=== PATIENT | female | born 1980 | race Caucasian/White ===

== ENCOUNTER 2016-04-19 22:41 | Observation (INO) | payer OTHER ==
[~2016-04-19] VITALS: Ht 180.3 cm; Wt 68.0 kg
[~2016-04-19 22:41] MED LIST: DICL75 PO; ORPH100T PO; Z.0.NO CURRENT MEDS
[2016-04-19 22:42] VITALS: BP 121/80; PULSE 95; RESP 20; TEMP 98.8; O2SAT 98
[2016-04-19] MEDS ORDERED: SODIUM CHLOR 0.9% 1000 ML INJ 1,000 ML IV ONE (23:15)
[2016-04-19] MEDS ORDERED: GLUCAGON 1 MG/ML VIAL IV PUSH ONE (23:15)
[2016-04-19] MEDS ORDERED: PANTOPRAZOLE SODIUM 40 MG VIAL IV PUSH ONE (23:30)
--- NOTE | 2016-04-19 23:37 | PD ---
HPI Chief Complaint: Foreign Body Time Seen by Provider: 23:01 Travel History International Travel<30 days: No Contact w/Intl Traveler<30days: No Traveled to known affect area: No History of Present Illness HPI The patient is a 36 year old female who presents to the [facility] emergency department with a history of reportedly having difficulty swallowing some starchy foods and meat over the last year. She reports that she has had associated heartburn and reflux. She reports that she has tried Prevacid without any relief. She reports that over the last month her symptoms have greatly worsened. She reports that today she went to [employer] and ate a sample of steak and asparagus and immediately began to choke on it. She reports that she did not cough, however it felt like the food was stuck in her throat. The patient reports that since then she has not been able to drink any fluids. She reports that she cannot even swallow her own saliva. She reports having central burning sensation in her chest. The patient denies having any blood in her stool or black or tarry stools. She reports that she last moved her bowels on Wednesday. She reports having problems with chronic constipation. She reports that she occasionally takes MiraLAX or senna. The patient reports that she has a history of migraine headaches and usually will have a headache 3-4 times per week. She reports that she takes BC powder 3-4 times per week for this. She denies taking any other olwo-fri-lxraicc pain medication. She reports that she drinks alcohol, usually 2 glasses of wine weekend. The patient denies having a primary care physician. She denies ever having endoscopy. The patient denies any recent fevers, cough, congestion, neck pain, shortness of breath, abdominal pain, vomiting, diarrhea, urinary symptoms, or neurologic symptoms. LMP: [facility] Past Medical History Narrative Medical The patient's past medical history is significant for ovarian cysts, history of headaches. Medical History: Denies Significant Hx Diminished Hearing: No ?: Not : 1 Miscarriage: 1 Ovarian Cysts: Yes (CYSTS REMOVED 2003) Past Surgical History Narrative Surgical The patient's past surgical history is significant for 2 ovarian cysts being resected laparoscopically. Gynecologic Surgery: Yes (OVARIAN CYST 2003) Social History Alcohol Use: Yes (WEEKENDS) Tobacco Use: No Substance Use: No (DENIES) Allergies-Medications (Allergen,Severity, Reaction): Coded Allergies: No Known Allergies (Verified , 04/19/16) Reported Meds & Prescriptions Reported Meds & Active Scripts Active Pantoprazole (Pantoprazole Sodium) 40 Mg Tab 40 Mg PO DAILY 30 Days Reported Seasonique (Levonorgestrel-Ethinyl Estradiol) 0.15-0.03-0.01 Mg Tab 1 Tab PO DAILY Narrative Medication She reports taking BC powders for headaches 3-4 times per week. Review of Systems Except as stated in HPI: all other systems reviewed are Neg General / Constitutional: No: Fever Eyes: No: Visual changes HENT: No: Headaches Cardiovascular: Positive: Chest Pain or Discomfort Respiratory: No: Cough, Shortness of Breath Gastrointestinal: Positive: Nausea, Constipation, Indigestion, No: Vomiting, Diarrhea, Abdominal Pain, Changes in Bowel Habits, Loss of Appetite Genitourinary: No: Dysuria Musculoskeletal: No: Pain Skin: No Rash Neurologic: No: Weakness Psychiatric: No: Depression Endocrine: No: Polydipsia Hematologic/Lymphatic: No: Easy Bruising Physical Exam Narrative General: The patient is well-developed well-nourished female who is uncomfortable appearing on examination, intermittently spitting saliva into a cup. Head and Neck exam: Head is normocephalic atraumatic. Eyes: EOMI, pupils are equal round and reactive to light. Nose: Midline septum with pink mucous membranes Mouth: Dentition unremarkable. Moist mucus membranes. Posterior oropharynx is not erythematous. No tonsillar hypertrophy. Uvula midline. Airway patent. Neck: No palpable lymphadenopathy. No nuchal rigidity. No thyromegaly. Cardiovascular: Regular rate and rhythm without murmurs, gallops, or rubs. Lungs: Clear to auscultation bilaterally. No wheezes, rhonchi, or rales. Abdomen: Soft, without tenderness to palpation in all 4 quadrants of the abdomen. No guarding, rebound, or rigidity. Normal bowel sounds are audible. No tenderness on palpation of McBurney's point. Extremities: No clubbing, cyanosis, or edema. 2+ pulses in all 4 extremities. No calf tenderness on palpation. Back: No spinous process tenderness to palpation. No costovertebral angle tenderness to palpation. Neurologic Exam: Grossly nonfocal. Skin Exam: No rash noted. Intact skin that is warm and dry. Data Data Last Documented VS Vital Signs Date Time Temp Pulse Resp B/P Pulse Ox O2 Delivery O2 Flow Rate FiO2 04/19/16 22:42 98.8 95 20 121/80 98 Room Air Orders Chest, Single Ap (04/19/16 23:13) Iv Access Insert/Monitor (04/19/16 23:13) Ecg Monitoring (04/19/16 23:13) Oximetry (04/19/16 23:13) Sodium Chlor 0.9% 1000 Ml Inj (Ns 1000 M (04/19/16 23:15) Glucagon Inj (Glucagon Inj) (04/19/16 23:15) Electrocardiogram (04/19/16 23:29) Complete Blood Count With Diff (04/19/16 23:29) Comprehensive Metabolic Panel (04/19/16 23:29) Lipase (04/19/16 23:29) Ed Urine Pregnancytest Poc (04/19/16 23:29) Pantoprazole Inj (Protonix Inj) (04/19/16 23:30) Admit Order (Ed Use Only) (04/20/16 01:01) Labs Laboratory Tests Test 04/19/16 23:40 White Blood Count 14.5 TH/MM3 Red Blood Count 3.79 MIL/MM3 Hemoglobin 11.2 GM/DL Hematocrit 32.5 % Mean Corpuscular Volume 85.8 FL Mean Corpuscular Hemoglobin 29.4 PG Mean Corpuscular Hemoglobin 34.3 % Concent Red Cell Distribution Width 13.3 % Platelet Count 555 TH/MM3 Mean Platelet Volume 7.7 FL Neutrophils (%) (Auto) 75.9 % Lymphocytes (%) (Auto) 13.0 % Monocytes (%) (Auto) 6.9 % Eosinophils (%) (Auto) 3.7 % Basophils (%) (Auto) 0.5 % Neutrophils # (Auto) 11.0 TH/MM3 Lymphocytes # (Auto) 1.9 TH/MM3 Monocytes # (Auto) 1.0 TH/MM3 Eosinophils # (Auto) 0.5 TH/MM3 Basophils # (Auto) 0.1 TH/MM3 CBC Comment DIFF FINAL Differential Comment Sodium Level 141 MEQ/L Potassium Level 3.7 MEQ/L Chloride Level 106 MEQ/L Carbon Dioxide Level 24.5 MEQ/L Anion Gap 11 MEQ/L Blood Urea Nitrogen 14 MG/DL Creatinine 0.72 MG/DL Estimat Glomerular Filtration 91 ML/MIN Rate Random Glucose 82 MG/DL Calcium Level 8.7 MG/DL Total Bilirubin 0.2 MG/DL Aspartate Amino Transf 10 U/L (AST/SGOT) Alanine Aminotransferase 15 U/L (ALT/SGPT) Alkaline Phosphatase 92 U/L Total Protein 8.1 GM/DL Albumin 3.3 GM/DL Lipase 81 U/L MDM Medical Decision Making Medical Screen Exam Complete: Yes Emergency Medical Condition: Yes Medical Record Reviewed: Yes Interpretation(s) Laboratory Tests Test 04/19/16 23:40 White Blood Count 14.5 TH/MM3 (4.0-11.0) Red Blood Count 3.79 MIL/MM3 (4.00-5.30) Hemoglobin 11.2 GM/DL (11.6-15.3) Hematocrit 32.5 % (35.0-46.0) Platelet Count 555 TH/MM3 (150-450) Neutrophils (%) (Auto) 75.9 % (16.0-70.0) Neutrophils # (Auto) 11.0 TH/MM3 (1.8-7.7) Monocytes # (Auto) 1.0 TH/MM3 (0-0.9) Eosinophils # (Auto) 0.5 TH/MM3 (0-0.4) Aspartate Amino Transf 10 U/L (15-37) (AST/SGOT) Albumin 3.3 GM/DL (3.4-5.0) Last Impressions Chest X-Ray 04/19/16 5750 Signed Impressions: Service Date/Time: Tuesday, April 19, 2016 23:21 - CONCLUSION: 1. No foreign body is identified. 2. Possible nodule right base Grayson Aceves MD Differential Diagnosis Acid reflux with stricture formation, versus esophageal food bolus Narrative Course During the course of the patients emergency department visit, the patients history, examination, and differential diagnosis were reviewed with the patient. The patient had IV access obtained and blood work sent for analysis. The patient was placed on a electronic device monitor with oximetry and blood pressure monitoring. An EKG has been ordered. A chest x-ray has been ordered. The patient was provided Protonix 40 mg IV, normal saline 1 L IV fluid bolus, glucagon 0.5 mg IV. The patients laboratory studies were reviewed and remarkable for a white count of 14.5, hemoglobin 11.2, platelets 555, neutrophils 75.9, CMP is unremarkable. Lipase 81 Radiology studies were reviewed and remarkable for a chest x-ray that shows no foreign body, possible nodule right lung base. The patient was reexamined and reported some improvement after the glucagon, however she was given a trial of by mouth hydration and again was not able to tolerate by mouth and vomited and continued to spit out her saliva which she was not able to swallow. A call was placed out to the keyboard teacher hot stone setter. He reports that he will not be able to do her endoscopy until the morning. The patient will be admitted for observation for pain control, IV fluids. The patients results were discussed with the patient, including the plan of care. I explained that further testing and/ or monitoring is indicated based on the patients history, examination, and/ or laboratory findings. Therefore, I recommended admission for additional evaluation. The patient expressed understanding and was agreeable with this plan. The patient was admitted to the hospital in stable condition and sent to a bed under the care of the [facility] service. Physician Communication Physician Communication I spoke to Dr. Mullen at 12:45 AM. He requested that the patient be observed and nothing by mouth as he plans to take the patient for endoscopy in the morning. A call was then placed out to the [facility] regarding admission. The patient's case is discussed with Dr. Torres who did agree to admit the patient for further evaluation and treatment at this time. Diagnosis Primary Impression: Intractable vomiting Qualified Code: R11.11 - Intractable vomiting without nausea, unspecified vomiting type Additional Impression: Sensation of foreign body in esophagus Admitting Information Admitting Physician Requests: Observation Scripts Pantoprazole 40 Mg Tab40 Mg PO DAILY 30 Days Prov:Yessi Alexis DO 04/20/16 Rebecca Liz MD Apr 19, 2016 23:37
--- NOTE | 2016-04-20 00:02 | RADRPT ---
EXAM DATE/TIME: 04/19/2016 23:21 [place] COMPARISON: No previous studies available for comparison. INDICATIONS : Foreign body. MEDICAL HISTORY : None. SURGICAL HISTORY : None. ENCOUNTER: Initial ACUITY: 1 day PAIN SCORE: 0/10 LOCATION: Bilateral chest FINDINGS: The cardiac silhouette is normal in transverse diameter. There is no evidence of pneumonia. No forei gn body is identified. There is a questionable nodule in the right base. The maximal diameter of this finding is [address] scan is recommended for further evaluation if clinically indicated. This can be performed on an elective basis. CONCLUSION: 1. No foreign body is identified. 2. Possible nodule right base Grayson Aceves MD on April 19, 2016 at 23:59 Board Certified Radiologist. This report was verified electronically.
[2016-04-20 00:11] LABS: BASOPHIL # 0.1 TH/MM3 (0-0.2); BASOPHIL % 0.5 % (0.0-2.0); EOSINOPHIL # 0.5 TH/MM3 (0-0.4); EOSINOPHIL % 3.7 % (0.0-4.0); HEMATOCRIT 32.5 % (35.0-46.0); HEMO FLAGS DIFF FINAL; LYMPHOCYTE # 1.9 TH/MM3 (1.0-4.8); MEAN CELL VOLUME 85.8 FL (80.0-100.0); MEAN CORPUSCULAR HEMOGLOBIN 29.4 PG (27.0-34.0); MEAN CORPUSCULAR HGB CONC 34.3 % (32.0-36.0); MONO % 6.9 % (0.0-8.0); NEUT % 75.9 % (16.0-70.0); PLATELET COUNT 555 TH/MM3 (150-450); RED BLOOD COUNT 3.79 MIL/MM3 (4.00-5.30); RED CELL DISTRIBUTION WIDTH 13.3 % (11.6-17.2); WHITE BLOOD COUNT 14.5 TH/MM3 (4.0-11.0)
[2016-04-20 00:17] LABS: ALT (GPT) 15 U/L (10-53); ANION GAP 11 MEQ/L (5-15); AST (GOT) 10 U/L (15-37); BICARBONATE 24.5 MEQ/L (21.0-32.0); BLOOD UREA NITROGEN 14 MG/DL (7-18); CHLORIDE 106 MEQ/L (98-107); GLOMERULAR FILTRATION RATE 91 ML/MIN (>89); POTASSIUM 3.7 MEQ/L (3.5-5.1); SODIUM (NA) 141 MEQ/L (136-145)
[2016-04-20 00:19] LABS: ALKALINE PHOSPHATASE 92 U/L (45-117); TOTAL BILIRUBIN ADULT 0.2 MG/DL (0.2-1.0)
[2016-04-20] MEDS ORDERED: SODIUM CHLOR 0.9% 1000 ML INJ 1,000 ML IV SCH (01:06)
[2016-04-20] MEDS ORDERED: SODIUM CHLORIDE 0.9% FLUSH 5 ML FLUSH FLUSH PRN (01:15)
[2016-04-20] MEDS ORDERED: ONDANSETRON HCL 4 MG/2 ML VIAL IVP PRN (01:15)
[2016-04-20] MEDS ORDERED: BISACODYL 10 MG SUPP PR PRN (01:15)
[2016-04-20] MEDS ORDERED: SEASTAB2 PO (01:42)
--- NOTE | 2016-04-20 02:18 | HHI.HP ---
[facility] No Primary Care Physician Admission Diagnosis Inability to tolerate po, suspected esophageal food bolus Diagnoses: (1) Food impaction of esophagus Diagnosis: Principal (2) Intractable vomiting Diagnosis: Principal (3) Leukocytosis Diagnosis: Principal Travel History International Travel<30 Days: No Contact w/Intl Traveler <30 Da: No Traveled to Known Affected Are: No History of Present Illness This is a 36-year-old female with a PMH of Migraines who presented to the ER with complaints of sensation of foreign body in esophagus after eating. States she was at [employer] and tried a sample of steak/asparagus and immediately felt food stuck in throat. Unable to swallow liquids or solids since then, difficulty swallowing saliva as well. On arrival, BP 121/80, HR 95, O2 sat 90% on RA, Afebrile. WBC 14.5. Chemistry essentially unremarkable. CXR with no foreign body identified. Dr. Mullen consulted by ER physician, plan for EGD in am. Review of Systems Except as stated in HPI: all other systems reviewed are Neg ROS: 14 point review of systems otherwise negative. Past Family Social History Past Medical History PMH: Migraines Past Surgical History PAST SURGICAL HISTORY: Ovarian Cyst Allergies: Coded Allergies: No Known Allergies (Verified , 04/19/16) Family History PAST FAMILY HISTORY: Reviewed. No h/o DM or CAD Social History PAST SOCIAL HISTORY: Occasional alcohol. Negative for tobacco or drugs. Physical Exam Vital Signs Vital Signs Date Time Temp Pulse Resp B/P Pulse Ox O2 Delivery O2 Flow Rate FiO2 04/19/16 22:42 98.8 95 20 121/80 98 Room Air Physical Exam PE: GENERAL: Pleasant middle-aged white female in no acute distress. HEENT: PERRLA, EOMI. No scleral icterus or conjunctival pallor. No lid lag or facial droop. CARDIOVASCULAR: Regular rate and rhythm. No obvious murmurs to auscultation. No chest tenderness to palpation. RESPIRATORY: No obvious rhonchi or wheezing. Clear to auscultation. Breath sounds equal bilaterally. GASTROINTESTINAL: Abdomen soft, non-tender, nondistended. BS normal. MUSCULOSKELETAL: Extremities without clubbing, cyanosis, or edema. No obvious deformities. NEUROLOGICAL: Awake, alert and oriented x4. No focal neurologic deficits. Moving both upper and lower extremities spontaneously. Laboratory Laboratory Tests Test 04/19/16 23:40 White Blood Count 14.5 Red Blood Count 3.79 Hemoglobin 11.2 Hematocrit 32.5 Mean Corpuscular Volume 85.8 Mean Corpuscular Hemoglobin 29.4 Mean Corpuscular Hemoglobin 34.3 Concent Red Cell Distribution Width 13.3 Platelet Count 555 Mean Platelet Volume 7.7 Neutrophils (%) (Auto) 75.9 Lymphocytes (%) (Auto) 13.0 Monocytes (%) (Auto) 6.9 Eosinophils (%) (Auto) 3.7 Basophils (%) (Auto) 0.5 Neutrophils # (Auto) 11.0 Lymphocytes # (Auto) 1.9 Monocytes # (Auto) 1.0 Eosinophils # (Auto) 0.5 Basophils # (Auto) 0.1 CBC Comment DIFF FINAL Differential Comment Sodium Level 141 Potassium Level 3.7 Chloride Level 106 Carbon Dioxide Level 24.5 Anion Gap 11 Blood Urea Nitrogen 14 Creatinine 0.72 Estimat Glomerular Filtration 91 Rate Random Glucose 82 Calcium Level 8.7 Total Bilirubin 0.2 Aspartate Amino Transf 10 (AST/SGOT) Alanine Aminotransferase 15 (ALT/SGPT) Alkaline Phosphatase 92 Total Protein 8.1 Albumin 3.3 Lipase 81 Result Diagram: 04/19/16233904/19/162339 Assessment and Plan Problem List: (1) Food impaction of esophagus ICD Code: T18.128A Status: Acute (2) Intractable vomiting ICD Code: R11.10 Status: Acute (3) Leukocytosis ICD Code: D72.829 Status: Acute Assessment and Plan A/P: 1. Food Impaction: s/p acute food impaction after eating steak/asparagus earlier tonight, unable to swallow saliva, liquids or solids. CXR w/ no foreign body noted, images reviewed by me. Dr. Mullen consulted by ER physician, plan is for EGD in am. NPO, IVF, analgesics as needed. 2. Intractable Vomiting: now resolved. Continue w/ IV Zofran as needed. 3. Leukocytosis: WBC 14.5, no clear infectious etiology, likely stress response. CXR negative as above. 4. DVT Prophylaxis: SCD/Teds. 5. Social work for d/c planning as needed. 6. Case discussed w/ ER physician at length. Tamiko Torres MD Apr 20, 2016 02:18
[2016-04-20 03:06] VITALS: BP 104/68; PULSE 89; RESP 18; TEMP 97.9; O2SAT 99
[2016-04-20] MEDS: MORPHINE SULFATE 4 MG/ML INJ IV PRN ×4 (03:16→13:21)
[2016-04-20 08:00] VITALS: BP 110/55; PULSE 83; RESP 18; TEMP 99; O2SAT 98
[2016-04-20] MEDS ORDERED: SODIUM CHLORIDE 0.9% FLUSH 5 ML FLUSH FLUSH SCH (09:00)
[2016-04-20 09:35] VITALS: BP 104/68; PULSE 89; RESP 18; TEMP 97.9; O2SAT 99
--- NOTE | 2016-04-20 09:38 | EKG ---
Date Performed: 04/19/2016 Time Performed: 23:49:56 PTAGE: 36 years EKG: Sinus rhythm NORMAL ECG NO PREVIOUS TRACING DOCTOR: Grayson Grace Interpretating Date/Time 04/20/2016 09:36:23
[2016-04-20] MEDS ORDERED: LACTATED RINGER'S 1,000 ML BAG IV ONE (11:00)
[2016-04-20] MEDS ORDERED: ONDANSETRON HCL 4 MG/2 ML VIAL IV PUSH ONE (11:16)
[2016-04-20] MEDS ORDERED: PROPOFOL 200 MG/20 ML AMP IV ONE (11:16)
[2016-04-20 11:35] VITALS: TEMP 98.4
[2016-04-20 11:45] VITALS: BP 113/2; PULSE 84; RESP 16; O2SAT 96
--- NOTE | 2016-04-20 12:29 | PD.CONS ---
HPI History of Present Illness This is a 36 year old female who came to the ER for evaluation after getting a piece of meat caught in her esophagus. She reports that she has been having issues with dry solids occasionally getting caught in her mid esophagus for about a year. This seems to have been gradually worsening, although it suddenly became much worse about a week ago. She was at [employer] and had a sample of steak and asparagus and reports that it became lodged and that she could not get this to go down and that she could not even pass any water. She denies any heartburn or reflux prior to this, but did have some after the food became lodged. She reports that her appetite has been good up until this point and she has not had any other GI issues. Of note, she does get migraines and she takes BC ASA about 3-4 times a week. (Ana Cristina Cochran) PFSH Past Medical History Migraines Past Surgical History Surgery for Ovarian Cyst LEEP procedure (Ana Cristina Cochran) Coded Allergies: No Known Allergies (Verified , 04/19/16) Medications Allergies Coded Allergies Type Severity Reaction Last Updated Verified No Known Allergies 04/19/16 Yes Active Scripts Medications Dose Route/Sig Days Date Category Seasonique (Levonorgestrel-Ethinyl Estradiol) 0.15-0.03-0.01 Mg Tab 1 Tab PO DAILY 04/20/16 Reported Family History Maternal grandmother has DM Social History Occasional alcohol. Negative for tobacco or drugs. (Ana Cristina Cochran) Review of Systems Constitutional: DENIES: Fatigue, Weight loss Respiratory: DENIES: Cough Cardiovascular: DENIES: Chest pain Gastrointestinal: COMPLAINS OF: Difficulty Swallowing, Odynophagia, Heartburn, DENIES: Abdominal pain, Black stools, Bloody stools, Constipation, Diarrhea, Nausea, Vomiting, Anorexia Musculoskeletal: DENIES: Joint pain Integumentary: DENIES: Abnormal pigmentation Hematologic/lymphatic: DENIES: Bruising Neurologic: COMPLAINS OF: Headache Psychiatric: DENIES: Confusion (Ana Cristina Cochran) GI Exam Vitals I&O Vital Signs Date Time Temp Pulse Resp B/P Pulse Ox O2 Delivery O2 Flow Rate FiO2 04/20/16 11:45 84 16 113/2 96 Room Air 04/20/16 11:35 98.4 98 16 117/75 97 Room Air 04/20/16 09:35 97.9 89 18 104/68 99 04/20/16 08:00 99.0 83 18 110/55 98 04/20/16 03:06 97.9 89 18 104/68 99 04/19/16 22:42 98.8 95 20 121/80 98 Room Air I/O 04/19/16 04/19/16 04/19/16 04/20/16 04/20/16 04/20/16 07:00 15:00 23:00 07:00 15:00 23:00 Intake Total 300 ml 10 ml Balance 300 ml 10 ml Intake IV Total 300 ml 10 ml Imaging Last Impressions Chest X-Ray 04/19/16 8643 Signed Impressions: Service Date/Time: Tuesday, April 19, 2016 23:21 - CONCLUSION: 1. No foreign body is identified. 2. Possible nodule right base Grayson Aceves MD Laboratory Test 04/19/16 23:40 White Blood Count 14.5 TH/MM3 Red Blood Count 3.79 MIL/MM3 Hemoglobin 11.2 GM/DL Hematocrit 32.5 % Mean Corpuscular Volume 85.8 FL Mean Corpuscular Hemoglobin 29.4 PG Mean Corpuscular Hemoglobin 34.3 % Concent Red Cell Distribution Width 13.3 % Platelet Count 555 TH/MM3 Mean Platelet Volume 7.7 FL Neutrophils (%) (Auto) 75.9 % Lymphocytes (%) (Auto) 13.0 % Monocytes (%) (Auto) 6.9 % Eosinophils (%) (Auto) 3.7 % Basophils (%) (Auto) 0.5 % Neutrophils # (Auto) 11.0 TH/MM3 Lymphocytes # (Auto) 1.9 TH/MM3 Monocytes # (Auto) 1.0 TH/MM3 Eosinophils # (Auto) 0.5 TH/MM3 Basophils # (Auto) 0.1 TH/MM3 CBC Comment DIFF FINAL Differential Comment Sodium Level 141 MEQ/L Potassium Level 3.7 MEQ/L Chloride Level 106 MEQ/L Carbon Dioxide Level 24.5 MEQ/L Anion Gap 11 MEQ/L Blood Urea Nitrogen 14 MG/DL Creatinine 0.72 MG/DL Estimat Glomerular Filtration 91 ML/MIN Rate Random Glucose 82 MG/DL Calcium Level 8.7 MG/DL Total Bilirubin 0.2 MG/DL Aspartate Amino Transf 10 U/L (AST/SGOT) Alanine Aminotransferase 15 U/L (ALT/SGPT) Alkaline Phosphatase 92 U/L Total Protein 8.1 GM/DL Albumin 3.3 GM/DL Lipase 81 U/L Physical Examination HEENT: Normocephalic; atraumatic; no jaundice. Throat is clear. NECK: Neck is supple, no JVD, no lymphadenopathy. CHEST: CTA CARDIAC: Regular rate and rhythm with no murmur gallop or rubs. ABDOMEN: Soft, nondistended, nontender; no hepatosplenomegaly; bowel sounds are present in all four quadrants. EXTREMITIES: No clubbing, cyanosis, or edema. SKIN: Normal; no rash; no jaundice. HISTOPATH TECH: No focal deficits; alert and oriented times three. (Ana Cristina Cochran) Assessment and Plan Plan ASSESSMENT: - Foreign Body in esophagus, Dysphagia, Odynophagia. Intermittent dysphagia with dry foods getting caught x 1 year, worse over the past week. Had a piece of steak and asparagus get lodged in esophagus yesterday and was not able to get this down or pass liquids. Of note, she takes BC ASA about 3-4 times a week for migraines. PLAN: - Plan for egd +/- dilatation today - Obtain consents - NPO - PPI - Supportive care - Further recommendations to follow based on results of above - Pt seen and examined by Dr. Garcia and myself and this note is written on her behalf (Ana Cristina Cochran) Physician Comments seen, examined agree with above (Aga Garcia MD) Ana Cristina Cochran Apr 20, 2016 12:29 Aga Garcia MD Apr 20, 2016 18:47
[2016-04-20] MEDS ORDERED: PANT40TA3 PO (14:40)
--- NOTE | 2016-04-20 14:45 | HHI.PR ---
Subjective Remarks Follow up for food impaction. Ms. Hood underwent EGD study today. She is complaining of some discomfort but able to eat small amount. No fever, chills. GI cleared for discharge. Objective Vitals Vital Signs Date Time Temp Pulse Resp B/P Pulse Ox O2 Delivery O2 Flow Rate FiO2 04/20/16 11:45 84 16 113/2 96 Room Air 04/20/16 11:35 98.4 98 16 117/75 97 Room Air 04/20/16 09:35 97.9 89 18 104/68 99 04/20/16 08:00 99.0 83 18 110/55 98 04/20/16 03:06 97.9 89 18 104/68 99 04/19/16 22:42 98.8 95 20 121/80 98 Room Air I/O 04/19/16 04/19/16 04/19/16 04/20/16 04/20/16 04/20/16 07:00 15:00 23:00 07:00 15:00 23:00 Intake Total 300 ml 10 ml Balance 300 ml 10 ml Intake IV Total 300 ml 10 ml Result Diagram: 04/19/16 2340 04/19/16 2340 Imaging Last Impressions Chest X-Ray 04/19/16 2313 Signed Impressions: Service Date/Time: Tuesday, April 19, 2016 23:21 - CONCLUSION: 1. No foreign body is identified. 2. Possible nodule right base Grayson Aceves MD Objective Remarks GENERAL: AOX3, NAD. SKIN: Warm and dry. HEAD: Normocephalic. EYES: No scleral icterus. No injection or drainage. NECK: Supple, trachea midline. No JVD or lymphadenopathy. CARDIOVASCULAR: Regular rate and rhythm without murmurs, gallops, or rubs. RESPIRATORY: Breath sounds equal bilaterally. No accessory muscle use. GASTROINTESTINAL: Abdomen soft, non-tender, nondistended. MUSCULOSKELETAL: No cyanosis, or edema. BACK: Nontender without obvious deformity. No CVA tenderness. Procedures EGD 04/20/2016. A/P Problem List: (1) Food impaction of esophagus ICD Code: T18.128A Status: Acute (2) Intractable vomiting ICD Code: R11.10 Status: Acute (3) Leukocytosis ICD Code: D72.829 Status: Acute Assessment and Plan Ms. Hood is a 36-year-old female with a PMH of Migraines who presented to the ER with complaints of sensation of foreign body in esophagus after eating. EGD was done with dilation and disimpaction. - Esophageal food impaction - s/p EGD. - GI recommends PPI, avoid NSAIDs. - Retroflexed hiatal hernia noted as well as gastritis with superficial ulceration antrum. Full code. Ambulation. Discharge patient to home Condition on discharge: Improved Regular Diet as tolerated Ad Ginger activity Rx written: - Protonix 40mg Qday. Follow-up with GI within two weeks. Yessi Alexis DO Apr 20, 2016 2:45 pm
[2016-04-21] MEDS ORDERED: PANTOPRAZOLE SOD 40 MG DELAYED RELEASE TAB PO SCH (09:00)
== END 2016-04-20 15:24 | disposition home or self-care (01) ==
LOC: NEPE 22:41 → NEDA 04-20 01:03 → NEPFCDU 04-20 02:57
PROVIDERS: ADMIT Hospitalist; ATTEND Hospitalist
DX: T18.128A Food in esophagus causing other injury, initial encounter (principal); K29.70 Gastritis, unspecified, without bleeding; K44.9 Diaphragmatic hernia without obstruction or gangrene; K21.9 Gastro-esophageal reflux disease without esophagitis; D72.829 Elevated white blood cell count, unspecified; K59.09 Other constipation; G43.909 Migraine, unspecified, not intractable, without status migrainosus
CPT/HCPCS: 00740; 43239; 43248; 71010; 80053; 83690; 84703; 85025; 88305; 88312; 93005; 96374; 96375; 99285; C1769; C9113; G0378; J1610; J2270; J2405; J3010; J7030; J7120

== ENCOUNTER 2017-03-03 11:10 | Emergency (ER) | payer SELFPAY ==
[~2017-03-03 11:10] MED LIST changes: -DICL75 PO; -ORPH100T PO; +PANT40TA3 PO; +SEASTAB2 PO; -Z.0.NO CURRENT MEDS
[2017-03-03 11:13] VITALS: BP 129/89; PULSE 99; RESP 18; TEMP 97.5; O2SAT 100
[2017-03-03] MEDS ORDERED: PREV15CA20 PO (11:35)
--- NOTE | 2017-03-03 11:37 | PD ---
HPI Chief Complaint: Cold / Flu Symptoms Time Seen by Provider: 11:24 Travel History International Travel<30 days: No Contact w/Intl Traveler<30days: No Traveled to known affect area: No History of Present Illness HPI 36-year-old female presents to the emergency Department with complaint of nasal congestion, cough, bilateral ear pain, chest congestion for the last 3-4 weeks with worsening the past few days. Reports subjective fevers and chills. Denies throat pain. Reports shortness of breath, chest tightness, wheezing. Denies chest pain. Report body aches. Denies vomiting, abdominal pain. Been taking [place] for symptom management. If symptoms are mild in severity. He does not have an established primary care provider. Denies significant past medical history. No known allergies. Has no other medical complaints. No other modifying factors or associated signs and symptoms. PFSH Past Medical History Anxiety: Yes Depression: Yes Cancer: No Cardiovascular Problems: No Chemotherapy: No Diminished Hearing: No Endocrine: No Genitourinary: No Immune Disorder: No Musculoskeletal: No Neurologic: No Psychiatric: Yes Reproductive: No Respiratory: No Radiation Therapy: No ?: Not : 1 Miscarriage: 1 Ovarian Cysts: Yes (CYSTS REMOVED 2003) Past Surgical History Gynecologic Surgery: Yes (OVARIAN CYST 2003) Social History Alcohol Use: Yes (WEEKENDS) Tobacco Use: No Substance Use: No (DENIES) Allergies-Medications (Allergen,Severity, Reaction): Coded Allergies: No Known Allergies (Verified Adverse Reaction, Unknown, 03/03/17) Reported Meds & Prescriptions Reported Meds & Active Scripts Active Deltasone (Prednisone) 20 Mg Tab 20 Mg PO BID 5 Days Ventolin Hfa 18 GM Inh (Albuterol Sulfate) 90 Mcg/Act Aer 2 Puff INH Q4-6H PRN Tessalon Perles (Benzonatate) 100 Mg Cap 100 Mg PO TID PRN 3 Days Azithromycin 500 Mg Tab 500 Mg PO DAILY 5 Days Reported Prevacid (Lansoprazole) 15 Mg Capdr 15 Mg PO DAILY Review of Systems Except as stated in HPI: all other systems reviewed are Neg Physical Exam Narrative GENERAL: Well-nourished, well-developed female patient, in no acute distress; afebrile, nontoxic-appearing SKIN: Warm and dry. HEAD: Atraumatic. Normocephalic. EYES: Pupils equal and round. No scleral icterus. No injection or drainage. ENT: Mucosa pink and moist. No erythema or exudates. No uvular edema. No uvular , palatal, or tonsillar deviation. Airway patent. Nares without nasal blood, purulent drainage. EARS: Bilateral pinnae and external canals appear within normal limits. Bilateral tympanic membranes without erythema, dullness or perforation. NECK: Trachea midline. No lymphadenopathy. CARDIOVASCULAR: Regular rate and rhythm. No murmur appreciated. RESPIRATORY: No accessory muscle use. Lungs with mild Wheezing in bilateral bases to auscultation. Breath sounds equal bilaterally. No retractions or tachypnea. No Audible wheezing noted. Persistent dry cough. GASTROINTESTINAL: Abdomen soft, non-tender, nondistended. Hepatic and splenic margins not palpable. Bowel sounds are active 4 quadrants. MUSCULOSKELETAL: No obvious deformities. No clubbing. No cyanosis. No edema. NEUROLOGICAL: Awake and alert. Oriented 3. No obvious cranial nerve deficits. Motor grossly within normal limits. Normal speech. Moves all extremities. 5/5 strength to all extremities. PSYCHIATRIC: Appropriate mood and affect; insight and judgment normal. Data Data Last Documented VS Vital Signs Date Time Temp Pulse Resp B/P (MAP) Pulse Ox O2 Delivery O2 Flow Rate FiO2 03/03/17 11:30 Room Air 03/03/17 11:13 97.5 99 18 129/89 (102) 100 Orders Orders Chest, Single Ap (03/03/17 11:32) Prednisone (Deltasone) (03/03/17 11:45) Albuterol Neb (Albuterol Neb) (03/03/17 11:45) Influenzae A/B Antigen (03/03/17 11:37) Ed Discharge Order (03/03/17 12:41) [facility] Medical Decision Making Medical Screen Exam Complete: Yes Emergency Medical Condition: Yes Medical Record Reviewed: Yes Differential Diagnosis Bronchitis, influenza, pneumonia, viral illness Narrative Course 36-year-old female with cough/cold/flu symptoms. Patient is afebrile and nontoxic-appearing. Reports subjective fevers. Patient with wheezing in bilateral bases. No acute distress. No retractions or tachypnea. Persistent dry cough. Prednisone, albuterol nebulizer, chest x-ray, influenza ordered. 1235: Chest x-ray concludes: Mild infiltrate in the right middle lobe. On reexamination the patient reports improvement in chest tightness and shortness of breath. Lung sounds are clear and equal throughout. Azithromycin, Ventolin inhaler, prednisone, Tessalon Perles prescribed for home. Instructed patient to follow up with primary care provider. Patient verbalizes understanding and agreement with treatment plan. Patient is medically cleared and stable for discharge. Discussed reasons to return to the emergency department. Patient agrees with treatment plan. The patients vital signs are stable and the patient is stable for outpatient follow-up and treatment. Patient discharged home, stable and in no acute distress. Diagnosis Primary Impression: Pneumonia Qualified Codes: J18.1 - Lobar pneumonia, unspecified organism Referrals: [facility] Primary Care Physician Patient Instructions: Community Acquired Pneumonia (ED), General Instructions, Safe Use of Cough and Cold Medicines (ED) Departure Forms: Tests/Procedures, Work Release Enter return to work date: Mar 05, 2017 Additional Instructions: Ibuprofen or Tylenol as directed and as needed to reduce fever; may alternate ibuprofen and Tylenol as needed every 3 hours to minimize fever Mxez-duk-edtjnue cold/flu medications as directed and as needed for symptom management Get plenty of sleep/rest Drink plenty of fluids to prevent dehydration; such as Gatorade, Powerade, Pedialyte Rudyard diet to encourage nutrition such as crackers, fruit, applesauce, toast, soup etc. Use an air humidifier/turn off ceiling fans Use albuterol inhaler as needed for shortness of breath and/or wheezing Take oral steroids as prescribed and complete full course Follow-up with your primary care provider within 1 day; follow up for repeat chest x-ray in 7-10 days to verify resolution Return immediately to the emergency department with worsening of symptoms Med/Other Pt SpecificInfo: Prescription(s) given Scripts Prednisone (Deltasone) 20 Mg Tab 20 MG PO BID for 5 Days, #10 TAB 0 Refills Prov: Padmini Smith [employer] 03/03/17 Albuterol 18 GM Inh (Ventolin Hfa 18 GM Inh) 90 Mcg/Act Aer 2 PUFF INH Q4-6H Y for SOB/WHEEZING, #1 INHALER 0 Refills Prov: Padmini Smith [employer] 03/03/17 Benzonatate (Tessalon Perles) 100 Mg Cap 100 MG PO TID Y for COUGH for 3 Days, CAP 0 Refills Prov: Padmini Smith 03/03/17 Azithromycin (Azithromycin) 500 Mg Tab 500 MG PO DAILY for Infection for 5 Days, #5 TAB 0 Refills Prov: Padmini Smith 03/03/17 Disposition: 01 DISCHARGE HOME Condition: Stable Padmini Smith Mar 03, 2017 11:37
[2017-03-03] MEDS ORDERED: predniSONE 20 MG TAB PO ONE (11:45)
[2017-03-03] MEDS ORDERED: RESP: ALBUTEROL 2.5 MG/3 ML NEB (SCH) INH ONE (11:45)
--- NOTE | 2017-03-03 12:33 | RADRPT ---
EXAM DATE/TIME: 03/03/2017 12:08 [facility] COMPARISON: CHEST SINGLE AP, April 19, 2016, 23:21. INDICATIONS : Cough. MEDICAL HISTORY : None. SURGICAL HISTORY : None. ENCOUNTER: Initial ACUITY: 3 months PAIN SCORE: 0/10 LOCATION: Bilateral chest FINDINGS: A single view of the chest demonstrates a mild infiltrate in the right middle lobe. Otherwise, the re st of lung cabrera are grossly clear. There are no pleural effusions or pulmonary edema. The heart and hilar structures are within normal limits. The bony structures are intact and stable.. CONCLUSION: Mild infiltrate in the right middle lobe. Guy Arzola MD on March 03, 2017 at 12:30 Board Certified Radiologist. This report was verified electronically.
[2017-03-03] MEDS ORDERED: BENZ100 PO (12:36)
[2017-03-03] MEDS ORDERED: PRED-503 PO (12:36)
[2017-03-03] MEDS ORDERED: VENTAER INH (12:36)
[2017-03-03] MEDS ORDERED: AZIT500T2 PO (12:36)
[2017-03-10] MEDS ORDERED: SEASTAB2 PO ×2 (14:48→15:28)
[2017-03-10] MEDS ORDERED: LEVO500T8 PO (15:28)
[2017-03-10] MEDS ORDERED: VENTAER INH (15:28)
== END 2017-03-03 13:25 | disposition home or self-care (01) ==
LOC: NEPD 11:10
DX: J18.1 Lobar pneumonia, unspecified organism (principal)
CPT/HCPCS: 71010; 99284; J7512; J7613

== ENCOUNTER 2017-05-12 07:42 | Day surgery (SDC) | payer OTHER ==
[2017-05-12] VITALS (8 sets, daily range): BP systolic 78–116; BP diastolic 46–69; PULSE 82–122; RESP 17–22; TEMP 97.8–98.8; O2SAT 97–99
[~2017-05-12] VITALS: Ht 180.3 cm; Wt 58.2 kg
[~2017-05-12 07:42] MED LIST changes: +LEVO500T8 PO; -PANT40TA3 PO; +PREV15CA20 PO; +VENTAER INH
[2017-05-12] MEDS ORDERED: RANI150T PO (07:56)
[2017-05-12] MEDS ORDERED: MELO7.5T27 PO (07:57)
[2017-05-12] MEDS ORDERED: HYDR50TA94 PO (07:57)
[2017-05-12] MEDS ORDERED: LEVO2.5S4 PO (08:00)
[2017-05-12] MEDS ORDERED: SODIUM CHLOR 0.9% 1000 ML IV SCH (08:00)
[2017-05-12] MEDS ORDERED: SACC1CAP3 PO (08:01)
[2017-05-12] MEDS ORDERED: FISHCAP4 PO (08:02)
[2017-05-12] MEDS ORDERED: CALG500 PO (08:03)
[2017-05-12] MEDS ORDERED: VITA500T4 PO (08:04)
[2017-05-12] MEDS ORDERED: MAGN250T11 PO (08:05)
[2017-05-12] MEDS ORDERED: FERR325T18 PO (08:05)
[2017-05-12] MEDS ORDERED: LIDOCAINE HCL 1% 20 ML VIAL ONE ×2 (08:33→10:47)
[2017-05-12] MEDS ORDERED: MIDAZOLAM HCL 5 MG/5 ML VIAL ONE (08:50)
[2017-05-12] MEDS ORDERED: fentaNYL CITRATE 250 MCG/5 ML AMP ONE (08:50)
[2017-05-12] MEDS ORDERED: diphenhydrAMINE HCL 50 MG/ML VIAL ONE (09:08)
--- NOTE | 2017-05-12 10:39 | PD.RAD ---
Post CT Procedure Prog Note Pre Procedure Diagnosis: (1) Liver mass (2) Lymph node enlargement Post Procedure Diagnosis: Procedure Date: May 12, 2017 Supervising Radiologist: Colt Melo Anesthesia: Local, Conscious Sedation Plan of Activity Patient to Unit: ROPU Patient Condition: Good See PACS Report for procedural detail/treatment Biopsy Imaging Guidance: CT, Ultrasound Biopsy Procedure: Liver, Lymph Node Specimen: Core Biopsy Findings: Left liver mass and Rt inguinal enlarged lymph node Colt Melo MD May 12, 2017 10:38
--- NOTE | 2017-05-12 10:53 | RADRPT ---
EXAM DATE/TIME: 05/12/2017 08:56 [facility] COMPARISON: No previous studies available for comparison. EXTERNAL COMPARISON: [facility], CT Abdomen and CT Chest, May 07 2017. INDICATIONS : Enlarged inguinal lymph node; right. MEDICAL HISTORY : Ovarian cysts. Gastritis. Reflux. SURGICAL HISTORY : Ovarian cysts removed. ENCOUNTER: Initial ACUITY: 1 week PAIN SCORE: 0/10 LOCATION: Right lower quadrant ORGAN: Right lymph node SPECIMENS: Six core specimen(s) submitted for pathologic evaluation. DEVICE: 18 gauge Temno needle Post procedure scanning reveals no hematoma or other complication. The possibility does exist that the tissue obtained will be non-diagnostic. If the sample is non-mike gnostic a repeat biopsy or surgical biopsy may need to be performed. TECHNIQUE: 1. Ultrasound guidance for needle biopsy. 2. Needle biopsy. The risks, benefits and alternatives to the procedure were explained and verbal and written consent w as obtained. The site was prepped in sterile fashion. Full sterile technique was used, including ca p, mask, sterile gloves and gown and a large sterile sheet. Hand hygiene and 2% chlorhexidine and/or betadine/alcohol prep was utilized per protocol for cutaneous antisepsis. The skin and subcutaneous tissues were infiltrated with local anesthetic solution. Sterile gel and sterile probe cover were u tilized for ultrasound guidance. With the patient on the ultrasound table, images were obtained. A needle was advanced into the identified target and the number of specimens as above obtained and morris bmitted for pathologic evaluation. The patient tolerated the procedure well and left the ultrasound suite in stable condition. CONCLUSION: Uncomplicated ultrasound guided needle biopsy of an enlarged right inguinal lymph node.. Colt Melo MD on May 12, 2017 at 10:50 Board Certified Radiologist. This report was verified electronically.
--- NOTE | 2017-05-12 10:54 | RADRPT ---
EXAM DATE/TIME: 05/12/2017 09:22 [facility] COMPARISON: No previous studies available for comparison. INDICATIONS : Liver mass. SEDATION TIME: 45 minutes BIOPSY SITE: Left MEDICATION(S): 1.) 5 mg midazolam (Versed) IV 2.) 250 mcg fentanyl (Sublimaze) IV DEVICE(S): 1.) 18 gauge Temno core biopsy needle MEDICAL HISTORY : None. SURGICAL HISTORY : None. ENCOUNTER: Initial ACUITY: 1 day PAIN SCORE: 0/10 LOCATION: Left A total of three core specimen(s) were obtained and sent to the laboratory for pathologic evaluation. PROCEDURE: 1. CT guided liver biopsy. 2. Conscious sedation with continuous EKG and oximetry monitoring. 3. EKG and oximetry remained stable throughout the procedure. Prior to the procedure informed consent was obtained. Any appropriate prior imaging studies were rev iewed. Using automated exposure control and adjustment of the mA and/or kV according to patient size, radiat ion dose was kept as low as reasonably achievable to obtain optimal diagnostic quality images. DICOM format image data is available electronically for review and comparison. The site was prepped in a sterile fashion. Full sterile technique was used, including cap, mask, andrea rile gloves and gown and a large sterile sheet. Hand hygiene and 2% chlorhexidine and/or betadine/al cohol prep was utilized per protocol for cutaneous antisepsis. The skin and subcutaneous tissues wer e infiltrated with local anesthetic solution. With CT guidance the previously identified target was localized. Biopsy was performed using the presc ribed needle as above. Adequate hemostasis was obtained with compression at the puncture site. Follow-up CT scan reveals no hemorrhage. The patient tolerated the procedure well and there were no complications. The patient was returned to the Radiology Outpatient Unit in stable condition. CONCLUSION: Uncomplicated CT guided biopsy of a left hepatic mass. Colt Melo MD on May 12, 2017 at 10:51 Board Certified Radiologist. This report was verified electronically.
[2017-05-12] MEDS ORDERED: PILL SPLITTER OTHER PRN (12:30)
[2017-05-12] MEDS ORDERED: HYDROmorphone HCL 2 MG TAB PO PRN (12:30)
[2017-05-12] MEDS ORDERED: ACETAMINOPHEN 325 MG TAB PO ONE ×2 (13:30→14:00)
== END 2017-05-12 14:30 | disposition home or self-care (01) ==
LOC: HRAD 07:42 → HRIP 07:43 → HRAD 14:30
PROVIDERS: ATTEND Family Medicine
DX: R16.0 Hepatomegaly, not elsewhere classified (principal); R59.0 Localized enlarged lymph nodes
CPT/HCPCS: 38505; 47000; 76942; 77012; 88305; 88307; 88313; 88341; 88342; C1729; J1200; J2250; J3010; J7030

== ENCOUNTER 2017-05-12 16:21 | Inpatient (IN) | payer OTHER ==
[~2017-05-12] VITALS: Ht 180.3 cm; Wt 59.4 kg
[~2017-05-12 16:21] MED LIST changes: +CALG500 PO; +FERR325T18 PO; +FISHCAP4 PO; +HYDR50TA94 PO; +LEVO2.5S4 PO; +MAGN250T11 PO; +MELO7.5T27 PO; +RANI150T PO; +SACC1CAP3 PO; +VITA500T4 PO
[2017-05-12 16:36] VITALS: BP 90/54; PULSE 90; RESP 18; TEMP 98.2; O2SAT 100
[2017-05-12] MEDS ORDERED: SODIUM CHLOR 0.9% 1000 ML INJ 1,000 ML IV SCH (17:04)
[2017-05-12] MEDS ORDERED: SODIUM CHLORIDE 0.9% FLUSH 10 ML FLUSH IV FLUSH PRN ×2 (17:15→21:30)
--- NOTE | 2017-05-12 17:18 | PD ---
HPI Chief Complaint: Medical Clearance Time Seen by Provider: 16:50 Travel History International Travel<30 days: No Contact w/Intl Traveler<30days: No Traveled to known affect area: No History of Present Illness HPI 37 YO F presents to the ED for evaluation of multiple medical complaints. She endorses intermittent dizziness. She states that she woke up around 530am and had an oral temp of 103. She states that she also experienced stinging pain in the tailbone. No known injury. She complains of stinging pruritus of the back. She complains of left hip pain without trauma. She complains of intermittent right galvin pain which she states is "in the bone." She states that she has lost 20 pounds since March. She endorses night sweats for an unknown period of time. She endorses 3 week history of nonproductive cough. She denies CP, SOB , palpitations. She endorses chronic constipation,one bowel movement a week " for my lifetime." States her stools have been dark lately. She denies anorexia , N/V,abdominal pain, diarrhea. She denies risk of , states that LMP was " about a month ago." She is a current smoker. She endorse occasionally snorting cocaine. She endorses occasional alcohol use. She denies history of IVDA. She states that she had CT guided biopsies of a liver mass and a right inguinal lymph node this AM, was afebrile at that time. She was discharged from the procedure around 3pm today. She complains of right inguinal pain at the needle insertion site of the right inguinal region. She states that her PCP called her and told her to come to the ED for "low hemoglobin and problems with the biopsies." She is followed by Dr. Soriano. [facility] Past Medical History Anxiety: Yes Depression: Yes Cancer: No Cardiovascular Problems: No Chemotherapy: No Diminished Hearing: No Endocrine: No Gastrointestinal Disorders: Yes Genitourinary: No Immune Disorder: No Musculoskeletal: No Neurologic: No Psychiatric: Yes Reproductive: No Respiratory: No Radiation Therapy: No : 1 Miscarriage: 1 Ovarian Cysts: Yes (CYSTS REMOVED 2003) Past Surgical History Abdominal Surgery: Yes (ESOPHAGEAL STRETCH ) Gynecologic Surgery: Yes (OVARIAN CYST 2003) Other Surgery: Yes (BILATERAL OVARIAN CYST REMOVAL) Social History Alcohol Use: Yes (WEEKENDS) Tobacco Use: No (QUIT ) Substance Use: No (DENIES) Allergies-Medications (Allergen,Severity, Reaction): Coded Allergies: No Known Allergies (Verified Adverse Reaction, Unknown, 03/10/17) Reported Meds & Prescriptions Reported Meds & Active Scripts Active Reported Magnesium Oxide 250 Mg Tab 250 Mg PO DAILY Ferrous Sulfate 325 Mg (65 Mg Iron) Tablet 325 Mg PO DAILY Vitamin B-12 (Cyanocobalamin) 500 Mcg Tab 500 Mcg PO DAILY Calcium Gluconate 45 Mg Calcium (500 Mg) Tab 500 Mg PO DAILY 1 gram of salt is 93 mg elemental calcium. Fish Oil + D3 (Fish Oil-Cholecalciferol) 1,200-1,000 Mg-Unit Cap 1 Cap PO DAILY Probiotic (Saccharomyces Boulardii) 250 Mg Cap 250 Mg PO BID Xyzal (Levocetirizine Dihydrochloride) 2.5 Mg/5 Ml Solution 2.5 Mg PO DAILY Meloxicam 7.5 Mg Tab 7.5 Mg PO DAILY Hydroxyzine HCl 50 Mg Tab 50 Mg PO HS Ranitidine (Ranitidine HCl) 150 Mg Tab 150 Mg PO DAILY Review of Systems Except as stated in HPI: all other systems reviewed are Neg Physical Exam Narrative GENERAL: Well-nourished, well-developed thin, anxious white female in no acute distress. SKIN: Focused skin assessment warm/dry. No rashes noted. Tiny puncture wound in the right groin without signs of hematoma or active bleeding. Tiny puncture wound in the epigastric region with no active bleeding or signs of hematoma. HEAD: Normocephalic. EYES: No scleral icterus. No injection or drainage. NECK: Supple, trachea midline. No JVD or lymphadenopathy. CARDIOVASCULAR: Regular rate and rhythm without murmurs, gallops, or rubs. RESPIRATORY: Breath sounds clear and equal bilaterally. No accessory muscle use. GASTROINTESTINAL: Abdomen soft, non-tender, nondistended. Active bowel sounds. MUSCULOSKELETAL: No cyanosis, or edema. No tenderness to palpation over the tailbone, left hip, right hip or left galvin. BACK: Nontender without obvious deformity. No CVA tenderness. Data Data Last Documented VS Vital Signs Date Time Temp Pulse Resp B/P (MAP) Pulse Ox O2 Delivery O2 Flow Rate FiO2 05/12/17 17:30 98 05/12/17 16:36 98.2 90 18 90/54 (66) Orders Orders Complete Blood Count With Diff (05/12/17 17:04) Comprehensive Metabolic Panel (05/12/17 17:04) Prothrombin Time / Inr (Pt) (05/12/17 17:04) Act Partial Throm Time (Ptt) (05/12/17 17:04) Urinalysis - C+S If Indicated (05/12/17 17:04) Iv Access Insert/Monitor (05/12/17 17:04) Ecg Monitoring (05/12/17 17:04) Oximetry (05/12/17 17:04) Sodium Chlor 0.9% 1000 Ml Inj (Ns 1000 M (05/12/17 17:04) Sodium Chloride 0.9% Flush (Ns Flush) (05/12/17 17:15) Ed Urine Pregnancytest Poc (05/12/17 17:04) Drug Screen, Random Urine (05/12/17 17:04) Type And Screen (05/12/17 17:04) Hydroxyzine Pamoate (Vistaril) (05/12/17 17:15) Alcohol (Ethanol) (05/12/17 17:08) Morphine Inj (Morphine Inj) (05/12/17 18:45) Ondansetron Inj (Zofran Inj) (05/12/17 18:45) Hip, Uni(Ap&Lat) W Ap Pelvis (05/12/17 18:54) Blood Product Administration (05/12/17 18:56) Sodium Chlor 0.9% 250 Ml Inj (Ns 250 Ml (05/12/17 19:00) Diphenhydramine (Benadryl) (05/12/17 19:00) Acetaminophen (Tylenol) (05/12/17 19:00) Red Blood Cells (Rbc) (05/12/17 18:56) Admit Order (Ed Use Only) (05/12/17 19:46) Vital Signs (Adult) Q4H (05/12/17 19:46) Activity Oob With Assistance (05/12/17 19:46) Notify Dr: Other (05/12/17 19:46) Diet Regular Basic (05/12/17 Dinner) Labs Laboratory Tests Test 05/12/17 17:25 White Blood Count 11.6 TH/MM3 Red Blood Count 3.04 MIL/MM3 Hemoglobin 7.4 GM/DL Hematocrit 22.9 % Mean Corpuscular Volume 75.4 FL Mean Corpuscular Hemoglobin 24.4 PG Mean Corpuscular Hemoglobin Concent 32.4 % Red Cell Distribution Width 19.1 % Platelet Count 625 TH/MM3 Mean Platelet Volume 6.7 FL Neutrophils (%) (Auto) 85.9 % Lymphocytes (%) (Auto) 5.9 % Monocytes (%) (Auto) 7.2 % Eosinophils (%) (Auto) 0.7 % Basophils (%) (Auto) 0.3 % Neutrophils # (Auto) 10.0 TH/MM3 Lymphocytes # (Auto) 0.7 TH/MM3 Monocytes # (Auto) 0.8 TH/MM3 Eosinophils # (Auto) 0.1 TH/MM3 Basophils # (Auto) 0.0 TH/MM3 CBC Comment DIFF FINAL Differential Comment Prothrombin Time 10.6 SEC Prothromb Time International Ratio 1.0 RATIO Activated Partial Thromboplast Time 45.5 SEC Urine Color LIGHT-YELLOW Urine Turbidity CLEAR Urine pH 6.0 Urine Specific [place] 1.001 Urine Protein NEG mg/dL Urine Glucose (UA) NEG mg/dL Urine Ketones NEG mg/dL Urine Occult Blood NEG Urine Nitrite NEG Urine Bilirubin NEG Urine Urobilinogen LESS THAN 2.0 MG/DL Urine Leukocyte Esterase NEG Urine WBC LESS THAN 1 /hpf Microscopic Urinalysis Comment CULT NOT INDICATED Blood Urea Nitrogen 9 MG/DL Creatinine 0.79 MG/DL Random Glucose 67 MG/DL Total Protein 8.5 GM/DL Albumin 2.8 GM/DL Calcium Level 8.9 MG/DL Alkaline Phosphatase 220 U/L Aspartate Amino Transf (AST/SGOT) 21 U/L Alanine Aminotransferase (ALT/SGPT) 26 U/L Total Bilirubin 0.4 MG/DL Sodium Level 137 MEQ/L Potassium Level 3.4 MEQ/L Chloride Level 101 MEQ/L Carbon Dioxide Level 27.4 MEQ/L Anion Gap 9 MEQ/L Estimat Glomerular Filtration Rate 81 ML/MIN Ethyl Alcohol Level LESS THAN 3 MG/DL MDM Medical Decision Making Medical Screen Exam Complete: Yes Emergency Medical Condition: Yes Differential Diagnosis Symptomatically anemia versus GI bleed versus musculoskeletal pain versus metabolic derangement versus other Narrative Course 37-year-old female presents to the ED for evaluation of intermittent dizziness, nights sweats, bone pain, pruritus weight loss, dark stools. She had CT guided biopsies of a liver mass and right inguinal lymph nodes this a.m. On presentation she complains of pain in the right groin needle insertion site. She states that her PCPs office called and told her to come to the ED for low hemoglobin. She is followed by Dr. Soriano. Vitals reviewed, BP 90/54 on presentation. Physical exam reveals no focal neuro deficits. Chest CT AB. Abdomen soft and nontender. No evidence of hematoma or active bleeding at the CT biopsy sites. IV was established. Patient was administered 50 mg Vistaril and 1 L normal saline. She complained of pain and was administered 4 mg morphine and 4 mg Zofran. I spoke with Dr. Soriano who states that she has seen the patient once. She states that the patient's hemoglobin has dropped from 8 to 7 in 1 week. She states that she sent the patient for biopsies and is suspicious of lymphoma. CBC: WBC 11.6, hemoglobin 7.4. Hematocrit 22.9. Platelets 625. INR 1.0. CMP: BUN 9. Creatinine 0.79. ER impression test: Negative. UA: No culture indicated. Alcohol less than 3. Hip and pelvis x-ray: Negative evaluation of the left hip per radiology read. I discussed the results of the workup with the patient as well as my recommendation for transfusion and observation. Patient is agreeable to this plan. 2 units packed red blood cells to be administered pending type and screen. I spoke with Dr. Bains who agrees to accept the patient to the medicine service. Please see medicine notes for disposition. [facility] Point of Care Internal Pos. & Neg. Controls: Passed Fecal Specimen Occult Blood: Positive Comment Faintly positive. Tina Mcleod May 12, 2017 17:18
[2017-05-12 17:30] VITALS: O2SAT 98
[2017-05-12 17:42] LABS: BILIRUBIN, URINE NEG (NEG); BLOOD, URINE NEG (NEG); GLUCOSE,URINE NEG (NEG); KETONE, URINE NEG (NEG); NITRITE,URINE NEG (NEG); URINE COLOR LIGHT-YELLOW (YELLW/STRAW); URINE LEUKOCYTE ESTERASE NEG (NEG)
[2017-05-12 17:49] LABS: BASOPHIL % 0.3 % (0.0-2.0); EOSINOPHIL # 0.1 TH/MM3 (0-0.4); EOSINOPHIL % 0.7 % (0.0-4.0); HEMATOCRIT 22.9 % (35.0-46.0); HEMOGLOBIN 7.4 GM/DL (11.6-15.3); LYMPH % 5.9 % (9.0-44.0); LYMPHOCYTE # 0.7 TH/MM3 (1.0-4.8); MEAN CELL VOLUME 75.4 FL (80.0-100.0); MEAN CORPUSCULAR HEMOGLOBIN 24.4 PG (27.0-34.0); MEAN CORPUSCULAR HGB CONC 32.4 % (32.0-36.0); MEAN PLATELET VOLUME 6.7 FL (7.0-11.0); MONO % 7.2 % (0.0-8.0); MONOCYTE # 0.8 TH/MM3 (0-0.9); NEUT % 85.9 % (16.0-70.0); PLATELET COUNT 625 TH/MM3 (150-450); RED BLOOD COUNT 3.04 MIL/MM3 (4.00-5.30); RED CELL DISTRIBUTION WIDTH 19.1 % (11.6-17.2); WHITE BLOOD COUNT 11.6 TH/MM3 (4.0-11.0)
[2017-05-12 18:01] LABS: PROTHROMBIN TIME - PATIENT 10.6 SEC (9.8-11.6)
[2017-05-12 18:03] LABS: ALBUMIN 2.8 GM/DL (3.4-5.0); AST (GOT) 21 U/L (15-37); BICARBONATE 27.4 MEQ/L (21.0-32.0); BLOOD UREA NITROGEN 9 MG/DL (7-18); CALCIUM 8.9 MG/DL (8.5-10.1); CHLORIDE 101 MEQ/L (98-107); CREATININE 0.79 MG/DL (0.50-1.00); GLOMERULAR FILTRATION RATE 81 ML/MIN (>89); GLUCOSE,RANDOM 67 MG/DL (74-106); SODIUM (NA) 137 MEQ/L (136-145)
[2017-05-12 18:07] LABS: ALKALINE PHOSPHATASE 220 U/L (45-117); ALT (GPT) 26 U/L (10-53); TOTAL BILIRUBIN ADULT 0.4 MG/DL (0.2-1.0); TOTAL PROTEIN 8.5 GM/DL (6.4-8.2)
[2017-05-12] MEDS ORDERED: MORPHINE SULFATE 4 MG/ML INJ IV PUSH ONE (18:45)
[2017-05-12] MEDS ORDERED: ONDANSETRON HCL 4 MG/2 ML VIAL IV PUSH ONE (18:45)
[2017-05-12] MEDS ORDERED: SODIUM CHLOR 0.9% 250 ML INJ 250 ML IV ONE (19:00)
[2017-05-12] MEDS ORDERED: diphenhydrAMINE HCL 25 MG CAP PO ONE (19:00)
[2017-05-12] MEDS ORDERED: ACETAMINOPHEN 325 MG TAB PO ONE (19:00)
--- NOTE | 2017-05-12 19:32 | RADRPT ---
EXAM DATE/TIME: 05/12/2017 19:11 [facility] COMPARISON: No previous studies available for comparison. INDICATIONS : Patient complains of left hip pain. No known injury. MEDICAL HISTORY : None. SURGICAL HISTORY : None. ENCOUNTER: Initial ACUITY: 1 day PAIN SCORE: 5/10 LOCATION: Left Hip FINDINGS: Examination of the left hip was performed with AP Pelvis. The primary and secondary trabecular patte rn of the femoral neck is intact. The hip joint is of normal width without significant sclerosis or bony hypertrophy. The acetabulum is grossly intact. Multiple particles of stool within the adnexa c ontrast is present in the left colon and sigmoid. CONCLUSION: Negative evaluation of the left hip. Amrit Machado MD on May 12, 2017 at 19:30 Board Certified Radiologist. This report was verified electronically.
[2017-05-12 20:01] VITALS: BP 95/52; PULSE 91; RESP 16; O2SAT 99
[2017-05-12] MEDS ORDERED: ACETAMINOPHEN/HYDROcodone 325 MG/5 MG TAB PO ONE (20:45)
[2017-05-12] MEDS ORDERED: MORPHINE SULFATE 2 MG/ML INJ IV PUSH ONE (20:45)
[2017-05-12 20:55] VITALS: BP 104/62; PULSE 100; RESP 16; TEMP 98.7; O2SAT 99
--- NOTE | 2017-05-12 21:17 | HHI.HP ---
HPI Service [facility] Hospitalists Primary Care Physician Isabel Soriano M.D. Admission Diagnosis symptomatic anemia Chief Complaint: weakness s/p liver bx with anemia Travel History International Travel<30 Days: No Contact w/Intl Traveler <30 Da: No Traveled to Known Affected Are: No History of Present Illness 37 YO F presents to the ED for evaluation of multiple medical complaints. She endorses intermittent dizziness. She states that she woke up around 530am and had an oral temp of 103. She states that she also experienced stinging pain in the tailbone. No known injury. She complains of stinging pruritus of the back. She complains of left hip pain without trauma. She complains of intermittent right galvin pain which she states is "in the bone." She states that she has lost 20 pounds since March. She endorses night sweats for an unknown period of time. She endorses 3 week history of nonproductive cough. She denies CP, SOB , palpitations. She endorses chronic constipation,one bowel movement a week " for my lifetime." States her stools have been dark lately. She denies anorexia , N/V,abdominal pain, diarrhea. She denies risk of , states that LMP was " about a month ago." She is a current smoker. She endorse occasionally snorting cocaine. She endorses occasional alcohol use. She denies history of IVDA. She states that she had CT guided biopsies of a liver mass and a right inguinal lymph node this AM, was afebrile at that time. She was discharged from the procedure around 3pm today. She complains of right inguinal pain at the needle insertion site of the right inguinal region. She states that her PCP called her and told her to come to the ED for "low hemoglobin and problems with the biopsies." She is followed by Dr. Soriano. As outpatient found to have liver abnormality and rt inguinal lyph node abnormality and were biopsied today ,patient had 1 week ago hgb 8 now 7.5 and syptomatic admit for blood transfusion and further work up did have trace positive stools. [facility] Review of Systems Constitutional: COMPLAINS OF: Diaphoretic episodes, Fatigue, Fever, Weight loss , Change in appetite, Night Sweats Gastrointestinal: COMPLAINS OF: Abdominal pain, Black stools, GERD Neurologic: COMPLAINS OF: Localized weakness Past Family Social History Past Medical History recent work up for abdominal pain,liver and rt inguinal node bx,hx pneumonia Past Surgical History ovarian cyst Reported Medications Magnesium Oxide 250 Mg Tab 250 Mg PO DAILY Ferrous Sulfate 325 Mg (65 Mg Iron) Tablet 325 Mg PO DAILY Vitamin B-12 (Cyanocobalamin) 500 Mcg Tab 500 Mcg PO DAILY Calcium Gluconate 45 Mg Calcium (500 Mg) Tab 500 Mg PO DAILY 1 gram of salt is 93 mg elemental calcium. Fish Oil + D3 (Fish Oil-Cholecalciferol) 1,200-1,000 Mg-Unit Cap 1 Cap PO DAILY Probiotic (Saccharomyces Boulardii) 250 Mg Cap 250 Mg PO BID Xyzal (Levocetirizine Dihydrochloride) 2.5 Mg/5 Ml Solution 2.5 Mg PO DAILY Meloxicam 7.5 Mg Tab 7.5 Mg PO DAILY Hydroxyzine HCl 50 Mg Tab 50 Mg PO HS Ranitidine (Ranitidine HCl) 150 Mg Tab 150 Mg PO DAILY Allergies: Coded Allergies: No Known Allergies (Verified Adverse Reaction, Unknown, 03/10/17) Social History former smoker occ etoh Physical Exam Vital Signs Vital Signs Date Time Temp Pulse Resp B/P (MAP) Pulse Ox O2 Delivery O2 Flow Rate FiO2 05/12/17 20:55 98.7 100 16 104/62 99 05/12/17 20:01 91 16 95/52 (66) 99 Room Air 05/12/17 17:30 98 05/12/17 16:36 98.2 90 18 90/54 (66) 100 Physical Exam GENERAL: This is a well-nourished, well-developed patient, in no apparent distress. SKIN: No rashes, ecchymoses or lesions. Cool and dry. HEAD: Atraumatic. Normocephalic. No temporal or scalp tenderness. EYES: Pupils equal round and reactive. Extraocular motions intact. No scleral icterus. No injection or drainage. ENT: Nose without bleeding, purulent drainage or septal hematoma. Throat without erythema, tonsillar hypertrophy or exudate. Uvula midline. Airway patent. NECK: Trachea midline. No JVD or lymphadenopathy. Supple, nontender, no meningeal signs. CARDIOVASCULAR: Regular rate and rhythm without murmurs, gallops, or rubs. RESPIRATORY: Clear to auscultation. Breath sounds equal bilaterally. No wheezes , rales, or rhonchi. GASTROINTESTINAL: Abdomen soft, mild tender, nondistended. No hepato- splenomegaly, or palpable masses. No guarding.guiac trace positive MUSCULOSKELETAL: Extremities without clubbing, cyanosis, or edema. No joint tenderness, effusion, or edema noted. No calf tenderness. Negative Homans sign bilaterally. NEUROLOGICAL: Awake and alert. Cranial nerves II through XII intact. Motor and sensory grossly within normal limits. Five out of 5 muscle strength in all muscle groups. Normal speech. Laboratory Laboratory Tests Test 05/12/17 17:25 White Blood Count 11.6 Red Blood Count 3.04 Hemoglobin 7.4 Hematocrit 22.9 Mean Corpuscular Volume 75.4 Mean Corpuscular Hemoglobin 24.4 Mean Corpuscular Hemoglobin Concent 32.4 Red Cell Distribution Width 19.1 Platelet Count 625 Mean Platelet Volume 6.7 Neutrophils (%) (Auto) 85.9 Lymphocytes (%) (Auto) 5.9 Monocytes (%) (Auto) 7.2 Eosinophils (%) (Auto) 0.7 Basophils (%) (Auto) 0.3 Neutrophils # (Auto) 10.0 Lymphocytes # (Auto) 0.7 Monocytes # (Auto) 0.8 Eosinophils # (Auto) 0.1 Basophils # (Auto) 0.0 CBC Comment DIFF FINAL Differential Comment Prothrombin Time 10.6 Prothromb Time International Ratio 1.0 Activated Partial Thromboplast Time 45.5 Urine Color LIGHT-YELLOW Urine Turbidity CLEAR Urine pH 6.0 Urine Specific [place] 1.001 Urine Protein NEG Urine Glucose (UA) NEG Urine Ketones NEG Urine Occult Blood NEG Urine Nitrite NEG Urine Bilirubin NEG Urine Urobilinogen LESS THAN 2.0 Urine Leukocyte Esterase NEG Urine WBC LESS THAN 1 Microscopic Urinalysis Comment CULT NOT INDICATED Blood Urea Nitrogen 9 Creatinine 0.79 Random Glucose 67 Total Protein 8.5 Albumin 2.8 Calcium Level 8.9 Alkaline Phosphatase 220 Aspartate Amino Transf (AST/SGOT) 21 Alanine Aminotransferase (ALT/SGPT) 26 Total Bilirubin 0.4 Sodium Level 137 Potassium Level 3.4 Chloride Level 101 Carbon Dioxide Level 27.4 Anion Gap 9 Estimat Glomerular Filtration Rate 81 Ethyl Alcohol Level LESS THAN 3 Result Diagram: 05/12/17 1725 05/12/17 1725 Imaging Last 24 hours Impressions Hip and Pelvis X-Ray 05/12/17 1854 Signed Impressions: Service Date/Time: Friday, May 12, 2017 19:11 - CONCLUSION: Negative evaluation of the left hip. Amrit Machado MD Course in er had decrease blood pressure received fluid which improved blood pressure and received morphine for pain Caprini VTE Risk Assessment Caprini VTE Risk Assessment: No/Low Risk (score <= 1) Caprini Risk Assessment Model Point Value = 1 Point Value = 2 Point Value = 3 Point Value = 5 Age 41-60 Minor surgery BMI > 25 kg/m2 Swollen legs Varicose veins or History of unexplained or recurrent spontaneous Oral contraceptives or hormone replacement Sepsis (< 1 month) Serious lung disease, including pneumonia (< 1 month) Abnormal pulmonary function Acute myocardial infarction Congestive heart failure (< 1 month) History of inflammatory bowel disease Medical patient at bed rest Age 61-74 Arthroscopic surgery Major open surgery (> 45 min) Laparoscopic surgery (> 45 min) Malignancy Confined to bed (> 72 hours) Immobilizing plaster cast Central venous access Age >= 75 History of VTE Family history of VTE Factor V Leiden Prothrombin [id number] Lupus anticoagulant Anticardiolipin antibodies Elevated serum homocysteine Heparin-induced thrombocytopenia Other congenital or acquired thrombophilia Stroke (< 1 month) Elective arthroplasty Hip, pelvis, or leg fracture Acute spinal cord injury (< 1 month) Prophylaxis Regimen Total Risk Factor Score Risk Level Prophylaxis Regimen 0-1 Low Early ambulation 2 Moderate Order ONE of the following: *Sequential Compression Device (SCD) *Heparin 5000 units SQ BID 3-4 Higher Order ONE of the following medications: *Heparin 5000 units SQ TID *Enoxaparin/Lovenox 40 mg SQ daily (WT < 150 kg, CrCl > 30 mL/min) *Enoxaparin/Lovenox 30 mg SQ daily (WT < 150 kg, CrCl > 10-29 mL/min) *Enoxaparin/Lovenox 30 mg SQ BID (WT < 150 kg, CrCl > 30 mL/min) AND/OR *Sequential Compression Device (SCD) 5 or more Highest Order ONE of the following medications: *Heparin 5000 units SQ TID (Preferred with Epidurals) *Enoxaparin/Lovenox 40 mg SQ daily (WT < 150 kg, CrCl > 30 mL/min) *Enoxaparin/Lovenox 30 mg SQ daily (WT < 150 kg, CrCl > 10-29 mL/min) *Enoxaparin/Lovenox 30 mg SQ BID (WT < 150 kg, CrCl > 30 mL/min) AND *Sequential Compression Device (SCD) Assessment and Plan Problem List: (1) Symptomatic anemia ICD Codes: D64.9 - Anemia, unspecified Plan: will transfuse 2 units blood follow up labs GI consult had guiac positive stools (2) Liver mass ICD Codes: R16.0 - Hepatomegaly, not elsewhere classified Plan: bx pending (3) Lymph node enlargement ICD Codes: R59.9 - Enlarged lymph nodes, unspecified Plan: bx pending Assessment and Plan further plqan as per workup and results of biopsy Code Status full Discussed Condition With patient Jose Flores MD May 12, 2017 21:17
[2017-05-12] MEDS ORDERED: NALOXONE HCL 0.4 MG/ML AMP IV PUSH PRN (21:30)
[2017-05-12] MEDS ORDERED: SENNOSIDES 8.6 MG TAB PO PRN (21:30)
[2017-05-12] MEDS ORDERED: ONDANSETRON HCL 4 MG/2 ML VIAL IVP PRN (21:30)
[2017-05-12] MEDS ORDERED: BISACODYL 10 MG SUPP RECTAL PRN (21:30)
[2017-05-12 21:37] VITALS: BP 91/54; PULSE 94; RESP 16; TEMP 98.5; O2SAT 97
[2017-05-12] MEDS: hydrOXYzine HCL 10 MG TAB PO PRN (22:28)
[2017-05-12 23:54] VITALS: BP 93/53; PULSE 94; RESP 16; TEMP 97.3; O2SAT 97
[2017-05-13] VITALS (9 sets, daily range): BP systolic 92–114; BP diastolic 53–64; PULSE 84–137; RESP 16–18; TEMP 97.6–103; O2SAT 96–100
[2017-05-13] MEDS: MORPHINE SULFATE 2 MG/ML INJ IV PUSH PRN ×6 (00:13→21:26)
[2017-05-13] MEDS: ACETAMINOPHEN 325 MG TAB PO PRN (05:10)
[2017-05-13] MEDS: SODIUM CHLOR 0.45% 1000 ML INJ 1,000 ML IV SCH ×2 (05:44→10:37)
[2017-05-13 07:12] LABS: AUTOMATED NEUTROPHIL # 7.6 TH/MM3 (1.8-7.7); BASOPHIL % 0.2 % (0.0-2.0); EOSINOPHIL # 0.2 TH/MM3 (0-0.4); EOSINOPHIL % 1.8 % (0.0-4.0); HEMATOCRIT 26.8 % (35.0-46.0); HEMOGLOBIN 9.1 GM/DL (11.6-15.3); LYMPH % 6.5 % (9.0-44.0); LYMPHOCYTE # 0.6 TH/MM3 (1.0-4.8); MEAN CELL VOLUME 76.3 FL (80.0-100.0); MEAN PLATELET VOLUME 6.8 FL (7.0-11.0); MONO % 7.8 % (0.0-8.0); MONOCYTE # 0.7 TH/MM3 (0-0.9); NEUT % 83.7 % (16.0-70.0); PLATELET COUNT 524 TH/MM3 (150-450); RED BLOOD COUNT 3.51 MIL/MM3 (4.00-5.30); RED CELL DISTRIBUTION WIDTH 18.8 % (11.6-17.2); WHITE BLOOD COUNT 9.1 TH/MM3 (4.0-11.0)
[2017-05-13 07:27] LABS: ALBUMIN 2.3 GM/DL (3.4-5.0); ALT (GPT) 19 U/L (10-53); AST (GOT) 20 U/L (15-37); BICARBONATE 24.9 MEQ/L (21.0-32.0); BLOOD UREA NITROGEN 9 MG/DL (7-18); CALCIUM 8.1 MG/DL (8.5-10.1); CHLORIDE 102 MEQ/L (98-107); CREATININE 0.62 MG/DL (0.50-1.00); GLOMERULAR FILTRATION RATE 107 ML/MIN (>89); GLUCOSE,RANDOM 80 MG/DL (74-106); SODIUM (NA) 136 MEQ/L (136-145)
[2017-05-13 07:29] LABS: ALKALINE PHOSPHATASE 167 U/L (45-117); TOTAL BILIRUBIN ADULT 1.2 MG/DL (0.2-1.0); TOTAL PROTEIN 7.1 GM/DL (6.4-8.2)
[2017-05-13] MEDS: hydrOXYzine HCL 10 MG TAB PO PRN ×2 (07:38→23:57)
--- NOTE | 2017-05-13 08:21 | HHI.PR ---
Subjective Remarks Pt reports that she had previously been diagnosed with pneumonia in 02/2017 when she was seen in the ED with a noted RLL infiltrate. She was treated with Azithromycin, Prednisone and Albuterol Inhaler She had significant weight loss since that time of approx 20lbs. She has had various other complaints over the last few months of generalized pruritus, back pain, constipation, anemia and more recently she has had fevers, night sweats, shaking chills, and a non productive cough that comes and goes. She was seen as an outpt by GI and had evaluation with EGD with dilation in 2017 for complaints of dysphagia and odynophagia, which noted gastritis/superficial ulceration of the antrum, esophagitis in the distal esophagus, and food bolus in the stomach. She was supposed to have an outpt colonoscopy which has not been performed yet for evaluation of anemia. She had also had outpt CT Chest/Abd/Pelvis which noted evidence of metastatic lesions in the lungs, liver, spleen, retroperitoneal lymphadenopathy, and inguinal lymphadenopathy. She underwent biopsy of the liver and right inguinal LN yesterday. She had increased pain at the biopsy sites and fever and was called for a noted decrease in her H/H on outpt labs and recommended to come to the ED for further evaluation. She reports continued pain at the biopsy sites, pain in her back and tailbone area which is described as a burning pain She continues to have generalized pruritus Pt also spiked a fever of 103 last night. No BM in almost a week Objective Vitals Vital Signs Date Time Temp Pulse Resp B/P (MAP) Pulse Ox O2 Delivery O2 Flow Rate FiO2 05/13/17 05:55 98.7 05/13/17 05:07 103.0 05/13/17 03:43 98.3 137 16 111/63 (79) 99 05/13/17 03:06 98.4 102 16 114/64 100 05/13/17 02:33 98.8 90 16 114/60 100 05/12/17 23:54 97.3 94 16 93/53 (66) 97 05/12/17 21:37 98.5 94 16 91/54 (66) 97 05/12/17 20:55 98.7 100 16 104/62 99 05/12/17 20:01 91 16 95/52 (66) 99 Room Air 05/12/17 17:30 98 05/12/17 16:36 98.2 90 18 90/54 (66) 100 05/13/17 05/13/17 05/14/17 15:00 23:00 07:00 Intake Total 1200 ml Balance 1200 ml Intake Oral 1200 ml # Voids 3 Result Diagram: 05/13/17 0640 05/13/17 0640 Other Results Laboratory Tests Test 05/12/17 17:25 05/13/17 06:40 White Blood Count 11.6 TH/MM3 9.1 TH/MM3 Red Blood Count 3.04 MIL/MM3 3.51 MIL/MM3 Hemoglobin 7.4 GM/DL 9.1 GM/DL Hematocrit 22.9 % 26.8 % Mean Corpuscular Volume 75.4 FL 76.3 FL Mean Corpuscular Hemoglobin 24.4 PG 26.0 PG Mean Corpuscular Hemoglobin Concent 32.4 % 34.0 % Red Cell Distribution Width 19.1 % 18.8 % Platelet Count 625 TH/MM3 524 TH/MM3 Mean Platelet Volume 6.7 FL 6.8 FL Neutrophils (%) (Auto) 85.9 % 83.7 % Lymphocytes (%) (Auto) 5.9 % 6.5 % Monocytes (%) (Auto) 7.2 % 7.8 % Eosinophils (%) (Auto) 0.7 % 1.8 % Basophils (%) (Auto) 0.3 % 0.2 % Neutrophils # (Auto) 10.0 TH/MM3 7.6 TH/MM3 Lymphocytes # (Auto) 0.7 TH/MM3 0.6 TH/MM3 Monocytes # (Auto) 0.8 TH/MM3 0.7 TH/MM3 Eosinophils # (Auto) 0.1 TH/MM3 0.2 TH/MM3 Basophils # (Auto) 0.0 TH/MM3 0.0 TH/MM3 CBC Comment DIFF FINAL DIFF FINAL Differential Comment Prothrombin Time 10.6 SEC Prothromb Time International Ratio 1.0 RATIO Activated Partial Thromboplast Time 45.5 SEC Urine Color LIGHT-YELLOW Urine Turbidity CLEAR Urine pH 6.0 Urine Specific [place] 1.001 Urine Protein NEG mg/dL Urine Glucose (UA) NEG mg/dL Urine Ketones NEG mg/dL Urine Occult Blood NEG Urine Nitrite NEG Urine Bilirubin NEG Urine Urobilinogen LESS THAN 2.0 MG/DL Urine Leukocyte Esterase NEG Urine WBC LESS THAN 1 /hpf Microscopic Urinalysis Comment CULT NOT INDICATED Blood Urea Nitrogen 9 MG/DL 9 MG/DL Creatinine 0.79 MG/DL 0.62 MG/DL Random Glucose 67 MG/DL 80 MG/DL Total Protein 8.5 GM/DL 7.1 GM/DL Albumin 2.8 GM/DL 2.3 GM/DL Calcium Level 8.9 MG/DL 8.1 MG/DL Alkaline Phosphatase 220 U/L 167 U/L Aspartate Amino Transf (AST/SGOT) 21 U/L 20 U/L Alanine Aminotransferase (ALT/SGPT) 26 U/L 19 U/L Total Bilirubin 0.4 MG/DL 1.2 MG/DL Sodium Level 137 MEQ/L 136 MEQ/L Potassium Level 3.4 MEQ/L 3.6 MEQ/L Chloride Level 101 MEQ/L 102 MEQ/L Carbon Dioxide Level 27.4 MEQ/L 24.9 MEQ/L Anion Gap 9 MEQ/L 9 MEQ/L Estimat Glomerular Filtration Rate 81 ML/MIN 107 ML/MIN Urine Opiates Screen NEG Urine Barbiturates Screen NEG Urine Amphetamines Screen NEG Urine Benzodiazepines Screen POS Urine Cocaine Screen NEG Urine Cannabinoids Screen NEG Ethyl Alcohol Level LESS THAN 3 MG/DL Imaging Last 24 hours Impressions Hip and Pelvis X-Ray 05/12/17 5470 Signed Impressions: Service Date/Time: Friday, May 12, 2017 19:11 - CONCLUSION: Negative evaluation of the left hip. Amrit Machado MD Outpt Chest CT W/W/O IV contrast (05/07/17): - Innumerable masses scattered throughout the lungs. Numerous lymph nodes throughout the mediastinum and both hilar regions Outpt CT Abd/pelvis W/W/O contrast (05/07/17): - There is widespread metastatic disease throughout the spleen, the liver and the retroperitoneum. Lymphoma most likely diagnosis versus conceivably melanoma or breast cancer. - Indeterminate sclerotic lesion in T12. - Liver with 2.7cm low-density lesion in the lateral segment of the left lobe of the liver. At least 5 other low-density lesions scattered throughout the liver concerning for metastatic disease. - Spleen is markedly heterogenous appearance with multiple masses. - Retroperitoneum with 2.2cm left periaortic lymph node below the left renal vein. At least 3 other retroperitoneal lymph nodes are present. - 3.0 x 1.6cm right inguinal lymph node. Some internal obturator lymphadenopathy on the right as well. Objective Remarks General: Thin female in no acute distress Chest: CTA Cardiac: Regular Abd: +BS, soft nondistended, tenderness to palpation over the biopsy sites but no evidence of drainage or erythema or swelling at the sites Ext: No edema A/P Problem List: (1) Symptomatic anemia ICD Codes: D64.9 - Anemia, unspecified Plan: - Pt is a 37 y/o female who was sent to the ED by her PCP for worsening anemia and leukocytosis on outpt labs. - Pt reported various complaints at the time of admission, including weight loss (Approx 20lbs in the last 3 months), intermittent dizziness, fevers, "bone pain", night sweats. - Pts outpt H/H has decreased to Hgb 7.4/Hct 22.8, MCV 77, MCH 25 on 05/11/17 and was recommended to report to the ED for further eval. - Pt had previously reported intermittent black stools and was noted to be Hemoccult positive in the ED. - She was seen by GI in 04/2016 and had an EGD with dilation for complaints of dysphagia and odynophagia. The EGD noted gastritis/superficial ulceration of the antrum, esophagitis in the distal esophagus, and food bolus in the stomach. - Pt was planned for outpt evaluation with colonoscopy which had not been performed yet. - Pt has family hx of colon cancer, father. - She has received 2 units of PRBCs at admission with H/H improving to Hgb 9.1/ Hct 26.9 (05/13/17) - GI has been consulted - Monitor H/H - PPI - Supportive care (2) Fever ICD Codes: R50.9 - Fever, unspecified Status: Acute Plan: - Pt has had reported night sweats and was noted to have fevers prior to admission, Tmax 103 degrees - Blood cultures taken in the ED are pending - UA was negative - Tylenol PRN (3) Weight loss, unintentional ICD Codes: R63.4 - Abnormal weight loss Plan: - Pt had reported unintentional weight loss ~20lbs since 03/2017, night sweats and had outpt CT Chest/Abd/Pelvis on 05/07/17 - Outpt Chest CT W/W/O IV contrast (05/07/17): - Innumerable masses scattered throughout the lungs. Numerous lymph nodes throughout the mediastinum and both hilar regions - Outpt CT Abd/pelvis W/W/O contrast (05/07/17): - There is widespread metastatic disease throughout the spleen, the liver and the retroperitoneum. Lymphoma most likely diagnosis versus conceivably melanoma or breast cancer. - Indeterminate sclerotic lesion in T12. - Liver with 2.7cm low-density lesion in the lateral segment of the left lobe of the liver. At least 5 other low-density lesions scattered throughout the liver concerning for metastatic disease. - Spleen is markedly heterogenous appearance with multiple masses. - Retroperitoneum with 2.2cm left periaortic lymph node below the left renal vein. At least 3 other retroperitoneal lymph nodes are present. - 3.0 x 1.6cm right inguinal lymph node. Some internal obturator lymphadenopathy on the right as well. - Pt underwent CT guided liver biopsy and US guided LN biopsy on 05/12/17. Pathology is pending. - Check AFP, CA-19-9, CEA, Ca 125 - Check TSH, Free T4 - She denies ever having had a mammogram previously, no reported obvious breast masses. She does not perform self-breast exams regularly - She does get pap smears annually and reports hx of an abnormal PAP 3 years ago and underwent a LEEP procedure at that time. Her last PAP was in 2017 and she reports that this was normal. - She has family hx of colon cancer, father diagnosed in his early 70s (4) Liver mass ICD Codes: R16.0 - Hepatomegaly, not elsewhere classified Plan: - See above - Pathology pending. (5) Lymph node enlargement ICD Codes: R59.9 - Enlarged lymph nodes, unspecified Plan: - See above. - Pathology pending Assessment and Plan Patient examined. Assessment and plan formulated with Devi Gallego PA-C. I agree with the above. concern for metastatic dz process. unknown primary. outpt ct imaging reviewed. f/u liver and ln bx results. call path lab and hopefully prelim tomorrow. f/u spine imaging as she has alot of complaints she is refusing colonoscopy prep. try to get basal pain meds started. bp will be limiting. Devi Gallego May 13, 2017 08:21 Rodrigo Padgett MD May 13, 2017 16:18
[2017-05-13] MEDS: SODIUM CHLORIDE 0.9% FLUSH 10 ML FLUSH IV FLUSH SCH ×2 (09:00→20:03)
[2017-05-13] MEDS: DOCUSATE SODIUM 50 MG/SENNA 8.6 MG TAB PO SCH ×2 (09:14→20:02)
--- NOTE | 2017-05-13 10:31 | PD.CONS ---
HPI History of Present Illness This is a 37 year old female who presented to ER after being told by PCP for abnormal labwork. She is s/p liver mass and inguinal lymph node biopsy 05/12/17. GI has been consulted for anemia, poss liver mass, heme pos stool. She was scheduled to have EGD and colonoscopy at [facility] but had fever of 104 and now has appt 05/25/17 for those procedures. Admits intermittently dark stool. she takes iron. She admits intermittent lower abd pain associated with constipation. She has lost 20 lbs in 3-4 months. The weight loss started February when she was sick with PNA. Denies solomon blood in stool, n/v, diarrhea. She had EGD and dilatation 04/20/16 and finding of food bolus, reflux esophagitis, gastritis. denies hx liver problems, GIB. Not on blood thinners. Denies frequent NSAID use. Admits occasional consumption ETOH but in large amounts when she does drink. She had CT done at that found lesions liver, lungs, spine. (Bekah Cannon) PFSH Past Medical History migraines Past Surgical History liver bx, lymph node bx ovarian cyst removal (Bekah Cannon) Coded Allergies: No Known Allergies (Verified Adverse Reaction, Unknown, 03/10/17) Family History DM Social History + ETOH, heavy at times former smoker, quit 3 y ago denies illicit drug use currently, per EMR has admitted to cocaine use denies IVDU (Bekah Cannon) Review of Systems Constitutional: COMPLAINS OF: Fever, Weight loss Endocrine: DENIES: Polydipsia Eyes: DENIES: Blurred vision Ears, nose, mouth, throat: DENIES: Hearing loss Respiratory: DENIES: Hemoptysis Cardiovascular: DENIES: Chest pain Gastrointestinal: COMPLAINS OF: Abdominal pain, Black stools, Constipation, DENIES: Bloody stools, Diarrhea, Nausea, Vomiting, Difficulty Swallowing Genitourinary: DENIES: Hematuria Musculoskeletal: DENIES: Joint Swelling Integumentary: DENIES: Abnormal pigmentation Hematologic/lymphatic: COMPLAINS OF: Bruising Immunologic/allergic: DENIES: Eczema Neurologic: DENIES: Abnormal gait Psychiatric: DENIES: Confusion (Bekah Cannon) GI Exam Vitals I&O Vital Signs Date Time Temp Pulse Resp B/P (MAP) Pulse Ox O2 Delivery O2 Flow Rate FiO2 05/13/17 08:22 97.6 84 18 100/57 (71) 98 05/13/17 05:55 98.7 05/13/17 05:07 103.0 05/13/17 03:43 98.3 137 16 111/63 (79) 99 05/13/17 03:06 98.4 102 16 114/64 100 05/13/17 02:33 98.8 90 16 114/60 100 05/12/17 23:54 97.3 94 16 93/53 (66) 97 05/12/17 21:37 98.5 94 16 91/54 (66) 97 05/12/17 20:55 98.7 100 16 104/62 99 05/12/17 20:01 91 16 95/52 (66) 99 Room Air 05/12/17 17:30 98 05/12/17 16:36 98.2 90 18 90/54 (66) 100 I/O 05/12/17 05/12/17 05/12/17 05/13/17 05/13/17 05/13/17 07:00 15:00 23:00 07:00 15:00 23:00 Intake Total 1020 ml 800 ml 1200 ml Balance 1020 ml 800 ml 1200 ml Intake Oral 1200 ml IV Total 1000 ml Packed Cells 800 ml Blood Product IV Normal Saline Flush 20 ml # Voids 3 Imaging Last Impressions Hip and Pelvis X-Ray 05/12/17 [id number] Signed Impressions: Service Date/Time: Friday, May 12, 2017 19:11 - CONCLUSION: Negative evaluation of the left hip. Amrit Machado MD Laboratory Test 05/12/17 17:25 05/13/17 06:40 White Blood Count 11.6 TH/MM3 9.1 TH/MM3 Red Blood Count 3.04 MIL/MM3 3.51 MIL/MM3 Hemoglobin 7.4 GM/DL 9.1 GM/DL Hematocrit 22.9 % 26.8 % Mean Corpuscular Volume 75.4 FL 76.3 FL Mean Corpuscular Hemoglobin 24.4 PG 26.0 PG Mean Corpuscular Hemoglobin Concent 32.4 % 34.0 % Red Cell Distribution Width 19.1 % 18.8 % Platelet Count 625 TH/MM3 524 TH/MM3 Mean Platelet Volume 6.7 FL 6.8 FL Neutrophils (%) (Auto) 85.9 % 83.7 % Lymphocytes (%) (Auto) 5.9 % 6.5 % Monocytes (%) (Auto) 7.2 % 7.8 % Eosinophils (%) (Auto) 0.7 % 1.8 % Basophils (%) (Auto) 0.3 % 0.2 % Neutrophils # (Auto) 10.0 TH/MM3 7.6 TH/MM3 Lymphocytes # (Auto) 0.7 TH/MM3 0.6 TH/MM3 Monocytes # (Auto) 0.8 TH/MM3 0.7 TH/MM3 Eosinophils # (Auto) 0.1 TH/MM3 0.2 TH/MM3 Basophils # (Auto) 0.0 TH/MM3 0.0 TH/MM3 CBC Comment DIFF FINAL DIFF FINAL Differential Comment Prothrombin Time 10.6 SEC Prothromb Time International Ratio 1.0 RATIO Activated Partial Thromboplast Time 45.5 SEC Urine Color LIGHT-YELLOW Urine Turbidity CLEAR Urine pH 6.0 Urine Specific Melba 1.001 Urine Protein NEG mg/dL Urine Glucose (UA) NEG mg/dL Urine Ketones NEG mg/dL Urine Occult Blood NEG Urine Nitrite NEG Urine Bilirubin NEG Urine Urobilinogen LESS THAN 2.0 MG/DL Urine Leukocyte Esterase NEG Urine WBC LESS THAN 1 /hpf Microscopic Urinalysis Comment CULT NOT INDICATED Blood Urea Nitrogen 9 MG/DL 9 MG/DL Creatinine 0.79 MG/DL 0.62 MG/DL Random Glucose 67 MG/DL 80 MG/DL Total Protein 8.5 GM/DL 7.1 GM/DL Albumin 2.8 GM/DL 2.3 GM/DL Calcium Level 8.9 MG/DL 8.1 MG/DL Alkaline Phosphatase 220 U/L 167 U/L Aspartate Amino Transf (AST/SGOT) 21 U/L 20 U/L Alanine Aminotransferase (ALT/SGPT) 26 U/L 19 U/L Total Bilirubin 0.4 MG/DL 1.2 MG/DL Sodium Level 137 MEQ/L 136 MEQ/L Potassium Level 3.4 MEQ/L 3.6 MEQ/L Chloride Level 101 MEQ/L 102 MEQ/L Carbon Dioxide Level 27.4 MEQ/L 24.9 MEQ/L Anion Gap 9 MEQ/L 9 MEQ/L Estimat Glomerular Filtration Rate 81 ML/MIN 107 ML/MIN Urine Opiates Screen NEG Urine Barbiturates Screen NEG Urine Amphetamines Screen NEG Urine Benzodiazepines Screen POS Urine Cocaine Screen NEG Urine Cannabinoids Screen NEG Ethyl Alcohol Level LESS THAN 3 MG/DL Date/Time Source Procedure Growth Status 05/13/17 06:40 Blood Other Aerobic Blood Culture Pending Received 05/13/17 06:40 Blood Other Anaerobic Blood Culture Pending Received Physical Examination HEENT: PERRL; normocephalic; atraumatic; no jaundice. CHEST: CTA CARDIAC: tachy ABDOMEN: Semifirm, nondistended, TTP region liver bx; no hepatosplenomegaly; bowel sounds are present in all four quadrants. EXTREMITIES: No clubbing, cyanosis, or edema. SKIN: Normal; no rash; no jaundice. POWER [employer]OV[employer] SUPERINTENDENT: No focal deficits; alert and oriented times three. (Bekah Cannon) Assessment and Plan Plan ASSESSMENT - anemia, heme pos stool - could be multifactoria, GIB vs CARLEY. microcytic. hgb 7.4 on admission, admits dark stools, on iron - abnormal imaging, liver mass - reportedly seen on CT done recently at [place], had bx yesterday. tumor markers pending PLAN - EGD and colonoscopy in am - obtain consent - clears today - NPO after midnight - mg citrate x 2 + dulcolax - monitor labs - liver w/u - further recs as case unfolds pt seen by myself and Dr Montiel and this note is on his behalf (Bekah Cannon) Physician Comments Seen and examined, plan for EGD and Colonoscopy. Thank you for the consult. (Abimael Montiel MD) Bekah Cannon May 13, 2017 10:31 Abimael Monteil MD May 14, 2017 06:08
[2017-05-13 12:35] LABS: CARCINOEMBRYONIC ANTIGEN 0.4 NG/ML (0.2-5.0)
[2017-05-13 12:46] LABS: FREE T4 1.25 NG/DL (0.76-1.46)
[2017-05-13 13:11] LABS: CA 125 10.4 U/ML (0.0-30.2)
[2017-05-13] MEDS ORDERED: ACETAMINOPHEN/HYDROcodone 325 MG/5 MG TAB PO PRN (15:15)
--- NOTE | 2017-05-13 15:40 | RADRPT ---
EXAM DATE/TIME: 05/13/2017 15:26 [facility] COMPARISON: No previous studies available for comparison. INDICATIONS : Abdominal pain, constipation. MEDICAL HISTORY : ovarian cysts, gastritis, reflux, ocarian cysts. SURGICAL HISTORY : biopsy liver, ovarian cysts removed ENCOUNTER: Initial ACUITY: 1 day PAIN SCORE: 9/10 LOCATION: Bilateral abdomen FINDINGS: Supine view of the abdomen was performed. The abdominal bowel gas pattern is normal. No definite ca lcifications overlying the kidneys.. There is some residual contrast seen within the left colon. The re is stool throughout the colon. The lung bases are grossly clear. The osseous structures are unrema rkable. CONCLUSION: Moderate stool throughout the colon. Otherwise, benign-appearing abdomen. Guy Arzola MD on May 13, 2017 at 15:37 Board Certified Radiologist. This report was verified electronically.
[2017-05-13] MEDS: LACTULOSE SYRUP 20 GM/30 ML CUP PO PRN (16:22)
[2017-05-13] MEDS ORDERED: MAGNESIUM CITRATE SOLN 300 ML BTL PO ONE ×2 (16:30→18:30)
[2017-05-13] MEDS ORDERED: GADODIAMIDE PF 287 MG/ML 10 ML VIAL (for RAD MRI) IVCONTRAST ONE (19:05)
--- NOTE | 2017-05-13 19:30 | RADRPT ---
EXAM DATE/TIME: 05/13/2017 17:55 [facility] COMPARISON: No previous studies available for comparison. INDICATIONS : Mass. Back pain. CONTRAST: 11 cc Omniscan (gadodiamide) IV MEDICAL HISTORY : None. SURGICAL HISTORY : Ovarian cyst removal. ENCOUNTER: Initial ACUITY: 3 day PAIN SCORE: 5/10 LOCATION: Back. TECHNIQUE: Multiplanar multisequence MRI of the thoracic spine was performed. FINDINGS: Vertebral body height is maintained. There are signal abnormalities in several thoracic vertebral katlyn dies including the T3, T4, and T8. At T3, there is mild T2 prolongation anteriorly with some periphe ral enhancement seen at T4, there is T2 prolongation in the posterior vertebral body with correlating contrast enhancement both in the vertebral body and right pedicle. At T8, there is no T2 prolongati on or abnormal enhancement, but there is marked T1 prolongation of the vertebral bodies. At T10-T11, there are some focal areas of fatty replacement of the marrow. The thoracic cord has normal size and signal characteristics. The conus is at the level of L1. CONCLUSION: Signal abnormalities within the T3 and T4 vertebral body and right T4 pedicle with contrast enhanceme nt. There is also T1 prolongation without contrast enhancement in the T8 vertebral body. The appear ance is nonspecific but is abnormal and suggests possible metastatic disease. Amrit Machado MD on May 13, 2017 at 19:20 Board Certified Radiologist. This report was verified electronically.
--- NOTE | 2017-05-13 19:49 | RADRPT ---
EXAM DATE/TIME: 05/13/2017 17:55 [facility] COMPARISON: No previous studies available for comparison. INDICATIONS : Mass. Back pain. CONTRAST: 11 cc Omniscan (gadodiamide) IV MEDICAL HISTORY : None. SURGICAL HISTORY : Ovarian cyst removal. ENCOUNTER: Initial ACUITY: 3 day PAIN SCORE: 6/10 LOCATION: Back. TECHNIQUE: Multiplanar multisequence MRI of the lumbar spine was performed with and without contrast. FINDINGS: The most caudal appearing lumbar vertebra is numbered as L5. Vertebral body height is maintained the vertebral bodies are in normal alignment. There is some scattered areas of T2 prolongation in the m arrow of the anterior inferior L1 and L2 vertebral body and on the postcontrast study, there is some enhancement in the anterior inferior L1 vertebral body. Interspace height is maintained. The conus is at the level of T12-L1. No abnormal areas of enhancement within the thecal sac. T12-L1: The thecal sac has a normal diameter. No evidence of disc bulge or protrusion. The neural foramina are patent bilaterally. L1-L2: The thecal sac has a normal diameter. No evidence of disc bulge or protrusion. The neural foramina are patent bilaterally. L2-L3: The thecal sac has a normal diameter. No evidence of disc bulge or protrusion. The neural foramina are patent bilaterally. L3-L4: The thecal sac has a normal diameter. No evidence of disc bulge or protrusion. The neural foramina are patent bilaterally. L4-L5: The thecal sac has a normal diameter. No evidence of disc bulge or protrusion. The neural foramina are patent bilaterally. L5-S1: The thecal sac has a normal diameter. No evidence of disc bulge or protrusion. The neural foramina are patent bilaterally. CONCLUSION: 1. No evidence of disc bulge or protrusion. 2. Triangular shaped area of T2 prolongation in the anterior inferior L1 vertebral body with correlat ing enhancement on the postcontrast study. This of uncertain significance, but would be an unusual s hape and location for a metastatic lesion. Amrit Machado MD on May 13, 2017 at 19:45 Board Certified Radiologist. This report was verified electronically.
--- NOTE | 2017-05-13 19:53 | RADRPT ---
EXAM DATE/TIME: 05/13/2017 17:55 [facility] COMPARISON: No previous studies available for comparison. INDICATIONS : Mass. Back pain. CONTRAST: 11 cc Omniscan (gadodiamide) IV MEDICAL HISTORY : None. SURGICAL HISTORY : Ovarian cyst removal. ENCOUNTER: Initial ACUITY: 3 day PAIN SCORE: 8/10 LOCATION: Back. TECHNIQUE: Multiplanar multisequence MRI examination of the sacrum/coccyx was performed. FINDINGS: There is normal alignment configuration of the sacrum and coccyx. There is a focal area of T2 prolon gation in the superior right S2 vertebral body without signal abnormality on noncontrast T1, but ther e is evidence of correlating enhancement on the postcontrast T1 scan. There is some scattered areas of T2 prolongation in the sacroiliac bilaterally with some mild discernible enhancement on the postco ntrast T1 weighted images. Moderate amount of free fluid in the right dependent pelvis. CONCLUSION: There are signal abnormalities in the superior S2 and bilateral sacroiliac with T2 prolongation and c ontrast enhancement. This suggests the possibility of metastatic lesions. Amrit Machado MD on May 13, 2017 at 19:48 Board Certified Radiologist. This report was verified electronically.
[2017-05-13] MEDS ORDERED: BISACODYL EC 5 MG TABEC PO ONE (20:00)
[2017-05-13] MEDS: MORPHINE SULFATE 15 MG CONTROLLED RELEASE TAB PO SCH (20:03)
[2017-05-14] VITALS (9 sets, daily range): BP systolic 88–117; BP diastolic 50–65; PULSE 56–129; RESP 16–22; TEMP 96.6–104; O2SAT 93–100
[2017-05-14] MEDS: MORPHINE SULFATE 2 MG/ML INJ IV PUSH PRN ×3 (02:23→11:55)
[2017-05-14] MEDS: ACETAMINOPHEN 325 MG TAB PO PRN ×3 (04:59→23:50)
[2017-05-14] MEDS: SODIUM CHLOR 0.45% 1000 ML INJ 1,000 ML IV SCH ×3 (05:42→21:45)
[2017-05-14] MEDS ORDERED: LACTATED RINGER'S 1000 ML IV PRN (06:45)
[2017-05-14] MEDS ORDERED: POVIDONE IODINE 5% (ANTISEPSIS KIT) 4 APPLICATIONS EACH NARE PRN (06:45)
[2017-05-14] MEDS ORDERED: CHLORHEXIDINE GLUCONATE 2 % 1 PACK (2 CLOTHS) TOPICAL PRN (06:45)
[2017-05-14] MEDS: DOCUSATE SODIUM 50 MG/SENNA 8.6 MG TAB PO SCH ×2 (09:00→20:43)
[2017-05-14] MEDS: SODIUM CHLORIDE 0.9% FLUSH 10 ML FLUSH IV FLUSH SCH ×2 (09:00→20:43)
--- NOTE | 2017-05-14 09:26 | GIPROC ---
[facility] [address] [facility]. [facility] [place], [id number] EGD PROCEDURE REPORT EXAM DATE: 05/14/2017 PATIENT NAME: Ruby Hood MR #: [id number] BIRTHDATE: 1980 ATTENDING: Abimael Montiel MD ORDER #: [id number] AU PAIR: Beth Chicas and Jahaira Verdugo STATUS: inpatient INDICATIONS: The patient is a 37 yr old female here for an EGD due to anemia PROCEDURE PERFORMED: EGD, diagnostic MEDICATIONS: Per Anesthesia. TOPICAL ANESTHETIC: none CONSENT: The patient understands the risks and benefits of the procedure and understands that these risks include, but are not limited to: sedation, allergic reaction, infection, perforation and/or bleeding. Alternative means of evaluation and treatment include, among others: physical exam, x-rays, and/or surgical intervention. The patient elects to proceed with this endoscopic procedure. medical equipment was checked for proper function. Hand hygiene and appropriate measures for infection prevention was taken. After the risks, benefits and alternatives of the procedure were thoroughly explained, Informed consent was verified, confirmed and timeout was successfully executed by the treatment team. The patient was anesthetized with topical anesthesia and the Pentax EG-[id number] endoscope was introduced through the mouth and advanced to the second portion of the duodenum. Retroflexion was performed and was normal The gastroscope was then slowly withdrawn and removed. The endoscopy was otherwise normal. ADVERSE EVENTS: There were no complications. IMPRESSIONS: 1. Normal endoscopy otherwise 2. Retroflexion was performed and was normal RECOMMENDATIONS: Colonoscopy PATIENT CONDITION: stable DISPOSITION: Observation REPEAT EXAM: NONE Abimael Montiel MD eSigned: Abimael Montiel MD 05/14/2017 9:26 AM cc: PATIENT NAME: Ruby Hood MR#: [id number]
[2017-05-14] MEDS: MORPHINE SULFATE 15 MG CONTROLLED RELEASE TAB PO SCH ×2 (10:23→18:31)
--- NOTE | 2017-05-14 11:23 | HHI.PR ---
Subjective Remarks Pt still having a lot of pain in her tailbone She is still having fevers, last night fever of 103 Objective Vitals Vital Signs Date Time Temp Pulse Resp B/P (MAP) Pulse Ox O2 Delivery O2 Flow Rate FiO2 05/14/17 09:31 97.9 89 18 91/46 (61) 97 05/14/17 05:43 100.4 05/14/17 04:48 104.0 56 18 90/55 (67) 97 05/14/17 00:11 98.4 98 18 108/64 (79) 100 05/13/17 22:06 99.1 89 18 101/53 (69) 98 05/13/17 16:35 98.5 96 16 107/62 (77) 100 05/13/17 12:20 98.6 106 18 92/54 (67) 96 05/14/17 05/14/17 05/15/17 15:00 23:00 07:00 Intake Total 400 ml Balance 400 ml Other 400 ml Result Diagram: 05/13/1740 05/13/17 0640 Other Results Laboratory Tests Test 05/12/17 17:25 05/13/17 06:40 05/13/17 11:20 White Blood Count 11.6 TH/MM3 9.1 TH/MM3 Red Blood Count 3.04 MIL/MM3 3.51 MIL/MM3 Hemoglobin 7.4 GM/DL 9.1 GM/DL Hematocrit 22.9 % 26.8 % Mean Corpuscular Volume 75.4 FL 76.3 FL Mean Corpuscular Hemoglobin 24.4 PG 26.0 PG Mean Corpuscular Hemoglobin Concent 32.4 % 34.0 % Red Cell Distribution Width 19.1 % 18.8 % Platelet Count 625 TH/MM3 524 TH/MM3 Mean Platelet Volume 6.7 FL 6.8 FL Neutrophils (%) (Auto) 85.9 % 83.7 % Lymphocytes (%) (Auto) 5.9 % 6.5 % Monocytes (%) (Auto) 7.2 % 7.8 % Eosinophils (%) (Auto) 0.7 % 1.8 % Basophils (%) (Auto) 0.3 % 0.2 % Neutrophils # (Auto) 10.0 TH/MM3 7.6 TH/MM3 Lymphocytes # (Auto) 0.7 TH/MM3 0.6 TH/MM3 Monocytes # (Auto) 0.8 TH/MM3 0.7 TH/MM3 Eosinophils # (Auto) 0.1 TH/MM3 0.2 TH/MM3 Basophils # (Auto) 0.0 TH/MM3 0.0 TH/MM3 CBC Comment DIFF FINAL DIFF FINAL Differential Comment Prothrombin Time 10.6 SEC Prothromb Time International Ratio 1.0 RATIO Activated Partial Thromboplast Time 45.5 SEC Urine Color LIGHT-YELLOW Urine Turbidity CLEAR Urine pH 6.0 Urine Specific [place] 1.001 Urine Protein NEG mg/dL Urine Glucose (UA) NEG mg/dL Urine Ketones NEG mg/dL Urine Occult Blood NEG Urine Nitrite NEG Urine Bilirubin NEG Urine Urobilinogen LESS THAN 2.0 MG/DL Urine Leukocyte Esterase NEG Urine WBC LESS THAN 1 /hpf Microscopic Urinalysis Comment CULT NOT INDICATED Blood Urea Nitrogen 9 MG/DL 9 MG/DL Creatinine 0.79 MG/DL 0.62 MG/DL Random Glucose 67 MG/DL 80 MG/DL Total Protein 8.5 GM/DL 7.1 GM/DL Albumin 2.8 GM/DL 2.3 GM/DL Calcium Level 8.9 MG/DL 8.1 MG/DL Alkaline Phosphatase 220 U/L 167 U/L Aspartate Amino Transf (AST/SGOT) 21 U/L 20 U/L Alanine Aminotransferase (ALT/SGPT) 26 U/L 19 U/L Total Bilirubin 0.4 MG/DL 1.2 MG/DL Sodium Level 137 MEQ/L 136 MEQ/L Potassium Level 3.4 MEQ/L 3.6 MEQ/L Chloride Level 101 MEQ/L 102 MEQ/L Carbon Dioxide Level 27.4 MEQ/L 24.9 MEQ/L Anion Gap 9 MEQ/L 9 MEQ/L Estimat Glomerular Filtration Rate 81 ML/MIN 107 ML/MIN Urine Opiates Screen NEG Urine Barbiturates Screen NEG Urine Amphetamines Screen NEG Urine Benzodiazepines Screen POS Urine Cocaine Screen NEG Urine Cannabinoids Screen NEG Ethyl Alcohol Level LESS THAN 3 MG/DL Tumor Marker Alpha Fetoprotein 0.9 NG/ML Carcinoembryonic Antigen 0.4 NG/ML CA 19-9 Antigen 7.0 U/ML CA 125 Antigen 10.4 U/ML Free Thyroxine 1.25 NG/DL Thyroid Stimulating Hormone 3rd Gen 3.720 uIU/ML Imaging Last Impressions Thoracic Spine MRI 05/13/17 0000 Signed Impressions: Service Date/Time: May 17:55 - CONCLUSION: Signal abnormalities within the T3 and T4 vertebral body and right T4 pedicle with contrast enhancement. There is also T1 prolongation without contrast enhancement in the T8 vertebral body. The appearance is nonspecific but is abnormal and suggests possible metastatic disease. Amrit Machado MD Sacrum/Coccyx MRI 05/13/17 0000 Signed Impressions: Service Date/Time: May 17:55 - CONCLUSION: There are signal abnormalities in the superior S2 and bilateral sacroiliac with T2 prolongation and contrast enhancement. This suggests the possibility of metastatic lesions. Amrit Machado MD Lumbar Spine MRI 05/13/17 0000 Signed Impressions: Service Date/Time: May 17:55 - CONCLUSION: 1. No evidence of disc bulge or protrusion. 2. Triangular shaped area of T2 prolongation in the anterior inferior L1 vertebral body with correlating enhancement on the postcontrast study. This of uncertain significance, but would be an unusual shape and location for a metastatic lesion. Amrit Machado MD Abdomen X-Ray 05/13/17 0000 Signed Impressions: Service Date/Time: May 15:26 - CONCLUSION: Moderate stool throughout the colon. Otherwise, benign-appearing abdomen. Guy Arzola MD Hip and Pelvis X-Ray 05/12/17 900 Signed Impressions: Service Date/Time: Friday, May 12, 2017 19:11 - CONCLUSION: Negative evaluation of the left hip. Amrit Machado MD Outpt Chest CT W/W/O IV contrast (05/07/17): - Innumerable masses scattered throughout the lungs. Numerous lymph nodes throughout the mediastinum and both hilar regions Outpt CT Abd/pelvis W/W/O contrast (05/07/17): - There is widespread metastatic disease throughout the spleen, the liver and the retroperitoneum. Lymphoma most likely diagnosis versus conceivably melanoma or breast cancer. - Indeterminate sclerotic lesion in T12. - Liver with 2.7cm low-density lesion in the lateral segment of the left lobe of the liver. At least 5 other low-density lesions scattered throughout the liver concerning for metastatic disease. - Spleen is markedly heterogenous appearance with multiple masses. - Retroperitoneum with 2.2cm left periaortic lymph node below the left renal vein. At least 3 other retroperitoneal lymph nodes are present. - 3.0 x 1.6cm right inguinal lymph node. Some internal obturator lymphadenopathy on the right as well. Objective Remarks General: Thin female in no acute distress Chest: CTA Cardiac: Regular Abd: +BS, soft nondistended, tenderness to palpation over the biopsy sites but no evidence of drainage or erythema or swelling at the sites Ext: No edema A/P Problem List: (1) Symptomatic anemia ICD Codes: D64.9 - Anemia, unspecified Plan: - Pt is a 37 y/o female who was sent to the ED by her PCP for worsening anemia and leukocytosis on outpt labs. - Pt reported various complaints at the time of admission, including weight loss (Approx 20lbs in the last 3 months), intermittent dizziness, fevers, "bone pain", night sweats. - Pts outpt H/H has decreased to Hgb 7.4/Hct 22.8, MCV 77, MCH 25 on 05/11/17 and was recommended to report to the ED for further eval. - Pt had previously reported intermittent black stools and was noted to be Hemoccult positive in the ED. - She was seen by GI in 04/2016 and had an EGD with dilation for complaints of dysphagia and odynophagia. The EGD noted gastritis/superficial ulceration of the antrum, esophagitis in the distal esophagus, and food bolus in the stomach. - Pt was planned for outpt evaluation with colonoscopy which had not been performed yet. - Pt has family hx of colon cancer, father. - She has received 2 units of PRBCs at admission with H/H improving to Hgb 9.1/ Hct 26.9 (05/13/17) - GI following - Pt had EGD today which was negative. - Pt refused the colonoscopy yesterday - Monitor H/H - PPI - Supportive care (2) Fever ICD Codes: R50.9 - Fever, unspecified Status: Acute Plan: - Pt has had reported night sweats and was noted to have fevers prior to admission, Tmax 103 degrees - Blood cultures taken in the ED with NGTD - UA was negative - May be tumor fever or related to malignancy, no obvious signs of infection - Tylenol PRN (3) Weight loss, unintentional ICD Codes: R63.4 - Abnormal weight loss Plan: - Pt had reported unintentional weight loss ~20lbs since 03/2017, night sweats and had outpt CT Chest/Abd/Pelvis on 05/07/17 - Outpt Chest CT W/W/O IV contrast (05/07/17): - Innumerable masses scattered throughout the lungs. Numerous lymph nodes throughout the mediastinum and both hilar regions - Outpt CT Abd/pelvis W/W/O contrast (05/07/17): - There is widespread metastatic disease throughout the spleen, the liver and the retroperitoneum. Lymphoma most likely diagnosis versus conceivably melanoma or breast cancer. - Indeterminate sclerotic lesion in T12. - Liver with 2.7cm low-density lesion in the lateral segment of the left lobe of the liver. At least 5 other low-density lesions scattered throughout the liver concerning for metastatic disease. - Spleen is markedly heterogenous appearance with multiple masses. - Retroperitoneum with 2.2cm left periaortic lymph node below the left renal vein. At least 3 other retroperitoneal lymph nodes are present. - 3.0 x 1.6cm right inguinal lymph node. Some internal obturator lymphadenopathy on the right as well. - Pt underwent CT guided liver biopsy and US guided LN biopsy on 05/12/17. Pathology is pending. - AFP, CA-19-9, CEA, Ca 125 are WNL - TSH, Free T4 are WNL - Spoke with pathology labs yesterday and will check back later today to see if there are any preliminary results - She denies ever having had a mammogram previously, no reported obvious breast masses. She does not perform self-breast exams regularly - She does get pap smears annually and reports hx of an abnormal PAP 3 years ago and underwent a LEEP procedure at that time. Her last PAP was in 2017 and she reports that this was normal. - She has family hx of colon cancer, father diagnosed in his early 70s (4) Back pain ICD Codes: M54.9 - Dorsalgia, unspecified Status: Acute Plan: - Pt has been having increased pain in her tailbone and back more recently. - Thoracic Spine MRI (05/13/17) --> Signal abnormalities within the T3 and T4 vertebral body and right T4 pedicle with contrast enhancement. There is also T1 prolongation without contrast enhancement in the T8 vertebral body. The appearance is nonspecific but is abnormal and suggests possible metastatic disease. - Lumbar Spine MRI (05/13/17) --> No evidence of disc bulge or protrusion. Triangular shaped area of T2 prolongation in the anterior inferior L1 vertebral body with correlating enhancement on the postcontrast study. This of uncertain significance, but would be an unusual shape and location for a metastatic lesion. - Sacral spine MRI (05/13/17) --> There are signal abnormalities in the superior S2 and bilateral sacroiliac with T2 prolongation and contrast enhancement. This suggests the possibility of metastatic lesions. - Started Oramorph 15mg Q12H on 05/13 but she is still having a lot of pain. We will increase frequency to Q8H on the Oramorph - IV Morphine 2mg Q3H PRN and Lebo PRN (5) Liver mass ICD Codes: R16.0 - Hepatomegaly, not elsewhere classified Plan: - See above - Pathology pending. (6) Lymph node enlargement ICD Codes: R59.9 - Enlarged lymph nodes, unspecified Plan: - See above. - Pathology pending Assessment and Plan Patient examined. Assessment and plan formulated with Devi Gallego PA-C. I agree with the above. metastatic dz process. biopsies pending. severe pain adjust pain meds and await biopsy then consult oncology. Devi Gallego May 14, 2017 11:23 Rodrigo Padgett MD May 14, 2017 12:19
[2017-05-14] MEDS ORDERED: PHENYLEPH/NS 1000 MCG/10 ML SYR IV ONE (12:00)
[2017-05-14] MEDS ORDERED: LIDOCAINE HCL 1% PF 5 ML SYRINGE OTHER ONE (12:00)
[2017-05-14] MEDS ORDERED: PROPOFOL 200 MG/20 ML AMP IV ONE (12:00)
[2017-05-14] MEDS ORDERED: MORPHINE SULFATE 2 MG/ML INJ IV PUSH STA (12:19)
[2017-05-14 13:15] LABS: AUTOMATED NEUTROPHIL # 8.3 TH/MM3 (1.8-7.7); BASOPHIL % 0.3 % (0.0-2.0); EOSINOPHIL # 0.1 TH/MM3 (0-0.4); EOSINOPHIL % 0.9 % (0.0-4.0); HEMATOCRIT 26.3 % (35.0-46.0); HEMOGLOBIN 8.9 GM/DL (11.6-15.3); LYMPH % 5.9 % (9.0-44.0); LYMPHOCYTE # 0.6 TH/MM3 (1.0-4.8); MEAN CELL VOLUME 76.9 FL (80.0-100.0); MEAN CORPUSCULAR HEMOGLOBIN 25.9 PG (27.0-34.0); MEAN CORPUSCULAR HGB CONC 33.7 % (32.0-36.0); MEAN PLATELET VOLUME 6.8 FL (7.0-11.0); MONO % 5.4 % (0.0-8.0); MONOCYTE # 0.5 TH/MM3 (0-0.9); NEUT % 87.5 % (16.0-70.0); PLATELET COUNT 591 TH/MM3 (150-450); RED BLOOD COUNT 3.42 MIL/MM3 (4.00-5.30); RED CELL DISTRIBUTION WIDTH 18.6 % (11.6-17.2); WHITE BLOOD COUNT 9.5 TH/MM3 (4.0-11.0)
[2017-05-14 13:34] LABS: % SATURATION IRON PROFILE 5.1 % (20-50); IRON (FE) 12 MCG/DL (50-170); TOTAL IRON BINDING CAPACITY 235 MCG/DL (250-450)
[2017-05-14 13:37] LABS: FERRITIN 384 NG/ML (8-252)
[2017-05-14] MEDS ORDERED: HYDROmorphone HCL PF 2 MG/ML VIAL IV PUSH STA (14:07)
[2017-05-14] MEDS ORDERED: HYDROmorphone HCL PF 2 MG/ML VIAL IV PUSH PRN (14:15)
[2017-05-14 15:06] LABS: HEPATITIS A AB IGM NEGATIVE (NEGATIVE); HEPATITIS B CORE AB IGM NEGATIVE (NEGATIVE)
[2017-05-14] MEDS: hydrOXYzine HCL 10 MG TAB PO PRN (15:32)
[2017-05-14 18:56] LABS: IRON (FE) 10 MCG/DL (50-170)
[2017-05-14 19:21] LABS: % SATURATION IRON PROFILE 3.4 % (20-50); FERRITIN 234 NG/ML (8-252); FOLATE 13.8 NG/ML (3.1-17.5); TOTAL IRON BINDING CAPACITY 293 MCG/DL (250-450)
[2017-05-14] MEDS: HYDROmorphone HCL PF 2 MG/ML VIAL IV PUSH PRN ×2 (20:41→23:57)
--- NOTE | 2017-05-14 20:51 | MB ---
cc: Maxwell Butcher MD, Abdul J MD Hernandez,Isabel Padgett,Rodrigo Shaver MD DATE OF CONSULT: 05/14/2017 REASON FOR CONSULTATION: Consult requested by Dr. Padgett for evaluation of Hodgkin's lymphoma. HISTORY OF PRESENT ILLNESS: Ruby is a pleasant 37-year-old female. She is without having any significant past medical history, except that she has anxiety, depression and gastroesophageal reflux disease. The patient says that she has not been feeling well for at least a year or so. She did not seek any medical advice, as she did not have any health insurance. About 4 months ago in February she had developed pneumonia-like symptoms with cough. She took [id number] medications. Since then, the patient said that she has been running fever. Sometimes it goes up to 103. Also, she gets drenching night sweats. She has lost 20 pounds in the last 4 months. She stated that she has been eating but not gaining weight. She also had been complaining of back pain and severe bone pain. She finally got health insurance last month and went to see Dr. Soriano. Blood workup was ordered and she was found to have severe anemia. A CAT of the chest, abdomen and pelvis was done which showed lymphadenopathy, multiple lesions in the lung, spleen and liver. The patient underwent biopsy of the liver mass and also right inguinal lymph node. This was done as an outpatient. After the biopsy when patient went home, she started feeling sick and had a fever of 104 with chills and sweating. She had called her primary physician who advised her to come to the emergency room for further evaluation. When patient came into the emergency room, she had a blood test which showed a white count of 11.6, hemoglobin 7.4, hematocrit 22.9, MCV 75, platelet count 625. The comprehensive metabolic profile was normal except the potassium was 3.4, alkaline phosphatase was 220, total protein was 8.5 and albumin was 2.8. The patient was admitted to the hospital for anemia. She had received 2 units of blood transfusion. Dr. Padgett received a call from the pathologist, Dr. Ha, that the lymph node biopsy came back positive for classical Hodgkin's lymphoma. Dr. Padgett had contacted me for further evaluation and management of Hodgkin's lymphoma. The patient has been not feeling well. She has severe bone, especially tailbone pain, bilateral shoulder pain and middle back pain. She has been getting morphine which does not touch her pain and this has been changed to Dilaudid a few hours ago. Her significant other was present at the bedside. The rest of the review of systems is negative. PAST MEDICAL HISTORY: Depression, anxiety, gastroesophageal reflux disease, history of hypoglycemia, endometriosis, ovarian cyst. PAST SURGICAL HISTORY: Bilateral ovarian cyst removed several years ago. ALLERGIES: NONE. MEDICATIONS: A lot of [id number] medications and Zantac due to the gastroesophageal reflux disease. FAMILY HISTORY: Father is alive with colon cancer. Mother is alive and well. The patient has 2 brothers and 1 sister. One of the brothers from a motor vehicle accident. She does not have any children. SOCIAL HISTORY: The patient does not smoke cigarettes anymore, occasionally drinks alcohol. 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 PHYSICAL EXAMINATION: GENERAL: A well-developed, well-nourished white female in mild distress due to the back pain. VITAL SIGNS: Temperature 97.8, heart rate is 88, respiratory rate is 18, blood pressure is 93/57, O2 saturation is 95%. HEENT: GILBERTO, EOMI. Anicteric. No oral lesions noted. NECK: No lymphadenopathy noted. LUNGS: Clear. No wheezing, rhonchi, rales. CARDIAC: Regular rate and rhythm. ABDOMEN: Diffusely tender. EXTREMITIES: No pedal edema. NEUROLOGIC: Awake, alert and oriented x 3. SKIN: No significant lesions are noted. ASSESSMENT: 1. Classical Hodgkin's lymphoma, mixed cellularity stage IV-B with visceral involvement. 2. Severe back pain due to multiple lesions in the spine from Hodgkin's lymphoma. 3. Fever, night sweats and weight loss due to B symptoms of Hodgkin's lymphoma. 4. History of anxiety and depression. 5. Gastroesophageal reflux disease. 6. History of endometriosis with bilateral ovarian cysts. PLAN: I have reviewed her available records and I had an extensive discussion with the patient and her significant other regarding the diagnosis, staging, treatment and prognosis of stage IV-B Hodgkin's lymphoma. The patient is in severe pain. Therefore, my recommendation is to consult radiation oncologist to evaluate for palliative radiation therapy to the spine to control her pain. I have also recommended that we need to start chemotherapy as soon as possible as she has visceral involvement such as lungs, liver and spleen. We discussed the results of the CAT scan which was done as an outpatient. The CT of the chest done on 05/07 showed multiple masses scattered throughout the lungs. There are numerous lymph nodes noted in the mediastinum and both hilar regions. The CAT scan of the abdomen and pelvis which was done on the same day, 05/07, showed widespread metastatic disease throughout the spleen, liver, retroperitoneum, sclerotic lesion in T12. There is a 2.7 cm low-density lesion noted in the left lobe of the liver. There are at least 5 other low-density lesions scattered throughout the liver concerning for metastatic disease. Spleen has markedly heterogenous appearance with multiple masses. Left paraaortic lymphadenopathy with 2.2 cm. There are 3 other retroperitoneal lymph nodes noted as well. There is a 3 cm right inguinal lymph node noted. There is internal obturator lymphadenopathy noted on the right side. She had multiple tumor markers done, which are all normal such as alpha-fetoprotein, CA 19-9, CEA and CA-125. TSH and free T4 are also normal. She had an upper endoscopy last month which showed some gastritis and esophagitis. Due to the anemia and stools are heme positive, she underwent upper endoscopy again today which came back normal. Colonoscopy has been recommended, but the patient wants to have it done as an outpatient. Unfortunately, the iron studies were not done prior to the blood transfusion. I have called the lab and asked them if they can run the iron studies on the admission specimen. The iron studies done today are not reliable since these were done after the blood transfusion. She does have microcytic hypochromic anemia which is due to the iron deficiency. The cause of iron deficiency is unknown at the present time. Certainly, anemia could be from bone marrow involvement by the lymphoma. We discussed that she has quite extensive widely disseminated Hodgkin's lymphoma. We need to start treatment as soon as possible. We will see how she responds to the chemotherapy. She had a hepatitis screen which came back negative. The liver biopsy is non-diagnostic. I will check the HIV test prior to giving her chemotherapy. I will also check the vitamin B12 and serum folate to evaluate for the cause of the anemia. I will get the echocardiogram for left ventricular ejection fraction prior to the anthracycline chemotherapy. I will also get a pulmonary function test with DLCO prior to giving bleomycin chemotherapy. We will also check LDH and sed rate for lymphoma tumor burden. We discuss results of MRI whole spine which shows multiple lesions c/w lymphoma. I have placed a consult for radiation oncologist to see if she can get radiation therapy to the painful site, especially the tailbone and the middle back. She is in excruciating pain which is not bearable according to her. She has been getting morphine and now it is switched over to Dilaudid. I will transfer the patient to the oncology floor where she will get the chemotherapy. I have discussed with the patient's nurse as well. The patient and her significant other have asked several questions and these were answered to their satisfaction. We also discuss that chemotherpay and radiation may cause infertility and option of egg cryopreservation was offered. Pt has decline it. She does not want to delay her chemotherapy. Child adoption as an alternative was discuss. Thank you, Dr. Padgett, for asking my opinion. MD ORIN Nair//omari , 06:38 PM , 08:29 PM YAHIR
[2017-05-15] VITALS (14 sets, daily range): BP systolic 101–120; BP diastolic 55–69; PULSE 76–116; RESP 16–24; TEMP 97.5–102.7; O2SAT 98–100
[2017-05-15] MEDS: MORPHINE SULFATE 15 MG CONTROLLED RELEASE TAB PO SCH (01:11)
[2017-05-15] MEDS ORDERED: KETOROLAC TROMETHAMINE 30 MG/ML (IVP) VIAL IV PUSH ONE (01:30)
[2017-05-15] MEDS: HYDROmorphone HCL PF 2 MG/ML VIAL IV PUSH PRN ×5 (03:38→21:01)
[2017-05-15] MEDS: hydrOXYzine HCL 10 MG TAB PO PRN ×2 (03:39→22:37)
[2017-05-15] MEDS: DOCUSATE SODIUM 50 MG/SENNA 8.6 MG TAB PO SCH ×2 (08:00→21:02)
[2017-05-15] MEDS: SODIUM CHLORIDE 0.9% FLUSH 10 ML FLUSH IV FLUSH SCH ×2 (08:01→21:02)
--- NOTE | 2017-05-15 08:07 | HHI.PR ---
Subjective Remarks sleeping. boyfriend in room. questions answered. Objective Vitals nad heart reg lung cta abd s/nt ext no edema Vital Signs Date Time Temp Pulse Resp B/P (MAP) Pulse Ox O2 Delivery O2 Flow Rate FiO2 05/15/17 06:00 76 05/15/17 05:00 76 05/15/17 04:00 80 05/15/17 04:00 98.3 80 18 102/68 (79) 98 05/15/17 03:00 86 05/15/17 02:00 104 05/15/17 01:00 116 05/15/17 00:40 107 101/55 (70) 05/15/17 00:21 110 05/14/17 23:50 100.6 129 22 117/65 (82) 94 05/14/17 21:45 99.4 91 98/60 (73) 98 05/14/17 20:00 96.6 96 16 94/59 (71) 95 05/14/17 16:00 97.8 88 18 93/57 (69) 95 05/14/17 14:00 102.7 119 16 88/50 (63) 93 05/14/17 12:21 99.6 99 20 100/60 (73) 96 05/14/17 09:31 97.9 89 18 91/46 (61) 97 Result Diagram: 05/14/17 1230 05/13/17 0640 Imaging Last Impressions Thoracic Spine MRI 05/13/17 0000 Signed Impressions: Service Date/Time: May 17:55 - CONCLUSION: Signal abnormalities within the T3 and T4 vertebral body and right T4 pedicle with contrast enhancement. There is also T1 prolongation without contrast enhancement in the T8 vertebral body. The appearance is nonspecific but is abnormal and suggests possible metastatic disease. Amrit Machado MD Sacrum/Coccyx MRI 05/13/17 0000 Signed Impressions: Service Date/Time: May 17:55 - CONCLUSION: There are signal abnormalities in the superior S2 and bilateral sacroiliac with T2 prolongation and contrast enhancement. This suggests the possibility of metastatic lesions. Amrit Machado MD Lumbar Spine MRI 05/13/17 0000 Signed Impressions: Service Date/Time: May 17:55 - CONCLUSION: 1. No evidence of disc bulge or protrusion. 2. Triangular shaped area of T2 prolongation in the anterior inferior L1 vertebral body with correlating enhancement on the postcontrast study. This of uncertain significance, but would be an unusual shape and location for a metastatic lesion. Amrit Machado MD Abdomen X-Ray 05/13/17 0000 Signed Impressions: Service Date/Time: May 15:26 - CONCLUSION: Moderate stool throughout the colon. Otherwise, benign-appearing abdomen. Guy Arzola MD Hip and Pelvis X-Ray 05/12/17 1854 Signed Impressions: Service Date/Time: Friday, May 12, 2017 19:11 - CONCLUSION: Negative evaluation of the left hip. Amrit Machado MD Outpt Chest CT W/W/O IV contrast (05/07/17): - Innumerable masses scattered throughout the lungs. Numerous lymph nodes throughout the mediastinum and both hilar regions Outpt CT Abd/pelvis W/W/O contrast (05/07/17): - There is widespread metastatic disease throughout the spleen, the liver and the retroperitoneum. Lymphoma most likely diagnosis versus conceivably melanoma or breast cancer. - Indeterminate sclerotic lesion in T12. - Liver with 2.7cm low-density lesion in the lateral segment of the left lobe of the liver. At least 5 other low-density lesions scattered throughout the liver concerning for metastatic disease. - Spleen is markedly heterogenous appearance with multiple masses. - Retroperitoneum with 2.2cm left periaortic lymph node below the left renal vein. At least 3 other retroperitoneal lymph nodes are present. - 3.0 x 1.6cm right inguinal lymph node. Some internal obturator lymphadenopathy on the right as well. A/P Problem List: (1) Hodgkin lymphoma ICD Codes: C81.90 - Hodgkin lymphoma, unspecified, unspecified site Status: Acute Plan: - Pt had reported unintentional weight loss ~20lbs since 03/2017, night sweats and had outpt CT Chest/Abd/Pelvis on 05/07/17 - Outpt Chest CT W/W/O IV contrast (05/07/17): - Innumerable masses scattered throughout the lungs. Numerous lymph nodes throughout the mediastinum and both hilar regions - Outpt CT Abd/pelvis W/W/O contrast (05/07/17): - There is widespread metastatic disease throughout the spleen, the liver and the retroperitoneum. Lymphoma most likely diagnosis versus conceivably melanoma or breast cancer. - Indeterminate sclerotic lesion in T12. - Liver with 2.7cm low-density lesion in the lateral segment of the left lobe of the liver. At least 5 other low-density lesions scattered throughout the liver concerning for metastatic disease. - Spleen is markedly heterogenous appearance with multiple masses. - Retroperitoneum with 2.2cm left periaortic lymph node below the left renal vein. At least 3 other retroperitoneal lymph nodes are present. - 3.0 x 1.6cm right inguinal lymph node. Some internal obturator lymphadenopathy on the right as well. - Pt underwent CT guided liver biopsy and US guided LN biopsy on 05/12/17. - AFP, CA-19-9, CEA, Ca 125 are WNL - TSH, Free T4 are WNL - Pt has been having increased pain in her tailbone and back more recently. - Thoracic Spine MRI (05/13/17) --> Signal abnormalities within the T3 and T4 vertebral body and right T4 pedicle with contrast enhancement. There is also T1 prolongation without contrast enhancement in the T8 vertebral body. The appearance is nonspecific but is abnormal and suggests possible metastatic disease. - Lumbar Spine MRI (05/13/17) --> No evidence of disc bulge or protrusion. Triangular shaped area of T2 prolongation in the anterior inferior L1 vertebral body with correlating enhancement on the postcontrast study. This of uncertain significance, but would be an unusual shape and location for a metastatic lesion. - Sacral spine MRI (05/13/17) --> There are signal abnormalities in the superior S2 and bilateral sacroiliac with T2 prolongation and contrast enhancement. This suggests the possibility of metastatic lesions. -Pathology from lymph nodes shows classic Hodgkin lymphoma. liver bx nondiagnostic -Consulted Dr Butcher. He has discussed with pt and family and chemotherapy planned immediately -cont pain control and titrate as needed. -await further oncology plans. (2) Symptomatic anemia ICD Codes: D64.9 - Anemia, unspecified Status: Acute Plan: - Pt is a 37 y/o female who was sent to the ED by her PCP for worsening anemia and leukocytosis on outpt labs. - Pt reported various complaints at the time of admission, including weight loss (Approx 20lbs in the last 3 months), intermittent dizziness, fevers, "bone pain", night sweats. - Pts outpt H/H has decreased to Hgb 7.4/Hct 22.8, MCV 77, MCH 25 on 05/11/17 and was recommended to report to the ED for further eval. - Pt had previously reported intermittent black stools and was noted to be Hemoccult positive in the ED. - She was seen by GI in 04/2016 and had an EGD with dilation for complaints of dysphagia and odynophagia. The EGD noted gastritis/superficial ulceration of the antrum, esophagitis in the distal esophagus, and food bolus in the stomach. - Pt was planned for outpt evaluation with colonoscopy which had not been performed yet. - Pt has family hx of colon cancer, father. - She has received 2 units of PRBCs at admission with H/H improving to Hgb 9.1/ Hct 26.9 (05/13/17) - GI following - Pt had EGD today which was negative. - Pt refused the colonoscopy - Monitor H/H - PPI - Supportive care (3) Fever ICD Codes: R50.9 - Fever, unspecified Status: Acute Plan: - Pt has had reported night sweats and was noted to have fevers prior to admission, Tmax 103 degrees - Blood cultures taken in the ED with NGTD - UA was negative - tumor fever or related to malignancy, no obvious signs of infection - Tylenol PRN (4) Weight loss, unintentional ICD Codes: R63.4 - Abnormal weight loss Status: Acute Plan: - Pt had reported unintentional weight loss ~20lbs since 03/2017, night sweats and had outpt CT Chest/Abd/Pelvis on 05/07/17 - Outpt Chest CT W/W/O IV contrast (05/07/17): - Innumerable masses scattered throughout the lungs. Numerous lymph nodes throughout the mediastinum and both hilar regions - Outpt CT Abd/pelvis W/W/O contrast (05/07/17): - There is widespread metastatic disease throughout the spleen, the liver and the retroperitoneum. Lymphoma most likely diagnosis versus conceivably melanoma or breast cancer. - Indeterminate sclerotic lesion in T12. - Liver with 2.7cm low-density lesion in the lateral segment of the left lobe of the liver. At least 5 other low-density lesions scattered throughout the liver concerning for metastatic disease. - Spleen is markedly heterogenous appearance with multiple masses. - Retroperitoneum with 2.2cm left periaortic lymph node below the left renal vein. At least 3 other retroperitoneal lymph nodes are present. - 3.0 x 1.6cm right inguinal lymph node. Some internal obturator lymphadenopathy on the right as well. - Pt underwent CT guided liver biopsy and US guided LN biopsy on 05/12/17. Pathology is pending. - AFP, CA-19-9, CEA, Ca 125 are WNL - TSH, Free T4 are WNL - - She denies ever having had a mammogram previously, no reported obvious breast masses. She does not perform self-breast exams regularly - She does get pap smears annually and reports hx of an abnormal PAP 3 years ago and underwent a LEEP procedure at that time. Her last PAP was in 2017 and she reports that this was normal. - She has family hx of colon cancer, father diagnosed in his early 70s (5) Back pain ICD Codes: M54.9 - Dorsalgia, unspecified Status: Acute Plan: - Pt has been having increased pain in her tailbone and back more recently. - Thoracic Spine MRI (05/13/17) --> Signal abnormalities within the T3 and T4 vertebral body and right T4 pedicle with contrast enhancement. There is also T1 prolongation without contrast enhancement in the T8 vertebral body. The appearance is nonspecific but is abnormal and suggests possible metastatic disease. - Lumbar Spine MRI (05/13/17) --> No evidence of disc bulge or protrusion. Triangular shaped area of T2 prolongation in the anterior inferior L1 vertebral body with correlating enhancement on the postcontrast study. This of uncertain significance, but would be an unusual shape and location for a metastatic lesion. - Sacral spine MRI (05/13/17) --> There are signal abnormalities in the superior S2 and bilateral sacroiliac with T2 prolongation and contrast enhancement. This suggests the possibility of metastatic lesions. (6) Liver mass ICD Codes: R16.0 - Hepatomegaly, not elsewhere classified Rodrigo Padgett MD May 15, 2017 08:07
--- NOTE | 2017-05-15 09:00 | PD.ONC.PN ---
Subjective Subjective Remarks T-max 100.6 overnight Patient reports she still has significant pain in her tailbone and left hip Also complaining of itching and continued night sweats Denies drowsiness from pain medications Objective Data Date Time Temp Pulse Resp B/P (MAP) Pulse Ox O2 Delivery O2 Flow Rate FiO2 05/15/17 06:00 76 05/15/17 05:00 76 05/15/17 04:00 80 05/15/17 04:00 98.3 80 18 102/68 (79) 98 05/15/17 03:00 86 05/15/17 02:00 104 05/15/17 01:00 116 05/15/17 00:40 107 101/55 (70) 05/15/17 00:21 110 05/14/17 23:50 100.6 129 22 117/65 (82) 94 05/14/17 21:45 99.4 91 98/60 (73) 98 05/14/17 20:00 96.6 96 16 94/59 (71) 95 05/14/17 16:00 97.8 88 18 93/57 (69) 95 05/14/17 14:00 102.7 119 16 88/50 (63) 93 05/14/17 12:21 99.6 99 20 100/60 (73) 96 05/14/17 09:31 97.9 89 18 91/46 (61) 97 05/15/17 05/15/17 05/15/17 07:00 15:00 23:00 Intake Total 480 ml Balance 480 ml Result Diagram: 05/14/17 1230 05/13/17 0640 Laboratory Results Laboratory Tests Test 05/14/17 12:30 05/14/17 17:35 05/14/17 23:15 White Blood Count 9.5 TH/MM3 Red Blood Count 3.42 MIL/MM3 Hemoglobin 8.9 GM/DL Hematocrit 26.3 % Mean Corpuscular Volume 76.9 FL Mean Corpuscular Hemoglobin 25.9 PG Mean Corpuscular Hemoglobin Concent 33.7 % Red Cell Distribution Width 18.6 % Platelet Count 591 TH/MM3 Mean Platelet Volume 6.8 FL Neutrophils (%) (Auto) 87.5 % Lymphocytes (%) (Auto) 5.9 % Monocytes (%) (Auto) 5.4 % Eosinophils (%) (Auto) 0.9 % Basophils (%) (Auto) 0.3 % Neutrophils # (Auto) 8.3 TH/MM3 Lymphocytes # (Auto) 0.6 TH/MM3 Monocytes # (Auto) 0.5 TH/MM3 Eosinophils # (Auto) 0.1 TH/MM3 Basophils # (Auto) 0.0 TH/MM3 CBC Comment DIFF FINAL Differential Comment Iron Level 12 MCG/DL 10 MCG/DL Total Iron Binding Capacity 235 MCG/DL 293 MCG/DL Percent Iron Saturation 5.1 % 3.4 % Ferritin 384 NG/ML 234 NG/ML Hepatitis A IgM Antibody NEGATIVE Hepatitis B Surface Antigen NEGATIVE Hepatitis B Core IgM Antibody NEGATIVE Hepatitis C Antibody NEGATIVE Lactate Dehydrogenase 297 U/L Vitamin B12 Level 1166 PG/ML Folate 13.8 NG/ML Erythrocyte Sedimentation Rate GREATER THAN 140 mm/hr Culture Results Microbiology Date/Time Source Procedure Growth Status 05/13/17 06:40 Blood Other Aerobic Blood Culture - Preliminary NO GROWTH IN 1 DAY Resulted 05/13/17 06:40 Blood Other Anaerobic Blood Culture - Preliminary NO GROWTH IN 1 DAY Resulted Administered Medications Medications (Trade) Dose Ordered Sig/Yasir Route PRN Reason Start Time Stop Time Status Last Admin Dose Admin Sodium Chloride 1,000 ml @ 75 mls/hr [id number] IV 05/12/17 21:17 05/14/17 21:45 Sodium Chloride (NS Flush) 2 ml BID IV FLUSH 05/13/17 09:00 05/15/17 08:01 Acetaminophen (Tylenol) 650 mg Q4H PRN PO TEMP > 100.4 05/12/17 21:30 05/14/17 23:50 Senna/Docusate Sodium (Cary-Colace) 1 tab BID PO 05/13/17 09:00 05/15/17 08:00 Lactulose (Lactulose Liq) 30 ml DAILY PRN PO SEVERE CONSITIPATION 05/12/17 21:30 05/13/17 16:22 Hydroxyzine HCl (Atarax) 10 mg Q8H PRN PO itching 05/12/17 21:45 05/15/17 03:39 Acetaminophen/ Hydrocodone Bitart ([place] 5-325 Mg) 1 tab Q4H PRN PO pain 2-5 05/13/17 15:15 05/14/17 19:50 Lactated Ringer's 1,000 ml @ 30 mls/hr Q24H PRN IV SEE LABEL COMMENTS 05/14/17 06:45 05/17/17 06:44 05/14/17 07:57 Morphine Sulfate (Oramorph Sr) 15 mg Q8H PO 05/14/17 18:00 05/15/17 01:11 Hydromorphone HCl (Dilaudid Pf Inj) 2 mg Q4H PRN IV PUSH pain 6-10 05/14/17 22:15 05/15/17 07:58 Objective Remarks GENERAL: Thin young female sitting up in bed talking with significant other with occasional wincing SKIN: Warm and dry. HEAD: Normocephalic. EYES: No injection or drainage. NECK: Supple, trachea midline. No JVD or lymphadenopathy. LYMPHATIC: Left supraclavicular shoddy lymph node CARDIOVASCULAR: Regular rate and rhythm without murmurs. RESPIRATORY: Clear posteriorly. Breathing unlabored at rest. GASTROINTESTINAL: Abdomen soft, non-tender, nondistended. EXTREMITIES: No cyanosis, or edema. MUSCULOSKELETAL: Adequate muscle tone. NEUROLOGICAL: No obvious focal deficit. Awake, alert, and oriented x3. Assessment/Plan Problem List: (1) Hodgkin lymphoma ICD Codes: C81.90 - Hodgkin lymphoma, unspecified, unspecified site Status: Acute Plan: 05/15/17: Await echocardiogram. Likely start chemotherapy today. --HIV test pending Hx/Workup: The patient originally became symptomatic in February 2017 with pneumonia like symptoms. She states that she had fevers with drenching night sweats. She is also had a 20 pound weight loss in the last [address] scan of the chest abdomen and pelvis showed widespread lymphadenopathy, multiple lesions in the lung spleen and liver. The patient had a biopsy on 05/12/17 of a right inguinal lymph node that showed classical Hodgkin's lymphoma. (2) Back pain ICD Codes: M54.9 - Dorsalgia, unspecified Status: Acute Plan: --Patient still with significant pain despite IV Dilaudid. --Discussed we can increase her long-acting pain medication for now Assessment 37 y/o female admitted with severe back pain with a new diagnosis of classical Hodgkin's lymphoma Attending Statement The exam, history, and the medical decision-making described in the above note were completed with the assistance of the mid-level provider. I reviewed and agree with the findings presented. I attest that I had a [id number] encounter with the patient on the same day, and personally performed and documented my assessment and findings in the medical record. Complaining of pain in the tailbone Anxious to start treatment Echo Shows LVEF 55 to 70% PFTS with DLCO is pending. start chemo after PFT result. I explain to pt and family that her lungs are compromised due to involvement by lymphoma. 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 We need to have PFT with DLCO before chemo. My recommendation is to start ABVD which is the standard regimen in [facility]. DR Redding saw the pt. Await his recommendation. Family wants her to transfer to [place]. I told them that i have no problem with that. Her insurance and DR Padgett needs to make arrangements for transfer. Consult IR for port on wednesday. Family have asked several questions and i have answered them. D/W RN. Start allopurinol and Decadron. Check uric acid. HIV is pending. . . Candace Woo May 15, 2017 09:00 Lita Butcher MD May 15, 2017 23:52
[2017-05-15 09:16] LABS: AUTOMATED NEUTROPHIL # 7.4 TH/MM3 (1.8-7.7); BASOPHIL % 0.2 % (0.0-2.0); EOSINOPHIL # 0.2 TH/MM3 (0-0.4); EOSINOPHIL % 2.1 % (0.0-4.0); HEMATOCRIT 25.6 % (35.0-46.0); HEMOGLOBIN 8.8 GM/DL (11.6-15.3); LYMPH % 6.2 % (9.0-44.0); LYMPHOCYTE # 0.6 TH/MM3 (1.0-4.8); MEAN CELL VOLUME 77.7 FL (80.0-100.0); MEAN CORPUSCULAR HEMOGLOBIN 26.6 PG (27.0-34.0); MEAN CORPUSCULAR HGB CONC 34.3 % (32.0-36.0); MEAN PLATELET VOLUME 6.6 FL (7.0-11.0); MONO % 7.9 % (0.0-8.0); MONOCYTE # 0.7 TH/MM3 (0-0.9); NEUT % 83.6 % (16.0-70.0); PLATELET COUNT 586 TH/MM3 (150-450); RED CELL DISTRIBUTION WIDTH 18.6 % (11.6-17.2); WHITE BLOOD COUNT 8.9 TH/MM3 (4.0-11.0)
--- NOTE | 2017-05-15 09:26 | ECHRPT ---
Indication: PRE CHEMO EVALUATION CONCLUSIONS Normal left ventricular size. Wall thickness is normal. The left ventricular systolic function is hyperdynamic with an estimated ejection fraction in the ra nge of 65- 70%. There is trace to mild tricuspid valve regurgitation. The estimated pulmonary arterial pressure is 37.2 mmHg. BP: 102 / 68 HR: 76 Rhythm: Sinus MEASUREMENTS (Male / Female) Normal Values Technical Quality:Fair 2D ECHO LV Diastolic Diameter PLAX 5.3 cm 4.2 - 5.9 / 3.9 - 5.3 cm LV Systolic Diameter PLAX 3.7 cm IVS Diastolic Thickness 0.8 cm 0.6 - 1.0 / 0.6 - 0.9 cm LVPW Diastolic Thickness 0.7 cm 0.6 - 1.0 / 0.6 - 0.9 cm LV Relative Wall Thickness 0.3 RV Internal Dim ED PLAX 3.1 cm LVOT Diameter 2.1 cm Aortic Root Diameter 3.0 cm LA Systolic Diameter LX 3.0 cm 3.0 - 4.0 / 2.7 - 3.8 cm M-MODE AV Cusp Separation MM 2.2 cm DOPPLER AV Peak Velocity 135.0 cm/s AV Peak Gradient 7.3 mmHg AV Mean Gradient 3.0 mmHg AV Velocity Time Integral 21.3 cm LVOT Peak Velocity 111.0 cm/s LVOT Peak Gradient 4.9 mmHg LVOT Velocity Time Integral 17.9 cm AV Area Cont Eq vti 2.9 cm AV Area Cont Eq pk 2.8 cm Mitral E Point Velocity 102.0 cm/s Mitral A Point Velocity 79.5 cm/s Mitral E to A Ratio 1.3 LV E' Lateral Velocity 7.3 cm/s Mitral E to LV E' Lateral Ratio 14.0 LV E' Septal Velocity 8.2 cm/s Mitral E to LV E' Septal Ratio 12.5 TR Peak Velocity 261.0 cm/s TR Peak Gradient 27.2 mmHg Right Atrial Pressure 10.0 mmHg Pulmonary Artery Systolic Pressu 37.2 mmHg Right Ventricular Systolic Press 37.2 mmHg PV Peak Velocity 85.0 cm/s PV Peak Gradient 2.9 mmHg FINDINGS LEFT VENTRICLE Normal left ventricular size. Wall thickness is normal. The left ventricular systolic function is hyperdynamic with an estimated ejection fraction in the ra nge of 65- 70%. RIGHT VENTRICLE Normal right ventricular size and systolic function. LEFT ATRIUM The left atrial size is normal. RIGHT ATRIUM The right atrial size is normal. ATRIAL SEPTUM Normal atrial septal thickness without atrial level shunting by limited color doppler interrogation. AORTA The aortic root and proximal ascending aorta are normal in size on limited imaging. MITRAL VALVE Structurally normal mitral valve. No mitral valve stenosis or regurgitation. AORTIC VALVE Trileaflet aortic valve. No aortic valve stenosis or regurgitation. TRICUSPID VALVE There is trace to mild tricuspid valve regurgitation. The estimated pulmonary arterial pressure is 37.2 mmHg. PULMONARY VALVE No pulmonary valve regurgitation or stenosis. VESSELS The inferior vena cava is normal in size. PERICARDIUM No pericardial effusion. Antonio Galloway MD (Electronically Signed) Final Date:15 May 2017 09:25
[2017-05-15 09:45] LABS: ALKALINE PHOSPHATASE 196 U/L (45-117); ALT (GPT) 17 U/L (10-53); AST (GOT) 16 U/L (15-37); BICARBONATE 24.4 MEQ/L (21.0-32.0); BLOOD UREA NITROGEN 8 MG/DL (7-18); CALCIUM 8.3 MG/DL (8.5-10.1); CHLORIDE 98 MEQ/L (98-107); CREATININE 0.54 MG/DL (0.50-1.00); GLOMERULAR FILTRATION RATE 126 ML/MIN (>89); GLUCOSE,RANDOM 68 MG/DL (74-106); SODIUM (NA) 134 MEQ/L (136-145); TOTAL BILIRUBIN ADULT 0.4 MG/DL (0.2-1.0); TOTAL PROTEIN 6.7 GM/DL (6.4-8.2)
[2017-05-15] MEDS ORDERED: MORPHINE SULFATE 15 MG CONTROLLED RELEASE TAB PO SCH (10:00)
[2017-05-15] MEDS ORDERED: POTASSIUM CHLORIDE 20 MEQ CONTROLLED RELEASE TAB PO ONE (10:45)
[2017-05-15] MEDS ORDERED: diphenhydrAMINE HCL 50 MG CAP PO PRN (10:45)
[2017-05-15] MEDS ORDERED: diphenhydrAMINE HCL 25 MG CAP PO PRN (10:45)
--- NOTE | 2017-05-15 11:55 | HHI.GIFU ---
Subjective Remarks Pt just got out of the shower, doing good considerably, no N/V or bleeding. Still refusing colonoscopy (Camelia Gonzalez) Objective Vitals I&O Vital Signs Date Time Temp Pulse Resp B/P (MAP) Pulse Ox O2 Delivery O2 Flow Rate FiO2 05/15/17 08:00 95 05/15/17 08:00 98.6 96 24 108/69 (82) 100 05/15/17 06:00 76 05/15/17 05:00 76 05/15/17 04:00 80 05/15/17 04:00 98.3 80 18 102/68 (79) 98 05/15/17 03:00 86 05/15/17 02:00 104 05/15/17 01:00 116 05/15/17 00:40 107 101/55 (70) 05/15/17 00:21 110 05/14/17 23:50 100.6 129 22 117/65 (82) 94 05/14/17 21:45 99.4 91 98/60 (73) 98 05/14/17 20:00 96.6 96 16 94/59 (71) 95 05/14/17 16:00 97.8 88 18 93/57 (69) 95 05/14/17 14:00 102.7 119 16 88/50 (63) 93 05/14/17 12:21 99.6 99 20 100/60 (73) 96 I/O 05/14/17 05/14/17 05/14/17 05/15/17 05/15/17 05/15/17 07:00 15:00 23:00 07:00 15:00 23:00 Intake Total 1000 ml 400 ml 480 ml Balance 1000 ml 400 ml 480 ml Intake Oral 1000 ml 480 ml Other 400 ml # Voids 3 3 # Bowel Movements 2 Laboratory Laboratory Tests Test 05/14/17 12:30 05/14/17 17:35 05/14/17 23:15 05/15/17 08:34 White Blood Count 9.5 8.9 Red Blood Count 3.42 3.30 Hemoglobin 8.9 8.8 Hematocrit 26.3 25.6 Mean Corpuscular Volume 76.9 77.7 Mean Corpuscular Hemoglobin 25.9 26.6 Mean Corpuscular Hemoglobin Concent 33.7 34.3 Red Cell Distribution Width 18.6 18.6 Platelet Count 591 586 Mean Platelet Volume 6.8 6.6 Neutrophils (%) (Auto) 87.5 83.6 Lymphocytes (%) (Auto) 5.9 6.2 Monocytes (%) (Auto) 5.4 7.9 Eosinophils (%) (Auto) 0.9 2.1 Basophils (%) (Auto) 0.3 0.2 Neutrophils # (Auto) 8.3 7.4 Lymphocytes # (Auto) 0.6 0.6 Monocytes # (Auto) 0.5 0.7 Eosinophils # (Auto) 0.1 0.2 Basophils # (Auto) 0.0 0.0 CBC Comment DIFF FINAL DIFF FINAL Differential Comment Iron Level 12 10 Total Iron Binding Capacity 235 293 Percent Iron Saturation 5.1 3.4 Ferritin 384 234 Hepatitis A IgM Antibody NEGATIVE Hepatitis B Surface Antigen NEGATIVE Hepatitis B Core IgM Antibody NEGATIVE Hepatitis C Antibody NEGATIVE Lactate Dehydrogenase 297 Vitamin B12 Level 1166 Folate 13.8 Erythrocyte Sedimentation Rate GREATER THAN 140 Blood Urea Nitrogen 8 Creatinine 0.54 Random Glucose 68 Total Protein 6.7 Albumin 2.0 Calcium Level 8.3 Alkaline Phosphatase 196 Aspartate Amino Transf (AST/SGOT) 16 Alanine Aminotransferase (ALT/SGPT) 17 Total Bilirubin 0.4 Sodium Level 134 Potassium Level 3.2 Chloride Level 98 Carbon Dioxide Level 24.4 Anion Gap 12 Estimat Glomerular Filtration Rate 126 Date/Time Source Procedure Growth Status 05/13/17 06:40 Blood Other Aerobic Blood Culture - Preliminary NO GROWTH IN 2 DAYS Resulted 05/13/17 06:40 Blood Other Anaerobic Blood Culture - Preliminary NO GROWTH IN 2 DAYS Resulted Imaging Last Impressions Thoracic Spine MRI 05/13/17 Signed Impressions: Service Date/Time: May 17:55 - CONCLUSION: Signal abnormalities within the T3 and T4 vertebral body and right T4 pedicle with contrast enhancement. There is also T1 prolongation without contrast enhancement in the T8 vertebral body. The appearance is nonspecific but is abnormal and suggests possible metastatic disease. Amrit Machado MD Sacrum/Coccyx MRI 05/13/17 Signed Impressions: Service Date/Time: May 17:55 - CONCLUSION: There are signal abnormalities in the superior S2 and bilateral sacroiliac with T2 prolongation and contrast enhancement. This suggests the possibility of metastatic lesions. Amirt Machado MD Lumbar Spine MRI 3/8/18 0000 Signed Impressions: Service Date/Time: May 17:55 - CONCLUSION: 1. No evidence of disc bulge or protrusion. 2. Triangular shaped area of T2 prolongation in the anterior inferior L1 vertebral body with correlating enhancement on the postcontrast study. This of uncertain significance, but would be an unusual shape and location for a metastatic lesion. Amrit Machado MD Abdomen X-Ray 05/13/17 0000 Signed Impressions: Service Date/Time: May 15:26 - CONCLUSION: Moderate stool throughout the colon. Otherwise, benign-appearing abdomen. Guy Arzola MD Hip and Pelvis X-Ray 05/12/17 1854 Signed Impressions: Service Date/Time: Friday, May 12, 2017 19:11 - CONCLUSION: Negative evaluation of the left hip. Amrit Machado MD Physical Exam HEENT: Pupils round and reactive to light; normocephalic; atraumatic; no jaundice. Throat is clear. NECK: Neck is supple, no JVD, no lymphadenopathy. CHEST: Chest is clear to auscultation and percussion. CARDIAC: Regular rate and rhythm with no murmur gallop or rubs. ABDOMEN: Soft, nondistended, nontender;bowel sounds are present in all four quadrants. EXTREMITIES: No clubbing, cyanosis, or edema. SKIN: Normal; no rash; no jaundice. ASSISTANT CHIEF ENGINEER: No focal deficits; alert and oriented times three. (Camelia Gonzalez CHEMICAL LABORATORY SCIENTIST) Assessment and Plan Plan ASSESSMENT - anemia, heme pos stool - No bleeding reported, could be multifactorial, pt with widespread metastatic disease throughout the spleen, the liver and the retroperitoneum. hgb 7.4 on admission, no obvious bleeding reported. S/p negative EGD on , refusing colonoscopy - widespread metastatic disease throughout the spleen, the liver and the retroperitoneum. tumor markers all wnl, oncology on the case, plans for radiation S/P liver bx,05/12/17 - liver biopsy demonstrates intact hepatic architecture HEPATIC TISSUE WITH PROMINENT SINUSOIDAL DILATATION. NEGATIVE FOR MALIGNANCY. S/P CT GUIDED NEEDLE BIOPSY OF RIGHT INGUINAL LYMPH NODE- - CLASSICAL HODGKINS LYMPHOMA PLAN - NIA - Not much to add from GI stand point - monitor labs - Patient refusing colonoscopy - Oncology on the case - GI will sign off pt seen by myself and Dr Montiel and this note is on his behalf (Camelia Gonzalez) Physician Comments As above, please notify us if needed again. (Abimael Montiel MD) Camelia Gonzalez May 15, 2017 11:55 Abimael Montiel MD May 15, 2017 12:25
[2017-05-15 14:10] LABS: ALPHA-1-ANTITRYPSIN 346 mg/dL (100 - 190)
[2017-05-15 14:18] LABS: SMOOTH MUSCLE TOTAL AUTOABS Negative (Negative)
[2017-05-15] MEDS ORDERED: MORPHINE SULFATE 30 MG CONTROLLED RELEASE TAB PO SCH (14:30)
[2017-05-15] MEDS: ACETAMINOPHEN 325 MG TAB PO PRN ×2 (16:03→23:25)
[2017-05-15] MEDS: MORPHINE SULFATE 30 MG CONTROLLED RELEASE TAB PO SCH (16:57)
--- NOTE | 2017-05-15 22:04 | MB ---
cc: Mert Redding MD,Maxwell Soriano,Isabel Padgett,Rodrigo Shaver MD DATE OF CONSULT: This patient was seen at the request of Dr. Butcher for a lady with newly diagnosed Hodgkin lymphoma. BRIEF HISTORY: This is a 37-year-old female who has been healthy over the majority of her lifetime. Unfortunately, for the past several months, perhaps a year, she has been feeling less well. For the past 4-6 months she developed a cough, mostly nonproductive. She has run fevers associated with drenching sweats and has lost at least 20 pounds. Over the past year she has developed increasing pain. She indicates pain is in multiple locations, her ribs, her shoulders, but most severe pain appears to be in her low back, low pelvic area. She denies any aggravating or alleviating factors. When she recently obtained health insurance, workup included anemia. CT scan on an outpatient basis of the chest, abdomen and pelvis revealed pulmonary lesions with lymphadenopathy. She underwent a right inguinal node biopsy which was performed as an outpatient which was termed classical Hodgkin lymphoma. She also underwent a CT guided liver biopsy which was negative for malignancy. She has been subsequently admitted to the hospital where she has undergone further imaging including MRI of the lumbar spine, thoracic spine and sacrum coccyx region. This revealed signal abnormalities in the superior S2 and bilateral sacroiliac with T2 prolongation and contrast enhancement suggesting possible metastatic disease. In the lumbar spine she was noted to have a triangular shaped area of T2 prolongation in the anterior inferior L1 vertebral body with correlating enhancement on the post contrast study. This was though to be an unusual location for metastatic disease. In the thoracic spine signal abnormalities within T3 and T4 vertebral body and right T4 pedicle with contrast enhancement. There T1 prolongation without contrast enhancement and the T8 vertebral body. The appearance is nonspecific but it abnormal and suggesting metastatic disease. This lady has been seen by Dr. Butcher who has recommended systemic therapy. She has been transferred to oncology but because of her pain which has proven to control with narcotic analgesics, we are being asked to see her for consideration of radiation treatment. PAST MEDICAL SURGICAL HISTORY INCLUDES: 1. Depression. 2. Anxiety. 3. Gastroesophageal reflux. 4. Endometriosis. 5. Surgery for ovarian cysts. ALLERGIES: NONE. MEDICATIONS ON ADMISSION: Included [id number] medications and Zantac. SOCIAL HISTORY/FAMILY HISTORY: Father has had colon cancer. Mother is alive and well. One brother unfortunately from a motor vehicle accident. She has had no children. She gives a occasional smoking history years ago. She is currently unemployed. SYSTEMS REVIEW: This lady has had a history of fevers, sweats and weight loss. She has pain which is in multiple locations and somewhat nonspecific but certainly more severe in the low posterior pelvic region consistent with the abnormality found at S2 and the sacroiliac region as well. She does not give a history of peripheral neuropathy associated with this pain. She denies shortness of breath but she does have a bothersome cough without sputum production. She admits to fatigue and weight loss. She denies chest pain, although she does have ribcage pain without palpitations. She has gastroesophageal reflux. She denies diarrhea or bloody stool. She denies urinary complaints. She has no neurologic complaints. She has no dermatologic complaints. PHYSICAL EXAMINATION: GENERAL: Today on exam she is alert and oriented. She was accompanied by her mother but she is obviously uncomfortable. VITAL SIGNS: She was afebrile with a pulse of 104 and regular, respiratory rate is 16, blood pressure of 102/58 with a pulse oximetry of 100 on room air. HEENT: There was no jaundice. Her conjunctivae and eyelids were normal. LYMPHATICS: I did not palpate adenopathy in her head and neck region. She had shotty adenopathy in both axillary regions. LUNGS: Her lung cabrera were clear without effusion. HEART: Sounds were normal with no murmurs, rubs or bruits. ABDOMEN: Diffusely tender. No hepatosplenomegaly, no evidence of ascites. EXTREMITIES: She is moving all limbs. SKIN: Warm. REVIEW OF DATA: I have reviewed this lady's outpatient imaging including her CT chest, abdomen and pelvis. There is mediastinal disease. There is also disease in the periaortic and pelvic area, at least my interpretation of the scans. There is possibly some lateral infraclavicular disease on the right although I was not able to palpate this on exam. As well I have reviewed her MR studies. The findings on the MR scan are somewhat subtle but certainly the radiologists are indicating disease at S3 and the sacrum which would be consistent with her pain. All of this was reviewed with the patient. I have discussed radiation treatment with her. I have stressed that chemotherapy is the most important aspect of her care as she is presenting with stage IVB disease at this time. As classical chemotherapy does involve the use of steroids, I am somewhat optimistic that when her treatment is stated, the steroid effect being both cytotoxic and its essentially dehydrating effect on the tumor may relieve some of the pressure and relieve her pain. Unfortunately, chemotherapy regimen and radiation treatment cannot be delivered at the same time. It would be my anticipation that we would want to start her systemic chemotherapy regimen as soon as possible. If her pain is not improving, then I would consider delivering radiation treatment perhaps just prior to her next chemotherapy but I would need to discuss this further with Dr. Butcher. We could try to limit her radiation treatment to 5 fractions. I do not believe she is a candidate for single fraction treatment. As chemotherapy is such an important part of her regimen, I am reluctant to deliver radiation treatment and compromise any of her bone marrow, however, if pain remains a dominant symptom, then this may be necessary. I will discuss this further with Dr. Butcher and we can then determine the treatment course. MD YVONNE Rivas/rt , 01:47 PM , 10:03 PM
[2017-05-16] VITALS (10 sets, daily range): BP systolic 97–113; BP diastolic 59–74; PULSE 69–127; RESP 16–20; TEMP 97.4–101.1; O2SAT 98–100
[2017-05-16] MEDS: DEXAMETHASONE SOD PHOS 4 MG/ML VIAL IV PUSH SCH ×4 (00:18→18:46)
[2017-05-16] MEDS: HYDROmorphone HCL PF 2 MG/ML VIAL IV PUSH PRN ×6 (00:47→21:59)
[2017-05-16] MEDS: MORPHINE SULFATE 30 MG CONTROLLED RELEASE TAB PO SCH ×3 (03:22→18:48)
[2017-05-16 06:09] LABS: AUTOMATED NEUTROPHIL # 9.5 TH/MM3 (1.8-7.7); BASOPHIL % 0.1 % (0.0-2.0); EOSINOPHIL % 0.1 % (0.0-4.0); LYMPH % 2.9 % (9.0-44.0); LYMPHOCYTE # 0.3 TH/MM3 (1.0-4.8); MEAN CELL VOLUME 77.5 FL (80.0-100.0); MEAN CORPUSCULAR HEMOGLOBIN 25.9 PG (27.0-34.0); MEAN CORPUSCULAR HGB CONC 33.5 % (32.0-36.0); MEAN PLATELET VOLUME 6.5 FL (7.0-11.0); MONO % 2.1 % (0.0-8.0); MONOCYTE # 0.2 TH/MM3 (0-0.9); NEUT % 94.8 % (16.0-70.0); PLATELET COUNT 652 TH/MM3 (150-450); RED BLOOD COUNT 3.49 MIL/MM3 (4.00-5.30); RED CELL DISTRIBUTION WIDTH 18.7 % (11.6-17.2)
[2017-05-16 06:42] LABS: ALBUMIN 2.2 GM/DL (3.4-5.0); AST (GOT) 18 U/L (15-37); BICARBONATE 25.9 MEQ/L (21.0-32.0); BLOOD UREA NITROGEN 8 MG/DL (7-18); CALCIUM 8.6 MG/DL (8.5-10.1); CHLORIDE 104 MEQ/L (98-107); CREATININE 0.55 MG/DL (0.50-1.00); GLOMERULAR FILTRATION RATE 123 ML/MIN (>89); GLUCOSE,RANDOM 115 MG/DL (74-106); SODIUM (NA) 139 MEQ/L (136-145)
[2017-05-16 06:43] LABS: ALT (GPT) 18 U/L (10-53)
[2017-05-16 06:45] LABS: ALKALINE PHOSPHATASE 242 U/L (45-117); TOTAL BILIRUBIN ADULT 0.4 MG/DL (0.2-1.0); TOTAL PROTEIN 7.1 GM/DL (6.4-8.2)
[2017-05-16] MEDS: ALLOPURINOL 300 MG TAB PO SCH (08:59)
[2017-05-16] MEDS: DOCUSATE SODIUM 50 MG/SENNA 8.6 MG TAB PO SCH ×2 (08:59→20:14)
[2017-05-16] MEDS: GABAPENTIN 300 MG CAP PO SCH ×3 (09:00→18:48)
[2017-05-16] MEDS: SODIUM CHLORIDE 0.9% FLUSH 10 ML FLUSH IV FLUSH SCH ×2 (09:00→14:35)
[2017-05-16] MEDS: hydrOXYzine HCL 25 MG TAB PO SCH ×3 (09:00→20:14)
--- NOTE | 2017-05-16 09:01 | HHI.PR ---
Subjective Remarks long discussion with pt/mother....they are contemplating Schneider evaluation. still c/o of alot of burning/itching diffusely. no help from bendadyl or atarax. Objective Vitals heart reg lung cta abd s/nt ext no edema scratching at skin/scalp. Vital Signs Date Time Temp Pulse Resp B/P (MAP) Pulse Ox O2 Delivery O2 Flow Rate FiO2 05/16/17 04:48 97.8 88 16 97/59 (72) 99 05/16/17 04:00 92 05/16/17 00:46 99.5 05/16/17 00:00 101.1 115 17 113/60 (77) 100 05/16/17 00:00 127 05/15/17 20:50 97.5 108 17 120/68 (85) 100 05/15/17 20:00 94 05/15/17 18:12 18 05/15/17 17:34 105 05/15/17 16:15 102.7 105 20 111/69 (83) 100 05/15/17 12:37 99.8 104 16 102/58 (73) 100 Result Diagram: 05/16/17 0541 05/16/17 0541 Imaging Last Impressions Thoracic Spine MRI 05/13/17 0000 Signed Impressions: Service Date/Time: May 17:55 - CONCLUSION: Signal abnormalities within the T3 and T4 vertebral body and right T4 pedicle with contrast enhancement. There is also T1 prolongation without contrast enhancement in the T8 vertebral body. The appearance is nonspecific but is abnormal and suggests possible metastatic disease. Amrit Mahcado MD Sacrum/Coccyx MRI 05/13/17 0000 Signed Impressions: Service Date/Time: May 17:55 - CONCLUSION: There are signal abnormalities in the superior S2 and bilateral sacroiliac with T2 prolongation and contrast enhancement. This suggests the possibility of metastatic lesions. Amrit Machado MD Lumbar Spine MRI 05/13/17 0000 Signed Impressions: Service Date/Time: May 17:55 - CONCLUSION: 1. No evidence of disc bulge or protrusion. 2. Triangular shaped area of T2 prolongation in the anterior inferior L1 vertebral body with correlating enhancement on the postcontrast study. This of uncertain significance, but would be an unusual shape and location for a metastatic lesion. Amrit Machado MD Abdomen X-Ray 05/13/17 0000 Signed Impressions: Service Date/Time: May 15:26 - CONCLUSION: Moderate stool throughout the colon. Otherwise, benign-appearing abdomen. Guy Arzola MD Hip and Pelvis X-Ray 05/12/17 1854 Signed Impressions: Service Date/Time: Friday, May 12, 2017 19:11 - CONCLUSION: Negative evaluation of the left hip. Amrit Machado MD Outpt Chest CT W/W/O IV contrast (05/07/17): - Innumerable masses scattered throughout the lungs. Numerous lymph nodes throughout the mediastinum and both hilar regions Outpt CT Abd/pelvis W/W/O contrast (05/07/17): - There is widespread metastatic disease throughout the spleen, the liver and the retroperitoneum. Lymphoma most likely diagnosis versus conceivably melanoma or breast cancer. - Indeterminate sclerotic lesion in T12. - Liver with 2.7cm low-density lesion in the lateral segment of the left lobe of the liver. At least 5 other low-density lesions scattered throughout the liver concerning for metastatic disease. - Spleen is markedly heterogenous appearance with multiple masses. - Retroperitoneum with 2.2cm left periaortic lymph node below the left renal vein. At least 3 other retroperitoneal lymph nodes are present. - 3.0 x 1.6cm right inguinal lymph node. Some internal obturator lymphadenopathy on the right as well. A/P Problem List: (1) Hodgkin lymphoma ICD Codes: C81.90 - Hodgkin lymphoma, unspecified, unspecified site Status: Acute Plan: - Pt had reported unintentional weight loss ~20lbs since 03/2017, night sweats and had outpt CT Chest/Abd/Pelvis on 05/07/17 - Outpt Chest CT W/W/O IV contrast (05/07/17): - Innumerable masses scattered throughout the lungs. Numerous lymph nodes throughout the mediastinum and both hilar regions - Outpt CT Abd/pelvis W/W/O contrast (05/07/17): - There is widespread metastatic disease throughout the spleen, the liver and the retroperitoneum. Lymphoma most likely diagnosis versus conceivably melanoma or breast cancer. - Indeterminate sclerotic lesion in T12. - Liver with 2.7cm low-density lesion in the lateral segment of the left lobe of the liver. At least 5 other low-density lesions scattered throughout the liver concerning for metastatic disease. - Spleen is markedly heterogenous appearance with multiple masses. - Retroperitoneum with 2.2cm left periaortic lymph node below the left renal vein. At least 3 other retroperitoneal lymph nodes are present. - 3.0 x 1.6cm right inguinal lymph node. Some internal obturator lymphadenopathy on the right as well. - Pt underwent CT guided liver biopsy and US guided LN biopsy on 05/12/17. - AFP, CA-19-9, CEA, Ca 125 are WNL - TSH, Free T4 are WNL - Pt has been having increased pain in her tailbone and back more recently. - Thoracic Spine MRI (05/13/17) --> Signal abnormalities within the T3 and T4 vertebral body and right T4 pedicle with contrast enhancement. There is also T1 prolongation without contrast enhancement in the T8 vertebral body. The appearance is nonspecific but is abnormal and suggests possible metastatic disease. - Lumbar Spine MRI (05/13/17) --> No evidence of disc bulge or protrusion. Triangular shaped area of T2 prolongation in the anterior inferior L1 vertebral body with correlating enhancement on the postcontrast study. This of uncertain significance, but would be an unusual shape and location for a metastatic lesion. - Sacral spine MRI (05/13/17) --> There are signal abnormalities in the superior S2 and bilateral sacroiliac with T2 prolongation and contrast enhancement. This suggests the possibility of metastatic lesions. -Pathology from lymph nodes shows classic Hodgkin lymphoma. liver bx nondiagnostic -Consulted Dr Butcher. He has discussed with pt and family and chemotherapy planned immediately -cont pain control and titrate as needed. On ms yared, norco, iv dilaudid prn. ?trial neurontin. decadron started. -await further oncology plans. orders for echo/pft/port noted -If family wants [place] elfego...will plan to fax records tomorrow and then discuss with [facility] (2) Symptomatic anemia ICD Codes: D64.9 - Anemia, unspecified Status: Acute Plan: - Pt is a 37 y/o female who was sent to the ED by her PCP for worsening anemia and leukocytosis on outpt labs. - Pt reported various complaints at the time of admission, including weight loss (Approx 20lbs in the last 3 months), intermittent dizziness, fevers, "bone pain", night sweats. - Pts outpt H/H has decreased to Hgb 7.4/Hct 22.8, MCV 77, MCH 25 on 05/11/17 and was recommended to report to the ED for further eval. - Pt had previously reported intermittent black stools and was noted to be Hemoccult positive in the ED. - She was seen by GI in 04/2016 and had an EGD with dilation for complaints of dysphagia and odynophagia. The EGD noted gastritis/superficial ulceration of the antrum, esophagitis in the distal esophagus, and food bolus in the stomach. - Pt was planned for outpt evaluation with colonoscopy which had not been performed yet. - Pt has family hx of colon cancer, father. - She has received 2 units of PRBCs at admission with H/H improving to Hgb 9.1/ Hct 26.9 (05/13/17) - GI following - Pt had EGD today which was negative. - Pt refused the colonoscopy - Monitor H/H - PPI - Supportive care (3) Fever ICD Codes: R50.9 - Fever, unspecified Status: Acute Plan: - Pt has had reported night sweats and was noted to have fevers prior to admission, Tmax 103 degrees - Blood cultures taken in the ED with NGTD - UA was negative - tumor fever or related to malignancy, no obvious signs of infection - Tylenol PRN (4) Weight loss, unintentional ICD Codes: R63.4 - Abnormal weight loss Status: Acute Plan: - Pt had reported unintentional weight loss ~20lbs since 03/2017, night sweats and had outpt CT Chest/Abd/Pelvis on 05/07/17 - Outpt Chest CT W/W/O IV contrast (05/07/17): - Innumerable masses scattered throughout the lungs. Numerous lymph nodes throughout the mediastinum and both hilar regions - Outpt CT Abd/pelvis W/W/O contrast (05/07/17): - There is widespread metastatic disease throughout the spleen, the liver and the retroperitoneum. Lymphoma most likely diagnosis versus conceivably melanoma or breast cancer. - Indeterminate sclerotic lesion in T12. - Liver with 2.7cm low-density lesion in the lateral segment of the left lobe of the liver. At least 5 other low-density lesions scattered throughout the liver concerning for metastatic disease. - Spleen is markedly heterogenous appearance with multiple masses. - Retroperitoneum with 2.2cm left periaortic lymph node below the left renal vein. At least 3 other retroperitoneal lymph nodes are present. - 3.0 x 1.6cm right inguinal lymph node. Some internal obturator lymphadenopathy on the right as well. - Pt underwent CT guided liver biopsy and US guided LN biopsy on 05/12/17. Pathology is pending. - AFP, CA-19-9, CEA, Ca 125 are WNL - TSH, Free T4 are WNL - - She denies ever having had a mammogram previously, no reported obvious breast masses. She does not perform self-breast exams regularly - She does get pap smears annually and reports hx of an abnormal PAP 3 years ago and underwent a LEEP procedure at that time. Her last PAP was in 2017 and she reports that this was normal. - She has family hx of colon cancer, father diagnosed in his early 70s (5) Back pain ICD Codes: M54.9 - Dorsalgia, unspecified Status: Acute Plan: - Pt has been having increased pain in her tailbone and back more recently. - Thoracic Spine MRI (05/13/17) --> Signal abnormalities within the T3 and T4 vertebral body and right T4 pedicle with contrast enhancement. There is also T1 prolongation without contrast enhancement in the T8 vertebral body. The appearance is nonspecific but is abnormal and suggests possible metastatic disease. - Lumbar Spine MRI (05/13/17) --> No evidence of disc bulge or protrusion. Triangular shaped area of T2 prolongation in the anterior inferior L1 vertebral body with correlating enhancement on the postcontrast study. This of uncertain significance, but would be an unusual shape and location for a metastatic lesion. - Sacral spine MRI (05/13/17) --> There are signal abnormalities in the superior S2 and bilateral sacroiliac with T2 prolongation and contrast enhancement. This suggests the possibility of metastatic lesions. (6) Liver mass ICD Codes: R16.0 - Hepatomegaly, not elsewhere classified Rodrigo Padgett MD May 16, 2017 09:01
--- NOTE | 2017-05-16 09:12 | PD.ONC.PN ---
Subjective Subjective Remarks Tmax 101.1 overnight Patient complaining of tingling and burning Anxious about upcoming chemotherapy Patient asking about options to see a female oncologist or possible transfer to [place] Objective Data Date Time Temp Pulse Resp B/P (MAP) Pulse Ox O2 Delivery O2 Flow Rate FiO2 05/16/17 04:48 97.8 88 16 97/59 (72) 99 05/16/17 04:00 92 05/16/17 00:46 99.5 05/16/17 00:00 101.1 115 17 113/60 (77) 100 05/16/17 00:00 127 05/15/17 20:50 97.5 108 17 120/68 (85) 100 05/15/17 20:00 94 05/15/17 18:12 18 05/15/17 17:34 105 05/15/17 16:15 102.7 105 20 111/69 (83) 100 05/15/17 12:37 99.8 104 16 102/58 (73) 100 05/16/17 05/16/17 05/16/17 07:00 15:00 23:00 Intake Total 240 ml Balance 240 ml Result Diagram: 05/16/17 0541 05/16/17 0541 Laboratory Results Laboratory Tests Test 05/16/17 05:41 White Blood Count 10.0 TH/MM3 Red Blood Count 3.49 MIL/MM3 Hemoglobin 9.0 GM/DL Hematocrit 27.0 % Mean Corpuscular Volume 77.5 FL Mean Corpuscular Hemoglobin 25.9 PG Mean Corpuscular Hemoglobin Concent 33.5 % Red Cell Distribution Width 18.7 % Platelet Count 652 TH/MM3 Mean Platelet Volume 6.5 FL Neutrophils (%) (Auto) 94.8 % Lymphocytes (%) (Auto) 2.9 % Monocytes (%) (Auto) 2.1 % Eosinophils (%) (Auto) 0.1 % Basophils (%) (Auto) 0.1 % Neutrophils # (Auto) 9.5 TH/MM3 Lymphocytes # (Auto) 0.3 TH/MM3 Monocytes # (Auto) 0.2 TH/MM3 Eosinophils # (Auto) 0.0 TH/MM3 Basophils # (Auto) 0.0 TH/MM3 CBC Comment DIFF FINAL Differential Comment Blood Urea Nitrogen 8 MG/DL Creatinine 0.55 MG/DL Random Glucose 115 MG/DL Total Protein 7.1 GM/DL Albumin 2.2 GM/DL Calcium Level 8.6 MG/DL Uric Acid 3.4 MG/DL Alkaline Phosphatase 242 U/L Aspartate Amino Transf (AST/SGOT) 18 U/L Alanine Aminotransferase (ALT/SGPT) 18 U/L Total Bilirubin 0.4 MG/DL Sodium Level 139 MEQ/L Potassium Level 4.0 MEQ/L Chloride Level 104 MEQ/L Carbon Dioxide Level 25.9 MEQ/L Anion Gap 9 MEQ/L Estimat Glomerular Filtration Rate 123 ML/MIN Administered Medications Medications (Trade) Dose Ordered Sig/Yasir Route PRN Reason Start Time Stop Time Status Last Admin Dose Admin Sodium Chloride (NS Flush) 2 ml BID IV FLUSH 05/13/17 09:00 05/15/17 21:02 Acetaminophen (Tylenol) 650 mg Q4H PRN PO TEMP > 100.4 05/12/17 21:30 05/15/17 23:25 Senna/Docusate Sodium (Cary-Colace) 1 tab BID PO 05/13/17 09:00 05/15/17 21:02 Lactulose (Lactulose Liq) 30 ml DAILY PRN PO SEVERE CONSITIPATION 05/12/17 21:30 05/13/17 16:22 Hydroxyzine HCl (Atarax) 10 mg Q8H PRN PO itching 05/12/17 21:45 05/15/17 22:37 Acetaminophen/ Hydrocodone Bitart ([place] 5-325 Mg) 1 tab Q4H PRN PO pain 2-5 05/13/17 15:15 05/14/17 19:50 Lactated Ringer's 1,000 ml @ 30 mls/hr Q24H PRN IV SEE LABEL COMMENTS 05/14/17 06:45 05/17/17 06:44 05/14/17 07:57 Hydromorphone HCl (Dilaudid Pf Inj) 2 mg Q4H PRN IV PUSH pain 6-10 05/14/17 22:15 05/16/17 06:25 Morphine Sulfate (Oramorph Sr) 30 mg Q8H PO 05/15/17 18:00 05/16/17 03:22 Dexamethasone Sodium Phosphate (Decadron Inj) 4 mg Q6HR IV PUSH 05/16/17 00:00 05/16/17 06:19 Objective Remarks GENERAL: Thin young female sitting up in bed talking with mother at bedside SKIN: Warm and dry. HEAD: Normocephalic. EYES: No injection or drainage. NECK: Supple, trachea midline. No JVD or lymphadenopathy. LYMPHATIC: Left supraclavicular shoddy lymph node CARDIOVASCULAR: Regular rate and rhythm without murmurs. RESPIRATORY: Clear posteriorly. Breathing unlabored at rest. GASTROINTESTINAL: Abdomen soft, non-tender, nondistended. EXTREMITIES: No cyanosis, or edema. MUSCULOSKELETAL: Adequate muscle tone. NEUROLOGICAL: No obvious focal deficit. Awake, alert, and oriented x3. Assessment/Plan Problem List: (1) Hodgkin lymphoma ICD Codes: C81.90 - Hodgkin lymphoma, unspecified, unspecified site Status: Acute Plan: 05/16/17: Unfortunately we will need to wait for pulmonary function test to begin chemo as there are potential pulmonary toxicities. Infusaport placement in am. Chemo to begin likely tomorrow. Continue allopurinol. --HIV test pending --Pulmonary function test pending --Echocardiogram shows EF of 65-70% Hx/Workup: The patient originally became symptomatic in February 2017 with pneumonia like symptoms. She states that she had fevers with drenching night sweats. She is also had a 20 pound weight loss in the last [address] scan of the chest abdomen and pelvis showed widespread lymphadenopathy, multiple lesions in the lung spleen and liver. The patient had a biopsy on 05/12/17 of a right inguinal lymph node that showed classical Hodgkin's lymphoma. (2) Back pain ICD Codes: M54.9 - Dorsalgia, unspecified Status: Acute Plan: --Patient on 30 mg Oramorph every 8 hours --Also has Dilaudid for breakthrough pain --Start gabapentin for generalized tingling and burning Assessment 37 y/o female admitted with severe back pain with a new diagnosis of classical Hodgkin's lymphoma Attending Statement The exam, history, and the medical decision-making described in the above note were completed with the assistance of the mid-level provider. I reviewed and agree with the findings presented. I attest that I had a [id number] encounter with the patient on the same day, and personally performed and documented my assessment and findings in the medical record. Patient is complaining of generalized itching and burning. The tail bone pain has resolved But now she's complaining of bilateral rib cage pain. Consult IR for port. Continue allopurinol, decadron and narcotics, PFT with DLCO tomorrow ( not offered on the weekend). If it is adequate then start ABVD chemo. multiple questions from family, i answered them. She is requesting female oncologist. Will ask Dr Willingham to see her tomorrow. DR Arizaite to make arrangement to [place] to [place] per pt and family request. HIV is pending. Candace Woo May 16, 2017 09:12 Lita Butcher MD May 16, 2017 22:24
[2017-05-16] MEDS: MAGNESIUM HYDROXIDE SUSP 30 ML CUP PO PRN (09:17)
[2017-05-17] VITALS (23 sets, daily range): BP systolic 94–121; BP diastolic 45–83; PULSE 62–97; RESP 16–20; TEMP 96.9–98.5; O2SAT 95–100
[2017-05-17] MEDS: DEXAMETHASONE SOD PHOS 4 MG/ML VIAL IV PUSH SCH ×5 (00:29→23:54)
[2017-05-17] MEDS: MORPHINE SULFATE 30 MG CONTROLLED RELEASE TAB PO SCH ×3 (02:22→16:58)
[2017-05-17] MEDS: hydrOXYzine HCL 25 MG TAB PO SCH ×4 (02:22→20:39)
[2017-05-17] MEDS: HYDROmorphone HCL PF 2 MG/ML VIAL IV PUSH PRN ×6 (02:23→23:54)
[2017-05-17 06:32] LABS: ALBUMIN 2.2 GM/DL (3.4-5.0); AST (GOT) 12 U/L (15-37); BICARBONATE 26.9 MEQ/L (21.0-32.0); BLOOD UREA NITROGEN 10 MG/DL (7-18); CHLORIDE 107 MEQ/L (98-107); CREATININE 0.58 MG/DL (0.50-1.00); GLOMERULAR FILTRATION RATE 116 ML/MIN (>89); GLUCOSE,RANDOM 145 MG/DL (74-106); SODIUM (NA) 142 MEQ/L (136-145)
[2017-05-17 06:34] LABS: ALT (GPT) 18 U/L (10-53)
[2017-05-17 06:36] LABS: ALKALINE PHOSPHATASE 218 U/L (45-117); TOTAL BILIRUBIN ADULT 0.2 MG/DL (0.2-1.0); TOTAL PROTEIN 7.3 GM/DL (6.4-8.2)
[2017-05-17 06:38] LABS: AUTOMATED NEUTROPHIL # 16.5 TH/MM3 (1.8-7.7); BASOPHIL % 0.2 % (0.0-2.0); HEMATOCRIT 28.9 % (35.0-46.0); HEMOGLOBIN 9.5 GM/DL (11.6-15.3); LYMPH % 2.7 % (9.0-44.0); LYMPHOCYTE # 0.5 TH/MM3 (1.0-4.8); MEAN CELL VOLUME 78.9 FL (80.0-100.0); MEAN CORPUSCULAR HEMOGLOBIN 25.8 PG (27.0-34.0); MEAN CORPUSCULAR HGB CONC 32.7 % (32.0-36.0); MEAN PLATELET VOLUME 6.9 FL (7.0-11.0); MONO % 3.4 % (0.0-8.0); MONOCYTE # 0.6 TH/MM3 (0-0.9); NEUT % 93.7 % (16.0-70.0); PLATELET COUNT 785 TH/MM3 (150-450); RED BLOOD COUNT 3.67 MIL/MM3 (4.00-5.30); RED CELL DISTRIBUTION WIDTH 18.6 % (11.6-17.2); WHITE BLOOD COUNT 17.6 TH/MM3 (4.0-11.0)
[2017-05-17] MEDS ORDERED: VANCOMYCIN INJ 1,000 MG in SODIUM CHLOR 0.9% 250 ML INJ 250 ML IV SCH (08:15)
[2017-05-17] MEDS ORDERED: ceFAZolin 2 GM PREMIX 50 ML IV SCH (08:15)
[2017-05-17] MEDS: ALLOPURINOL 300 MG TAB PO SCH (08:53)
[2017-05-17] MEDS: GABAPENTIN 300 MG CAP PO SCH ×3 (08:53→16:58)
[2017-05-17] MEDS: DOCUSATE SODIUM 50 MG/SENNA 8.6 MG TAB PO SCH ×2 (08:53→20:39)
[2017-05-17] MEDS: SODIUM CHLORIDE 0.9% FLUSH 10 ML FLUSH IV FLUSH SCH ×2 (08:55→20:39)
[2017-05-17] MEDS ORDERED: LORazepam 2 MG/ML VIAL IV PUSH STA (09:50)
--- NOTE | 2017-05-17 10:31 | HHI.PR ---
Subjective Remarks Pt just returned from PFT testing Her pain is better controlled today Objective Vitals Vital Signs Date Time Temp Pulse Resp B/P (MAP) Pulse Ox O2 Delivery O2 Flow Rate FiO2 05/17/17 08:47 96.9 70 20 116/75 (89) 100 05/17/17 08:00 76 05/17/17 05:11 98.5 72 16 108/71 (83) 100 05/17/17 04:00 82 05/17/17 00:33 97.7 73 17 118/73 (88) 100 05/17/17 00:00 74 05/16/17 20:00 98.5 95 16 105/62 (76) 100 05/16/17 20:00 69 05/16/17 19:44 100 05/16/17 16:00 97.4 77 18 105/74 (84) 100 05/16/17 12:58 97.8 78 20 101/71 (81) 100 Result Diagram: 05/17/17 0537 05/17/17 0537 Other Results Laboratory Tests Test 05/16/17 05:41 05/17/17 05:37 White Blood Count 10.0 TH/MM3 17.6 TH/MM3 Red Blood Count 3.49 MIL/MM3 3.67 MIL/MM3 Hemoglobin 9.0 GM/DL 9.5 GM/DL Hematocrit 27.0 % 28.9 % Mean Corpuscular Volume 77.5 FL 78.9 FL Mean Corpuscular Hemoglobin 25.9 PG 25.8 PG Mean Corpuscular Hemoglobin Concent 33.5 % 32.7 % Red Cell Distribution Width 18.7 % 18.6 % Platelet Count 652 TH/MM3 785 TH/MM3 Mean Platelet Volume 6.5 FL 6.9 FL Neutrophils (%) (Auto) 94.8 % 93.7 % Lymphocytes (%) (Auto) 2.9 % 2.7 % Monocytes (%) (Auto) 2.1 % 3.4 % Eosinophils (%) (Auto) 0.1 % 0.0 % Basophils (%) (Auto) 0.1 % 0.2 % Neutrophils # (Auto) 9.5 TH/MM3 16.5 TH/MM3 Lymphocytes # (Auto) 0.3 TH/MM3 0.5 TH/MM3 Monocytes # (Auto) 0.2 TH/MM3 0.6 TH/MM3 Eosinophils # (Auto) 0.0 TH/MM3 0.0 TH/MM3 Basophils # (Auto) 0.0 TH/MM3 0.0 TH/MM3 CBC Comment DIFF FINAL DIFF FINAL Differential Comment Blood Urea Nitrogen 8 MG/DL 10 MG/DL Creatinine 0.55 MG/DL 0.58 MG/DL Random Glucose 115 MG/DL 145 MG/DL Total Protein 7.1 GM/DL 7.3 GM/DL Albumin 2.2 GM/DL 2.2 GM/DL Calcium Level 8.6 MG/DL 9.0 MG/DL Uric Acid 3.4 MG/DL Alkaline Phosphatase 242 U/L 218 U/L Aspartate Amino Transf (AST/SGOT) 18 U/L 12 U/L Alanine Aminotransferase (ALT/SGPT) 18 U/L 18 U/L Total Bilirubin 0.4 MG/DL 0.2 MG/DL Sodium Level 139 MEQ/L 142 MEQ/L Potassium Level 4.0 MEQ/L 3.8 MEQ/L Chloride Level 104 MEQ/L 107 MEQ/L Carbon Dioxide Level 25.9 MEQ/L 26.9 MEQ/L Anion Gap 9 MEQ/L 8 MEQ/L Estimat Glomerular Filtration Rate 123 ML/MIN 116 ML/MIN Imaging Last Impressions Thoracic Spine MRI 05/13/17 Signed Impressions: Service Date/Time: May 17:55 - CONCLUSION: Signal abnormalities within the T3 and T4 vertebral body and right T4 pedicle with contrast enhancement. There is also T1 prolongation without contrast enhancement in the T8 vertebral body. The appearance is nonspecific but is abnormal and suggests possible metastatic disease. Amrit Machado MD Sacrum/Coccyx MRI 05/13/17 Signed Impressions: Service Date/Time: May 17:55 - CONCLUSION: There are signal abnormalities in the superior S2 and bilateral sacroiliac with T2 prolongation and contrast enhancement. This suggests the possibility of metastatic lesions. Amrit Machado MD Lumbar Spine MRI 05/13/17 Signed Impressions: Service Date/Time: May 17:55 - CONCLUSION: 1. No evidence of disc bulge or protrusion. 2. Triangular shaped area of T2 prolongation in the anterior inferior L1 vertebral body with correlating enhancement on the postcontrast study. This of uncertain significance, but would be an unusual shape and location for a metastatic lesion. Amrit Machado MD Abdomen X-Ray 05/13/17 0000 Signed Impressions: Service Date/Time: May 15:26 - CONCLUSION: Moderate stool throughout the colon. Otherwise, benign-appearing abdomen. Guy Arzola MD Hip and Pelvis X-Ray 05/12/17 1854 Signed Impressions: Service Date/Time: Friday, May 12, 2017 19:11 - CONCLUSION: Negative evaluation of the left hip. Amrit Machado MD Outpt Chest CT W/W/O IV contrast (05/07/17): - Innumerable masses scattered throughout the lungs. Numerous lymph nodes throughout the mediastinum and both hilar regions Outpt CT Abd/pelvis W/W/O contrast (05/07/17): - There is widespread metastatic disease throughout the spleen, the liver and the retroperitoneum. Lymphoma most likely diagnosis versus conceivably melanoma or breast cancer. - Indeterminate sclerotic lesion in T12. - Liver with 2.7cm low-density lesion in the lateral segment of the left lobe of the liver. At least 5 other low-density lesions scattered throughout the liver concerning for metastatic disease. - Spleen is markedly heterogenous appearance with multiple masses. - Retroperitoneum with 2.2cm left periaortic lymph node below the left renal vein. At least 3 other retroperitoneal lymph nodes are present. - 3.0 x 1.6cm right inguinal lymph node. Some internal obturator lymphadenopathy on the right as well. Objective Remarks General: NAD, AAOx3 Chest: CTA Cardiac: Regular Abd: +BS, soft ND/NT Ext: No edema A/P Problem List: (1) Hodgkin lymphoma ICD Codes: C81.90 - Hodgkin lymphoma, unspecified, unspecified site Status: Acute Plan: - Pt had reported unintentional weight loss ~20lbs since 03/2017, night sweats and had outpt CT Chest/Abd/Pelvis on 05/07/17 - Outpt Chest CT W/W/O IV contrast (05/07/17): - Innumerable masses scattered throughout the lungs. Numerous lymph nodes throughout the mediastinum and both hilar regions - Outpt CT Abd/pelvis W/W/O contrast (05/07/17): - There is widespread metastatic disease throughout the spleen, the liver and the retroperitoneum. Lymphoma most likely diagnosis versus conceivably melanoma or breast cancer. - Indeterminate sclerotic lesion in T12. - Liver with 2.7cm low-density lesion in the lateral segment of the left lobe of the liver. At least 5 other low-density lesions scattered throughout the liver concerning for metastatic disease. - Spleen is markedly heterogenous appearance with multiple masses. - Retroperitoneum with 2.2cm left periaortic lymph node below the left renal vein. At least 3 other retroperitoneal lymph nodes are present. - 3.0 x 1.6cm right inguinal lymph node. Some internal obturator lymphadenopathy on the right as well. - Pt underwent outpt CT guided liver biopsy and US guided LN biopsy on 05/12/17. - AFP, CA-19-9, CEA, Ca 125 are WNL - TSH, Free T4 are WNL - Pt has been having increased pain in her tailbone and back more recently. - Thoracic Spine MRI (05/13/17) --> Signal abnormalities within the T3 and T4 vertebral body and right T4 pedicle with contrast enhancement. There is also T1 prolongation without contrast enhancement in the T8 vertebral body. The appearance is nonspecific but is abnormal and suggests possible metastatic disease. - Lumbar Spine MRI (05/13/17) --> No evidence of disc bulge or protrusion. Triangular shaped area of T2 prolongation in the anterior inferior L1 vertebral body with correlating enhancement on the postcontrast study. This of uncertain significance, but would be an unusual shape and location for a metastatic lesion. - Sacral spine MRI (05/13/17) --> There are signal abnormalities in the superior S2 and bilateral sacroiliac with T2 prolongation and contrast enhancement. This suggests the possibility of metastatic lesions. - Pathology from lymph nodes shows classic Hodgkin lymphoma. liver bx nondiagnostic - Consulted Dr Butcher. He has discussed with pt and family and chemotherapy planned immediately. - Cont pain control and titrate as needed. Pt is on MS Contin 30mg Q8H, [place]ushing 5/ 325 Q4H PRN, Dilaudid IV 2mg Q3H PRN. - Decadron 4mg IV Q6H started on 05/16 - Trial of Neurontin 300mg TID started on 05/16 - 2D echo (05/15/17): - LV systolic function hyperdynamic with estimated EF 65-70% - Trace to mild tricuspid valve regurgitation - Estimated PA pressure 37.2mmHg - Pt still needs to have PFT with DLCO to start chemo - Orders for port placement - Pt and family wants [place] evaluation. - Pt to be seen by Dr. Garcia today who will take over her care for Oncology. (2) Symptomatic anemia ICD Codes: D64.9 - Anemia, unspecified Status: Acute Plan: - Pt is a 37 y/o female who was sent to the ED by her PCP for worsening anemia and leukocytosis on outpt labs. - Pt reported various complaints at the time of admission, including weight loss (Approx 20lbs in the last 3 months), intermittent dizziness, fevers, "bone pain", night sweats. - Pts outpt H/H has decreased to Hgb 7.4/Hct 22.8, MCV 77, MCH 25 on 05/11/17 and was recommended to report to the ED for further eval. - Pt had previously reported intermittent black stools and was noted to be Hemoccult positive in the ED. - She was seen by GI in 04/2016 and had an EGD with dilation for complaints of dysphagia and odynophagia. The EGD noted gastritis/superficial ulceration of the antrum, esophagitis in the distal esophagus, and food bolus in the stomach. - Pt was planned for outpt evaluation with colonoscopy which had not been performed yet. - Pt has family hx of colon cancer, father. - She has received 2 units of PRBCs at admission with H/H improving and stable - GI following - Pt had EGD on 05/14/17 which was negative. - Pt refused the colonoscopy - Monitor H/H - PPI - Supportive care (3) Fever ICD Codes: R50.9 - Fever, unspecified Status: Acute Plan: - Pt has had reported night sweats and was noted to have fevers prior to admission, Tmax 103 degrees - Blood cultures taken in the ED with NGTD - UA was negative - [place] to most likely be related to tumor fever or related to malignancy, no obvious signs of infection - Tylenol PRN (4) Weight loss, unintentional ICD Codes: R63.4 - Abnormal weight loss Status: Acute Plan: - See above. (5) Back pain ICD Codes: M54.9 - Dorsalgia, unspecified Status: Acute Plan: - Pt has been having increased pain in her tailbone and back more recently likely related to bone mets. - See above (6) Liver mass ICD Codes: R16.0 - Hepatomegaly, not elsewhere classified Assessment and Plan Patient examined. Assessment and plan formulated with Devi Gallego PA-C. I agree with the above. Pain under better control today. Continue current regimen. Devi Gallego May 17, 2017 10:31 Marcelo Brumfield DO May 19, 2017 11:29
[2017-05-17 11:52] LABS: CERULOPLASMIN 65 mg/dL (18-53)
--- NOTE | 2017-05-17 11:59 | PD.ONC.PN ---
Subjective Subjective Remarks Afebrile overnight. Patient resting in bed. she is anxious. denies pain at present. no shortness of breath. Objective Data Date Time Temp Pulse Resp B/P (MAP) Pulse Ox O2 Delivery O2 Flow Rate FiO2 05/17/17 08:47 96.9 70 20 116/75 (89) 100 05/17/17 08:00 76 05/17/17 05:11 98.5 72 16 108/71 (83) 100 05/17/17 04:00 82 05/17/17 00:33 97.7 73 17 118/73 (88) 100 05/17/17 00:00 74 05/16/17 20:00 98.5 95 16 105/62 (76) 100 05/16/17 20:00 69 05/16/17 19:44 100 05/16/17 16:00 97.4 77 18 105/74 (84) 100 05/16/17 12:58 97.8 78 20 101/71 (81) 100 05/17/17 05/17/17 05/17/17 07:00 15:00 23:00 Intake Total 600 ml Balance 600 ml Result Diagram: 05/17/17 0537 05/17/17 0537 Laboratory Results Laboratory Tests Test 05/17/17 05:37 White Blood Count 17.6 TH/MM3 Red Blood Count 3.67 MIL/MM3 Hemoglobin 9.5 GM/DL Hematocrit 28.9 % Mean Corpuscular Volume 78.9 FL Mean Corpuscular Hemoglobin 25.8 PG Mean Corpuscular Hemoglobin Concent 32.7 % Red Cell Distribution Width 18.6 % Platelet Count 785 TH/MM3 Mean Platelet Volume 6.9 FL Neutrophils (%) (Auto) 93.7 % Lymphocytes (%) (Auto) 2.7 % Monocytes (%) (Auto) 3.4 % Eosinophils (%) (Auto) 0.0 % Basophils (%) (Auto) 0.2 % Neutrophils # (Auto) 16.5 TH/MM3 Lymphocytes # (Auto) 0.5 TH/MM3 Monocytes # (Auto) 0.6 TH/MM3 Eosinophils # (Auto) 0.0 TH/MM3 Basophils # (Auto) 0.0 TH/MM3 CBC Comment DIFF FINAL Differential Comment Blood Urea Nitrogen 10 MG/DL Creatinine 0.58 MG/DL Random Glucose 145 MG/DL Total Protein 7.3 GM/DL Albumin 2.2 GM/DL Calcium Level 9.0 MG/DL Alkaline Phosphatase 218 U/L Aspartate Amino Transf (AST/SGOT) 12 U/L Alanine Aminotransferase (ALT/SGPT) 18 U/L Total Bilirubin 0.2 MG/DL Sodium Level 142 MEQ/L Potassium Level 3.8 MEQ/L Chloride Level 107 MEQ/L Carbon Dioxide Level 26.9 MEQ/L Anion Gap 8 MEQ/L Estimat Glomerular Filtration Rate 116 ML/MIN Administered Medications Medications (Trade) Dose Ordered Sig/Yasir Route PRN Reason Start Time Stop Time Status Last Admin Dose Admin Sodium Chloride (NS Flush) 2 ml BID IV FLUSH 05/13/17 09:00 05/17/17 08:55 Acetaminophen (Tylenol) 650 mg Q4H PRN PO TEMP > 100.4 05/12/17 21:30 05/15/17 23:25 Senna/Docusate Sodium ([place]-Colace) 1 tab BID PO 05/13/17 09:00 05/17/17 08:53 Magnesium Hydroxide (Milk Of Magnesia Liq) 30 ml Q12H PRN PO Mild constipation 05/12/17 21:30 05/16/17 09:17 Lactulose (Lactulose Liq) 30 ml DAILY PRN PO SEVERE CONSITIPATION 05/12/17 21:30 05/13/17 16:22 Acetaminophen/ Hydrocodone Bitart ([place] 5-325 Mg) 1 tab Q4H PRN PO pain 2-5 05/13/17 15:15 05/14/17 19:50 Morphine Sulfate (Oramorph Sr) 30 mg Q8H PO 05/15/17 18:00 05/17/17 08:54 Allopurinol (Zyloprim) 300 mg DAILY PO 05/16/17 09:00 05/17/17 08:53 Dexamethasone Sodium Phosphate (Decadron Inj) 4 mg Q6HR IV PUSH 05/16/17 00:00 05/17/17 05:09 Gabapentin (Neurontin) 300 mg TID PO 05/16/17 09:00 05/17/17 08:53 Hydroxyzine HCl (Atarax) 25 mg Q6H PO 05/16/17 09:00 05/17/17 08:54 Hydromorphone HCl (Dilaudid Pf Inj) 2 mg Q3H PRN IV PUSH pain 6-10 05/16/17 17:45 05/17/17 08:57 Objective Remarks GENERAL: Young woman, sitting up in bed, anxious. SKIN: Warm and dry. HEAD: Normocephalic. EYES: No injection or drainage. NECK: Supple, trachea midline. CARDIOVASCULAR: Regular rate and rhythm RESPIRATORY: Breath sounds equal bilaterally. No accessory muscle use. GASTROINTESTINAL: Abdomen soft, non-tender, nondistended. EXTREMITIES: No cyanosis NEUROLOGICAL: awake and alert. normal speech. no obvious focal deficit. Assessment/Plan Problem List: (1) Hodgkin lymphoma ICD Codes: C81.90 - Hodgkin lymphoma, unspecified, unspecified site Status: Acute Plan: 05/17/17: port placement this afternoon. PFTs this AM. --HIV test pending --Pulmonary function test pending --Echocardiogram shows EF of 65-70% HPI: 4 months ago in February she had developed pneumonia-like symptoms with cough. +running fever. goes up to 103. ++drenching night sweats. lost 20 pounds in the last 4 months. complaining of back pain and severe bone pain. CAT of the chest, abdomen and pelvis was done which showed lymphadenopathy, multiple lesions in the lung, spleen and liver. biopsy of the liver mass and also right inguinal lymph node=classical Hodgkin's lymphoma. --Miladis consulted ([facility]) for possible palliative xrt to painful back lesions : chemotherapy regimen and radiation treatment cannot be delivered at the same time. If her pain is not improving, consider delivering radiation treatment perhaps just prior to her next chemotherapy--could try to limit her radiation treatment to 5 fractions. do not believe she is a candidate for single fraction treatment. (2) Back pain ICD Codes: M54.9 - Dorsalgia, unspecified Status: Acute Plan: --continue Oramorph + PRN dilaudid. --on scheduled gabapentin for generalized tingling and burning Assessment 37 y/o female admitted with severe back pain with a new diagnosis of classical Hodgkin's lymphoma Attending Statement The exam, history, and the medical decision-making described in the above note were completed with the assistance of the mid-level provider. I reviewed and agree with the findings presented. I attest that I had a [id number] encounter with the patient on the same day, and personally performed and documented my assessment and findings in the medical record. Pt seen and examined. Discussed with Dr. Butcher. Pt requesting second opinion. Dx. High (5) International Prognostic Score classical HD. 5yr OS 56%, 5 yr FFP 42% Albumin 2.0 Hgb <10.5 Stage IV disease WBC >15K ALC <500 Discussed atlength staging, radiographic finding, discussed chemotherapy common toxicity.. Recommend BM bx and aspiration tomorrow. r/o iron deficiency Check hgb electrophoresis. Pending results PFT, DLCO. Anticipate starting ABVD pending results PFT. Discussed fertility concern. Consult w/ [employer] as pt started her OC's on her own today. Consider ovarian suppression for small chance to improve fertility options after chemo and control her cycles. She would like to have children in future, it has not been the right time for her. Encourage to consider going home after cycle 1 chemo with follow up as out pt. Approval for ABVD needed as out pt. Jessica Easton May 17, 2017 11:59 Tran Lima MD May 17, 2017 19:15
[2017-05-17] MEDS ORDERED: MIDAZOLAM HCL 2 MG/2 ML VIAL ONE (14:00)
[2017-05-17] MEDS ORDERED: LIDOCAINE 1%/EPINEPHrine 1:100,000 SOLN 30 ML VIAL ONE (14:10)
--- NOTE | 2017-05-17 14:47 | PD.RAD ---
Post Procedure Progress Note Pre Procedure Diagnosis: (1) Hodgkin lymphoma Post Procedure Diagnosis: (1) Hodgkin lymphoma Procedure Date: May 17, 2017 Supervising Radiologist: Jm Archre Proceduralist/Assist: Mindy Smith, RT(R), June Lindsay RT(R)() Anesthesia: Conscious Sedation Plan of Activity Patient to Unit: ROPU Patient Condition: Good See PACS Report for procedural detail/treatment Jm Archer MD May 17, 2017 14:47
--- NOTE | 2017-05-17 15:38 | RADRPT ---
EXAM DATE/TIME: 05/17/2017 13:03 [facility] COMPARISON: No previous studies available for comparison. INDICATIONS : Patient with a history of hodgkins lymphoma. MEDICAL HISTORY : Hodgkins lymphoma SURGICAL HISTORY : Ovarian cyst removal ENCOUNTER: Initial ACUITY: 2 days PAIN SCORE: 9/10 LOCATION: low back FLUORO TIME: 0.1 minutes IMAGE SERIES: 0 SEDATION TIME: 25 minutes ACCESS: Right internal jugular vein SEDATION: 1.) 3 mg midazolam (Versed) IV 2.) 200 mcg fentanyl (Sublimaze) IV Prophylactic antibiotics were administered with appropriate pre-procedure timing. Vancomycin within 2 hours of procedure, Ancef (or alternative) within 1 hour of procedure. DEVICE: 1. 8 Angolan single lumen [id number] PROCEDURE : 1. Continuous pulse oximetry and EKG monitoring. 2. Intravenous conscious sedation. 3. Ultrasound guidance for venous access. 4. Fluoroscopic guided implantable central venous port placement. The patient was placed supine. The neck was prepped in sterile fashion. Full sterile technique was u sed, including cap, mask, sterile gloves and gown, and a large sterile sheet. Hand hygiene and 2% ch lorhexidine Betadine was utilized per protocol for cutaneous antisepsis with appropriate dry time for site. Sterile gel and sterile probe cover were utilized for ultrasound guidance. The skin and sub cutaneous tissues were infiltrated with local anesthetic solution. Under direct ultrasound guidance, central venous access was accomplished in the targeted vessel. The ultrasound images depicting access guidance were stored and saved to PACS for permanent record. A s ubcutaneous pocket was created using blunt dissection. The port was introduced to the pocket. The c atheter tubing was fed through a subcutaneous tunnel to the venotomy site. The catheter tubing was c ut to a suitable length and then was introduced through a valved Peel-Away sheath and positioned with catheter tubing tip at the cavo-atrial junction level. The pocket incision was closed with subcutic ular Vicryl suture. Steri-Strips were applied. The port was flushed and locked with heparin solutio n per protocol. Sterile dressing was applied to the site. The patient tolerated the procedure well. Conscious sedation was performed with the prescribed dosages and duration as above in the presence of an independent trained radiology nurse to assist in the monitoring of the patient. EKG and oximetry remained stable throughout the procedure. The patient tolerated the procedure well and there were no complications. The patient was sent to post anesthesia recovery in stable condition. CONCLUSION: Uncomplicated ultrasound and fluoroscopic guided implanted central venous port catheter placement as described in detail above. An 8 Angolan Power port was placed. Jm Archer MD on May 17, 2017 at 15:36 Board Certified Radiologist. This report was verified electronically.
[2017-05-17] MEDS: MAGNESIUM HYDROXIDE SUSP 30 ML CUP PO PRN (22:13)
[2017-05-18] VITALS (21 sets, daily range): BP systolic 103–123; BP diastolic 60–70; PULSE 56–112; RESP 16–20; TEMP 97.3–98.3; O2SAT 95–98
[2017-05-18] MEDS: MORPHINE SULFATE 30 MG CONTROLLED RELEASE TAB PO SCH ×3 (02:31→18:25)
[2017-05-18] MEDS: HYDROmorphone HCL PF 2 MG/ML VIAL IV PUSH PRN ×7 (02:31→23:08)
[2017-05-18] MEDS: hydrOXYzine HCL 25 MG TAB PO SCH ×4 (02:31→20:36)
[2017-05-18] MEDS: DEXAMETHASONE SOD PHOS 4 MG/ML VIAL IV PUSH SCH ×3 (05:24→18:26)
[2017-05-18 06:28] LABS: AUTOMATED NEUTROPHIL # 13.9 TH/MM3 (1.8-7.7); BASOPHIL % 0.1 % (0.0-2.0); HEMATOCRIT 26.3 % (35.0-46.0); HEMOGLOBIN 8.6 GM/DL (11.6-15.3); LYMPH % 2.8 % (9.0-44.0); LYMPHOCYTE # 0.4 TH/MM3 (1.0-4.8); MEAN CELL VOLUME 78.3 FL (80.0-100.0); MEAN CORPUSCULAR HEMOGLOBIN 25.7 PG (27.0-34.0); MEAN CORPUSCULAR HGB CONC 32.8 % (32.0-36.0); MEAN PLATELET VOLUME 6.6 FL (7.0-11.0); MONO % 3.2 % (0.0-8.0); MONOCYTE # 0.5 TH/MM3 (0-0.9); NEUT % 93.9 % (16.0-70.0); PLATELET COUNT 760 TH/MM3 (150-450); RED BLOOD COUNT 3.36 MIL/MM3 (4.00-5.30); RED CELL DISTRIBUTION WIDTH 18.5 % (11.6-17.2); WHITE BLOOD COUNT 14.9 TH/MM3 (4.0-11.0)
[2017-05-18 06:53] LABS: ALBUMIN 2.3 GM/DL (3.4-5.0); AST (GOT) 15 U/L (15-37); BICARBONATE 25.6 MEQ/L (21.0-32.0); BLOOD UREA NITROGEN 16 MG/DL (7-18); CALCIUM 8.7 MG/DL (8.5-10.1); CHLORIDE 105 MEQ/L (98-107); CREATININE 0.59 MG/DL (0.50-1.00); GLOMERULAR FILTRATION RATE 113 ML/MIN (>89); GLUCOSE,RANDOM 119 MG/DL (74-106); SODIUM (NA) 141 MEQ/L (136-145)
[2017-05-18 06:54] LABS: ALT (GPT) 22 U/L (10-53)
[2017-05-18 06:57] LABS: ALKALINE PHOSPHATASE 185 U/L (45-117); TOTAL BILIRUBIN ADULT 0.2 MG/DL (0.2-1.0); TOTAL PROTEIN 6.7 GM/DL (6.4-8.2)
[2017-05-18] MEDS: ALLOPURINOL 300 MG TAB PO SCH (08:46)
[2017-05-18] MEDS: GABAPENTIN 300 MG CAP PO SCH ×3 (08:46→18:26)
[2017-05-18] MEDS: DOCUSATE SODIUM 50 MG/SENNA 8.6 MG TAB PO SCH ×2 (08:47→19:38)
[2017-05-18] MEDS: PANTOPRAZOLE SODIUM 40 MG VIAL IV PUSH SCH (08:49)
--- NOTE | 2017-05-18 08:49 | RSPPFT ---
DATE OF PROCEDURE: 05/17/17 COMMENTS: VOLUMES DYNAMIC: FVC and FEV1 normal. STATIC: RV and FRC mildly increased; TLC normal. FLOWS: FEV1% normal; FEF 25-75 severely reduced. DIFFUSION: Low normal. IMPRESSION: Very mild obstructive ventilatory defect in the terminal airways with mild hyperinflation. There is improvement post-bronchodilator.
[2017-05-18] MEDS: SODIUM CHLORIDE 0.9% FLUSH 10 ML FLUSH IV FLUSH SCH ×2 (08:58→19:40)
[2017-05-18] MEDS ORDERED: LORazepam 2 MG/ML VIAL IV PUSH PRN (09:00)
--- NOTE | 2017-05-18 09:15 | PD.ONC.PN ---
Subjective Subjective Remarks Afebrile overnight. Patient still having itching, feeling anxious. She feels good about the plan today. Waiting to go down for bone marrow biopsy. reports pain in her back and around her collar bone (at site of port placement) . has been using IV breakthrough dilaudid every three hours, and states sometimes she needs it before it is available. Objective Data Date Time Temp Pulse Resp B/P (MAP) Pulse Ox O2 Delivery O2 Flow Rate FiO2 05/18/17 05:20 98.2 68 16 112/63 (79) 98 05/18/17 04:04 100 05/18/17 00:05 70 05/17/17 23:55 97.5 75 16 114/76 (89) 99 05/17/17 21:00 97.8 92 18 110/73 (85) 100 05/17/17 20:27 82 05/17/17 18:00 90 05/17/17 17:10 97.5 92 20 118/74 (89) 100 05/17/17 16:48 97.5 92 18 118/74 (89) 100 05/17/17 16:15 96 18 96/50 (65) 96 05/17/17 15:43 84 18 104/53 (70) 96 05/17/17 15:15 97 20 97/45 (62) 95 05/17/17 15:00 86 20 103/46 (65) 96 05/17/17 13:00 82 05/17/17 12:00 66 05/17/17 12:00 98.4 79 18 94/49 (64) 100 05/17/17 11:00 62 05/17/17 10:00 70 05/18/17 05/18/17 05/18/17 06:59 14:59 22:59 Intake Total 240 ml Output Total 300 ml Balance -60 ml Result Diagram: 05/18/17 0600 05/18/17 0600 Objective Remarks GENERAL: Young woman, upright in bed, anxious, agitated, polite and well groomed. SKIN: Warm and dry. port in place, right chest wall. HEAD: Normocephalic. EYES: No injection or drainage. NECK: Supple, trachea midline. CARDIOVASCULAR: Regular rate and rhythm RESPIRATORY: Breath sounds equal bilaterally. No accessory muscle use. GASTROINTESTINAL: Abdomen soft, non-tender, nondistended. EXTREMITIES: No cyanosis NEUROLOGICAL: no obvious focal deficit. Assessment/Plan Problem List: (1) Hodgkin lymphoma ICD Codes: C81.90 - Hodgkin lymphoma, unspecified, unspecified site Status: Acute Plan: 05/18/17: CROP OR GRAIN FARMER oncology consult, bone marrow biopsy today. --HIV negative --Pulmonary function test: VOLUMES DYNAMIC: FVC and FEV1 normal. STATIC: RV and FRC mildly increased; TLC normal. FLOWS: FEV1% normal; FEF 25-75 severely reduced. DIFFUSION: Low normal. IMPRESSION: --Very mild obstructive ventilatory defect in the terminal airways with mild hyperinflation. There is improvement post-bronchodilator. --Echocardiogram shows EF of 65-70% HPI: 4 months ago in February she had developed pneumonia-like symptoms with cough. +running fever. goes up to 103. ++drenching night sweats. lost 20 pounds in the last 4 months. complaining of back pain and severe bone pain. CAT of the chest, abdomen and pelvis was done which showed lymphadenopathy, multiple lesions in the lung, spleen and liver. biopsy of the liver mass and also right inguinal lymph node=classical Hodgkin's lymphoma. --Miladis consulted ([facility]) for possible palliative xrt to painful back lesions : chemotherapy regimen and radiation treatment cannot be delivered at the same time. If her pain is not improving, consider delivering radiation treatment perhaps just prior to her next chemotherapy--could try to limit her radiation treatment to 5 fractions. do not believe she is a candidate for single fraction treatment. (2) Back pain ICD Codes: M54.9 - Dorsalgia, unspecified Status: Acute Plan: 05/18: increase Oramorph to 60mg PO TID, continue Dilaudid IV for breakthrough pain. --on scheduled gabapentin for generalized tingling and burning (3) Insomnia ICD Codes: G47.00 - Insomnia, unspecified Plan: --ativan 0.5mg IV PRN Assessment 37 y/o female admitted with severe back pain with a new diagnosis of classical Hodgkin's lymphoma Plan 1. patient requiring large amounts of dilaudid for breakthrough pain. will increase long-acting Oramorph to 60mg PO TID and continue dilaudid for breakthrough 2. add ativan 0.5mg IV PRN anxiety or insomnia. 3. await CROP OR GRAIN FARMER consult, appreciate assistance. 4. bone marrow biopsy today. Attending Statement The exam, history, and the medical decision-making described in the above note were completed with the assistance of the mid-level provider. I reviewed and agree with the findings presented. I attest that I had a ukqz-[id number] encounter with the patient on the same day, and personally performed and documented my assessment and findings in the medical record. Pt seen and examined. Recommend against the cold caps, she is at high risk/significant risk HD, I do not wish to compromise any aspect of curative intent chemotherapy. CROP OR GRAIN FARMER consult still pending, she continues on her OC's, discussed the risk of VTE , plan on DVT prophylaxis. Await CROP OR GRAIN FARMER recommendations. S/P bone marrow biopsy, discussed risk and benefits of ABVD. OK to start treatment. Discussed w/ Dr. Garcia, her PFT are acceptable to proceed with chemotherapy. Monitor for toxicity. DC planning. Advised that she could go home w/ fu as out pt after her chemo. She will need to follow up with Oncology as out pt. Jessica Easton May 18, 2017 09:15 Tran Lima MD May 18, 2017 19:02
[2017-05-18] MEDS ORDERED: MIDAZOLAM HCL 2 MG/2 ML VIAL ONE (13:27)
--- NOTE | 2017-05-18 15:34 | RADRPT ---
EXAM DATE/TIME: 05/18/2017 14:08 [facility] COMPARISON: No previous studies available for comparison. INDICATIONS : Lymphoma SEDATION TIME: 25 minutes BIOPSY SITE: Right ilium MEDICATION(S): 1.) 4 mg midazolam (Versed) IV 2.) 200 mcg fentanyl (Sublimaze) IV DEVICE(S): 1.) 12 gauge On-Control needle MEDICAL HISTORY : None. SURGICAL HISTORY : None. ENCOUNTER: Initial ACUITY: 1 day PAIN SCORE: 8/10 LOCATION: back A total of one core specimen(s) were obtained and sent to the laboratory for pathologic evaluation. PROCEDURE: 1. CT guided bone marrow biopsy. Prior to the procedure informed consent was obtained. Any appropriate prior imaging studies were rev iewed. Using automated exposure control and adjustment of the mA and/or kV according to patient size , radiation dose was kept as low as reasonably achievable to obtain optimal diagnostic quality images . DICOM format image data is available electronically for review and comparison. The site was prepped in a sterile fashion. Full sterile technique was used, including cap, mask, andrea rile gloves and gown and a large sterile sheet. Hand hygiene and 2% chlorhexidine and/or betadine/al cohol prep was utilized per protocol for cutaneous antisepsis. The skin and subcutaneous tissues wer e infiltrated with local anesthetic solution. With CT guidance the previously identified target was localized. Biopsy was performed using the presc ribed needle as above. Following biopsy marrow aspiration was performed with repeat puncture. Adequa te hemostasis was obtained with compression at the puncture site. Follow-up CT scan reveals no hemorrhage. Conscious sedation was performed with the prescribed dosages and duration as above in the presence of an independent trained radiology nurse to assist in the monitoring of the patient. EKG and oximetry remained stable throughout the procedure. The patient tolerated the procedure well and there were no complications. The patient was sent to Radiology Outpatient Unit in stable condition. CONCLUSION: 1. Uncomplicated CT guided bone marrow aspirate. 2. Uncomplicated CT guided bone marrow biopsy. Asaf Diaz MD on May 18, 2017 at 15:28 Board Certified Radiologist. This report was verified electronically.
--- NOTE | 2017-05-18 18:34 | HHI.PR ---
Subjective Remarks Pt had BM biopsy today She had port placed on 05/17 Some pain control issues overnight and this morning and Oramorph increased Pt afebrile since 05/16 Objective Vitals Vital Signs Date Time Temp Pulse Resp B/P (MAP) Pulse Ox O2 Delivery O2 Flow Rate FiO2 05/18/17 17:00 112 05/18/17 15:40 68 18 110/68 (82) 96 05/18/17 15:10 63 18 123/66 (85) 96 05/18/17 14:55 97.3 73 18 119/67 (84) 95 05/18/17 13:00 86 05/18/17 12:15 97.7 89 20 105/60 (75) 97 108/70 (83) 05/18/17 12:00 74 05/18/17 11:00 60 05/18/17 10:00 92 05/18/17 09:00 70 05/18/17 08:45 98.1 69 18 107/62 (77) 96 05/18/17 08:45 58 05/18/17 07:00 56 05/18/17 05:20 98.2 68 16 112/63 (79) 98 05/18/17 04:04 100 05/18/17 00:05 70 05/17/17 23:55 97.5 75 16 114/76 (89) 99 05/17/17 21:00 97.8 92 18 110/73 (85) 100 05/17/17 20:27 82 05/18/17 05/18/17 05/19/17 15:00 23:00 07:00 Intake Total 480 ml Output Total 1700 ml Balance -1220 ml Intake Oral 480 ml Output Urine Total 1700 ml # Voids 2 Result Diagram: 05/18/17 0600 05/18/17 0600 Other Results Laboratory Tests Test 05/17/17 05:37 05/18/17 06:00 05/18/17 13:35 White Blood Count 17.6 TH/MM3 14.9 TH/MM3 Red Blood Count 3.67 MIL/MM3 3.36 MIL/MM3 Hemoglobin 9.5 GM/DL 8.6 GM/DL Hematocrit 28.9 % 26.3 % Mean Corpuscular Volume 78.9 FL 78.3 FL Mean Corpuscular Hemoglobin 25.8 PG 25.7 PG Mean Corpuscular Hemoglobin Concent 32.7 % 32.8 % Red Cell Distribution Width 18.6 % 18.5 % Platelet Count 785 TH/MM3 760 TH/MM3 Mean Platelet Volume 6.9 FL 6.6 FL Neutrophils (%) (Auto) 93.7 % 93.9 % Lymphocytes (%) (Auto) 2.7 % 2.8 % Monocytes (%) (Auto) 3.4 % 3.2 % Eosinophils (%) (Auto) 0.0 % 0.0 % Basophils (%) (Auto) 0.2 % 0.1 % Neutrophils # (Auto) 16.5 TH/MM3 13.9 TH/MM3 Lymphocytes # (Auto) 0.5 TH/MM3 0.4 TH/MM3 Monocytes # (Auto) 0.6 TH/MM3 0.5 TH/MM3 Eosinophils # (Auto) 0.0 TH/MM3 0.0 TH/MM3 Basophils # (Auto) 0.0 TH/MM3 0.0 TH/MM3 CBC Comment DIFF FINAL DIFF FINAL Differential Comment Blood Urea Nitrogen 10 MG/DL 16 MG/DL Creatinine 0.58 MG/DL 0.59 MG/DL Random Glucose 145 MG/DL 119 MG/DL Total Protein 7.3 GM/DL 6.7 GM/DL Albumin 2.2 GM/DL 2.3 GM/DL Calcium Level 9.0 MG/DL 8.7 MG/DL Alkaline Phosphatase 218 U/L 185 U/L Aspartate Amino Transf (AST/SGOT) 12 U/L 15 U/L Alanine Aminotransferase (ALT/SGPT) 18 U/L 22 U/L Total Bilirubin 0.2 MG/DL 0.2 MG/DL Sodium Level 142 MEQ/L 141 MEQ/L Potassium Level 3.8 MEQ/L 4.3 MEQ/L Chloride Level 107 MEQ/L 105 MEQ/L Carbon Dioxide Level 26.9 MEQ/L 25.6 MEQ/L Anion Gap 8 MEQ/L 10 MEQ/L Estimat Glomerular Filtration Rate 116 ML/MIN 113 ML/MIN Imaging Last Impressions Thoracic Spine MRI 05/13/17 0000 Signed Impressions: Service Date/Time: May 17:55 - CONCLUSION: Signal abnormalities within the T3 and T4 vertebral body and right T4 pedicle with contrast enhancement. There is also T1 prolongation without contrast enhancement in the T8 vertebral body. The appearance is nonspecific but is abnormal and suggests possible metastatic disease. Amrit Machado MD Sacrum/Coccyx MRI 05/13/17 0000 Signed Impressions: Service Date/Time: May 17:55 - CONCLUSION: There are signal abnormalities in the superior S2 and bilateral sacroiliac with T2 prolongation and contrast enhancement. This suggests the possibility of metastatic lesions. Amrit Machado MD Lumbar Spine MRI 05/13/17 0000 Signed Impressions: Service Date/Time: May 17:55 - CONCLUSION: 1. No evidence of disc bulge or protrusion. 2. Triangular shaped area of T2 prolongation in the anterior inferior L1 vertebral body with correlating enhancement on the postcontrast study. This of uncertain significance, but would be an unusual shape and location for a metastatic lesion. Amrit Machado MD Abdomen X-Ray 05/13/17 0000 Signed Impressions: Service Date/Time: May 15:26 - CONCLUSION: Moderate stool throughout the colon. Otherwise, benign-appearing abdomen. Guy Arzola MD Hip and Pelvis X-Ray 05/12/17 1854 Signed Impressions: Service Date/Time: Friday, May 12, 2017 19:11 - CONCLUSION: Negative evaluation of the left hip. Amrit Machado MD Outpt Chest CT W/W/O IV contrast (05/07/17): - Innumerable masses scattered throughout the lungs. Numerous lymph nodes throughout the mediastinum and both hilar regions Outpt CT Abd/pelvis W/W/O contrast (05/07/17): - There is widespread metastatic disease throughout the spleen, the liver and the retroperitoneum. Lymphoma most likely diagnosis versus conceivably melanoma or breast cancer. - Indeterminate sclerotic lesion in T12. - Liver with 2.7cm low-density lesion in the lateral segment of the left lobe of the liver. At least 5 other low-density lesions scattered throughout the liver concerning for metastatic disease. - Spleen is markedly heterogenous appearance with multiple masses. - Retroperitoneum with 2.2cm left periaortic lymph node below the left renal vein. At least 3 other retroperitoneal lymph nodes are present. - 3.0 x 1.6cm right inguinal lymph node. Some internal obturator lymphadenopathy on the right as well. Objective Remarks General: NAD, AAOx3 Chest: CTA Cardiac: Regular Abd: +BS, soft ND/NT Ext: No edema A/P Problem List: (1) Hodgkin lymphoma ICD Codes: C81.90 - Hodgkin lymphoma, unspecified, unspecified site Status: Acute Plan: - Pt had reported unintentional weight loss ~20lbs since 03/2017, night sweats and had outpt CT Chest/Abd/Pelvis on 05/07/17 - Outpt Chest CT W/W/O IV contrast (05/07/17): - Innumerable masses scattered throughout the lungs. Numerous lymph nodes throughout the mediastinum and both hilar regions - Outpt CT Abd/pelvis W/W/O contrast (05/07/17): - There is widespread metastatic disease throughout the spleen, the liver and the retroperitoneum. Lymphoma most likely diagnosis versus conceivably melanoma or breast cancer. - Indeterminate sclerotic lesion in T12. - Liver with 2.7cm low-density lesion in the lateral segment of the left lobe of the liver. At least 5 other low-density lesions scattered throughout the liver concerning for metastatic disease. - Spleen is markedly heterogenous appearance with multiple masses. - Retroperitoneum with 2.2cm left periaortic lymph node below the left renal vein. At least 3 other retroperitoneal lymph nodes are present. - 3.0 x 1.6cm right inguinal lymph node. Some internal obturator lymphadenopathy on the right as well. - Pt underwent outpt CT guided liver biopsy and US guided LN biopsy on 05/12/17. - AFP, CA-19-9, CEA, Ca 125 are WNL - TSH, Free T4 are WNL - Pt has been having increased pain in her tailbone and back more recently. - Thoracic Spine MRI (05/13/17) --> Signal abnormalities within the T3 and T4 vertebral body and right T4 pedicle with contrast enhancement. There is also T1 prolongation without contrast enhancement in the T8 vertebral body. The appearance is nonspecific but is abnormal and suggests possible metastatic disease. - Lumbar Spine MRI (05/13/17) --> No evidence of disc bulge or protrusion. Triangular shaped area of T2 prolongation in the anterior inferior L1 vertebral body with correlating enhancement on the postcontrast study. This of uncertain significance, but would be an unusual shape and location for a metastatic lesion. - Sacral spine MRI (05/13/17) --> There are signal abnormalities in the superior S2 and bilateral sacroiliac with T2 prolongation and contrast enhancement. This suggests the possibility of metastatic lesions. - Pathology from lymph nodes shows classic Hodgkin lymphoma. liver bx nondiagnostic - Consulted Dr Butcher. He has discussed with pt and family and chemotherapy planned immediately. - Cont pain control and titrate as needed. Pt is on MS Contin 30mg Q8H, [place] 5/ 325 Q4H PRN, Dilaudid IV 2mg Q3H PRN. Oramorph increased to 60mg PO TID on 05/18 and Ativan 0.5mg IV PRN added for anxiety on 05/18 - Decadron 4mg IV Q6H started on 05/16 - Trial of Neurontin 300mg TID started on 05/16 - 2D echo (05/15/17): - LV systolic function hyperdynamic with estimated EF 65-70% - Trace to mild tricuspid valve regurgitation - Estimated PA pressure 37.2mmHg - Pt had PFT with DLCO on 05/17 - Pketol-v-Rvcm placement on 05/17 - BM biopsy on 05/18, pathology pending. - Pt to start chemo induction tomorrow (2) Symptomatic anemia ICD Codes: D64.9 - Anemia, unspecified Status: Acute Plan: - Pt is a 37 y/o female who was sent to the ED by her PCP for worsening anemia and leukocytosis on outpt labs. - Pt reported various complaints at the time of admission, including weight loss (Approx 20lbs in the last 3 months), intermittent dizziness, fevers, "bone pain", night sweats. - Pts outpt H/H has decreased to Hgb 7.4/Hct 22.8, MCV 77, MCH 25 on 05/11/17 and was recommended to report to the ED for further eval. - Pt had previously reported intermittent black stools and was noted to be Hemoccult positive in the ED. - She was seen by GI in 04/2016 and had an EGD with dilation for complaints of dysphagia and odynophagia. The EGD noted gastritis/superficial ulceration of the antrum, esophagitis in the distal esophagus, and food bolus in the stomach. - Pt was planned for outpt evaluation with colonoscopy which had not been performed yet. - Pt has family hx of colon cancer, father. - She has received 2 units of PRBCs at admission with H/H improving and stable - GI following - Pt had EGD on 05/14/17 which was negative. - Pt refused the colonoscopy - Monitor H/H - PPI - Supportive care (3) Fever ICD Codes: R50.9 - Fever, unspecified Status: Acute Plan: - Pt has had reported night sweats and was noted to have fevers prior to admission - Blood cultures taken in the ED with NGTD - UA was negative - [place] to most likely be related to tumor fever or related to malignancy, no obvious signs of infection - Tylenol PRN (4) Weight loss, unintentional ICD Codes: R63.4 - Abnormal weight loss Status: Acute Plan: - See above. (5) Back pain ICD Codes: M54.9 - Dorsalgia, unspecified Status: Acute Plan: - Pt has been having increased pain in her tailbone and back more recently likely related to bone mets. - See above (6) Liver mass ICD Codes: R16.0 - Hepatomegaly, not elsewhere classified Plan: - Outpt biopsy was nondiagnostic Assessment and Plan Patient examined. Assessment and plan formulated with Devi Gallego PA-C. I agree with the above. Case d/w Dr. Lima (05/18). Pt to start chemotherapy 05/19. Pt was in good spirits. Devi Gallego May 18, 2017 18:33 Marcelo Brumfield DO May 19, 2017 11:30
[2017-05-18] MEDS: LACTULOSE SYRUP 20 GM/30 ML CUP PO SCH (19:38)
[2017-05-18] MEDS ORDERED: IRON SUCROSE INJ 100 MG in SODIUM CHLORIDE 0.9% INJ 100 ML IV ONE (20:00)
[2017-05-18 23:54] LABS: MITOCHONDRIAL ABS LESS THAN 20.0 U (<=20.0)
[2017-05-19] VITALS (27 sets, daily range): BP systolic 105–125; BP diastolic 59–71; PULSE 51–116; RESP 16–18; TEMP 97.2–98.3; O2SAT 97–99
[2017-05-19] MEDS: DEXAMETHASONE SOD PHOS 4 MG/ML VIAL IV PUSH SCH ×5 (00:02→23:44)
[2017-05-19] MEDS: MORPHINE SULFATE 30 MG CONTROLLED RELEASE TAB PO SCH ×3 (02:24→19:41)
[2017-05-19] MEDS: HYDROmorphone HCL PF 2 MG/ML VIAL IV PUSH PRN ×8 (02:25→23:44)
[2017-05-19] MEDS: hydrOXYzine HCL 25 MG TAB PO SCH ×4 (02:32→20:04)
[2017-05-19 05:12] LABS: AUTOMATED NEUTROPHIL # 15.9 TH/MM3 (1.8-7.7); BASOPHIL % 0.1 % (0.0-2.0); HEMATOCRIT 30.2 % (35.0-46.0); HEMOGLOBIN 9.7 GM/DL (11.6-15.3); LYMPH % 1.9 % (9.0-44.0); LYMPHOCYTE # 0.3 TH/MM3 (1.0-4.8); MEAN CELL VOLUME 78.9 FL (80.0-100.0); MEAN CORPUSCULAR HEMOGLOBIN 25.3 PG (27.0-34.0); MEAN CORPUSCULAR HGB CONC 32.1 % (32.0-36.0); MEAN PLATELET VOLUME 6.8 FL (7.0-11.0); MONO % 3.3 % (0.0-8.0); MONOCYTE # 0.6 TH/MM3 (0-0.9); NEUT % 94.7 % (16.0-70.0); PLATELET COUNT 925 TH/MM3 (150-450); RED BLOOD COUNT 3.82 MIL/MM3 (4.00-5.30); WHITE BLOOD COUNT 16.8 TH/MM3 (4.0-11.0)
[2017-05-19 05:26] LABS: BICARBONATE 25.5 MEQ/L (21.0-32.0); CALCIUM 9.1 MG/DL (8.5-10.1); CREATININE 0.64 MG/DL (0.50-1.00)
[2017-05-19] MEDS: MAGNESIUM HYDROXIDE SUSP 30 ML CUP PO PRN (05:38)
[2017-05-19] MEDS: PANTOPRAZOLE SODIUM 40 MG VIAL IV PUSH SCH (08:15)
[2017-05-19] MEDS: SODIUM CHLORIDE 0.9% FLUSH 10 ML FLUSH IV FLUSH SCH ×2 (08:17→20:49)
[2017-05-19] MEDS: DOCUSATE SODIUM 50 MG/SENNA 8.6 MG TAB PO SCH ×2 (08:17→20:47)
[2017-05-19] MEDS: LACTULOSE SYRUP 20 GM/30 ML CUP PO SCH (08:17)
[2017-05-19] MEDS: ALLOPURINOL 300 MG TAB PO SCH (08:17)
[2017-05-19] MEDS: GABAPENTIN 300 MG CAP PO SCH ×3 (08:17→19:41)
[2017-05-19] MEDS ORDERED: SODIUM CHLOR 0.9% 250 ML INJ 250 ML IV ONE (09:00)
[2017-05-19] MEDS ORDERED: ACETAMINOPHEN 325 MG TAB PO ONE (09:00)
[2017-05-19] MEDS ORDERED: GRANISETRON HCL 1 MG/ML VIAL IV ONE (09:30)
[2017-05-19] MEDS ORDERED: DEXAMETHASONE INJ 20 MG in SODIUM CHLORIDE 0.9% INJ 50 ML IV ONE (09:30)
[2017-05-19] MEDS ORDERED: BLEOMYCIN SULFATE 15 UNIT VIAL SQ ONE (10:00)
[2017-05-19] MEDS ORDERED: DOXORUBICIN IV ONE (10:00)
[2017-05-19] MEDS ORDERED: BLEOMYCIN IV PUSH ONE (10:10)
[2017-05-19] MEDS ORDERED: SODIUM CHLORIDE 0.9% IV ONE (10:20)
[2017-05-19] MEDS ORDERED: VINBLASTINE IV ONE (10:20)
[2017-05-19] MEDS ORDERED: SODIUM CHLOR 0.9% IV ONE (10:30)
[2017-05-19] MEDS ORDERED: DACARBAZINE IV ONE (10:30)
--- NOTE | 2017-05-19 11:17 | RADRPT ---
EXAM DATE/TIME: 05/19/2017 09:22 [facility] COMPARISON: No previous studies available for comparison. INDICATIONS : Constipation. Severe abdominal pain. MEDICAL HISTORY : Hodgkins lymphoma SURGICAL HISTORY : Ovarian cyst removal ENCOUNTER: Subsequent ACUITY: 1 week PAIN SCORE: 10/10 LOCATION: abdomen FINDINGS: Supine view of the abdomen was performed. The abdominal bowel gas pattern is normal except mild cons tipation. No abnormal masses, calcifications, or organomegaly is seen. The osseous structures are u nremarkable. CONCLUSION: 1. Mild constipation. No acute findings. Jeffery Tomas MD on May 19, 2017 at 11:14 Board Certified Radiologist. This report was verified electronically.
--- NOTE | 2017-05-19 11:32 | HHI.PR ---
Subjective Remarks Pt anxious this AM. Pt also painful at port site and LBP. Objective Vitals Vital Signs Date Time Temp Pulse Resp B/P (MAP) Pulse Ox O2 Delivery O2 Flow Rate FiO2 05/19/17 08:00 97.5 65 18 105/68 (80) 99 05/19/17 05:00 54 05/19/17 04:35 98.3 70 16 118/71 (87) 97 05/19/17 04:05 78 05/19/17 03:00 88 05/19/17 02:00 60 05/19/17 01:00 58 05/19/17 00:11 64 05/19/17 00:02 97.7 86 16 112/69 (83) 97 05/18/17 23:00 92 05/18/17 22:00 66 05/18/17 21:00 64 05/18/17 20:42 98.3 66 16 103/66 (78) 97 05/18/17 20:12 78 05/18/17 19:00 70 05/18/17 17:00 112 05/18/17 15:40 68 18 110/68 (82) 96 05/18/17 15:10 63 18 123/66 (85) 96 05/18/17 14:55 97.3 73 18 119/67 (84) 95 05/18/17 13:00 86 05/18/17 12:15 97.7 89 20 105/60 (75) 97 108/70 (83) 05/18/17 12:00 74 Result Diagram: 05/19/17 0430 05/19/17 0430 Imaging Last Impressions Thoracic Spine MRI 05/13/17 0000 Signed Impressions: Service Date/Time: May 17:55 - CONCLUSION: Signal abnormalities within the T3 and T4 vertebral body and right T4 pedicle with contrast enhancement. There is also T1 prolongation without contrast enhancement in the T8 vertebral body. The appearance is nonspecific but is abnormal and suggests possible metastatic disease. Amrit Machado MD Sacrum/Coccyx MRI 05/13/17 0000 Signed Impressions: Service Date/Time: May 17:55 - CONCLUSION: There are signal abnormalities in the superior S2 and bilateral sacroiliac with T2 prolongation and contrast enhancement. This suggests the possibility of metastatic lesions. Amrit Machado MD Lumbar Spine MRI 05/13/17 0000 Signed Impressions: Service Date/Time: May 17:55 - CONCLUSION: 1. No evidence of disc bulge or protrusion. 2. Triangular shaped area of T2 prolongation in the anterior inferior L1 vertebral body with correlating enhancement on the postcontrast study. This of uncertain significance, but would be an unusual shape and location for a metastatic lesion. Amrit Machado MD Abdomen X-Ray 05/13/17 0000 Signed Impressions: Service Date/Time: May 15:26 - CONCLUSION: Moderate stool throughout the colon. Otherwise, benign-appearing abdomen. Guy Arzola MD Hip and Pelvis X-Ray 05/12/17 1854 Signed Impressions: Service Date/Time: Friday, May 12, 2017 19:11 - CONCLUSION: Negative evaluation of the left hip. Amrit Machado MD Outpt Chest CT W/W/O IV contrast (05/07/17): - Innumerable masses scattered throughout the lungs. Numerous lymph nodes throughout the mediastinum and both hilar regions Outpt CT Abd/pelvis W/W/O contrast (05/07/17): - There is widespread metastatic disease throughout the spleen, the liver and the retroperitoneum. Lymphoma most likely diagnosis versus conceivably melanoma or breast cancer. - Indeterminate sclerotic lesion in T12. - Liver with 2.7cm low-density lesion in the lateral segment of the left lobe of the liver. At least 5 other low-density lesions scattered throughout the liver concerning for metastatic disease. - Spleen is markedly heterogenous appearance with multiple masses. - Retroperitoneum with 2.2cm left periaortic lymph node below the left renal vein. At least 3 other retroperitoneal lymph nodes are present. - 3.0 x 1.6cm right inguinal lymph node. Some internal obturator lymphadenopathy on the right as well. Objective Remarks General: NAD, AAOx3 Chest: CTA Cardiac: Regular Abd: +BS, soft ND/NT Ext: No edema A/P Problem List: (1) Hodgkin lymphoma ICD Codes: C81.90 - Hodgkin lymphoma, unspecified, unspecified site Status: Acute Plan: - Pt had reported unintentional weight loss ~20lbs since 03/2017, night sweats and had outpt CT Chest/Abd/Pelvis on 05/07/17 - Outpt Chest CT W/W/O IV contrast (05/07/17): - Innumerable masses scattered throughout the lungs. Numerous lymph nodes throughout the mediastinum and both hilar regions - Outpt CT Abd/pelvis W/W/O contrast (05/07/17): - There is widespread metastatic disease throughout the spleen, the liver and the retroperitoneum. Lymphoma most likely diagnosis versus conceivably melanoma or breast cancer. - Indeterminate sclerotic lesion in T12. - Liver with 2.7cm low-density lesion in the lateral segment of the left lobe of the liver. At least 5 other low-density lesions scattered throughout the liver concerning for metastatic disease. - Spleen is markedly heterogenous appearance with multiple masses. - Retroperitoneum with 2.2cm left periaortic lymph node below the left renal vein. At least 3 other retroperitoneal lymph nodes are present. - 3.0 x 1.6cm right inguinal lymph node. Some internal obturator lymphadenopathy on the right as well. - Pt underwent outpt CT guided liver biopsy and US guided LN biopsy on 05/12/17. - AFP, CA-19-9, CEA, Ca 125 are WNL - TSH, Free T4 are WNL - Pt has been having increased pain in her tailbone and back more recently. - Thoracic Spine MRI (05/13/17) --> Signal abnormalities within the T3 and T4 vertebral body and right T4 pedicle with contrast enhancement. There is also T1 prolongation without contrast enhancement in the T8 vertebral body. The appearance is nonspecific but is abnormal and suggests possible metastatic disease. - Lumbar Spine MRI (05/13/17) --> No evidence of disc bulge or protrusion. Triangular shaped area of T2 prolongation in the anterior inferior L1 vertebral body with correlating enhancement on the postcontrast study. This of uncertain significance, but would be an unusual shape and location for a metastatic lesion. - Sacral spine MRI (05/13/17) --> There are signal abnormalities in the superior S2 and bilateral sacroiliac with T2 prolongation and contrast enhancement. This suggests the possibility of metastatic lesions. - Pathology from lymph nodes shows classic Hodgkin lymphoma. liver bx nondiagnostic - Consulted Dr Butcher. He has discussed with pt and family and chemotherapy planned immediately. - Cont pain control and titrate as needed. Pt is on MS Contin 30mg Q8H, [place] 5/ 325 Q4H PRN, Dilaudid IV 2mg Q3H PRN. Oramorph increased to 60mg PO TID on 05/18 and Ativan 0.5mg IV PRN added for anxiety on 05/18 - Decadron 4mg IV Q6H started on 05/16 - Trial of Neurontin 300mg TID started on 05/16 - 2D echo (05/15/17): - LV systolic function hyperdynamic with estimated EF 65-70% - Trace to mild tricuspid valve regurgitation - Estimated PA pressure 37.2mmHg - Pt had PFT with DLCO on 05/17 - Qmxhcd-c-Ywck placement on 05/17 - BM biopsy on 05/18, pathology pending. - Pt to start chemotherapy today. - If pain is controlled, then anticipate d/c to home 05/19/17 (2) Symptomatic anemia ICD Codes: D64.9 - Anemia, unspecified Status: Acute Plan: - Pt is a 37 y/o female who was sent to the ED by her PCP for worsening anemia and leukocytosis on outpt labs. - Pt reported various complaints at the time of admission, including weight loss (Approx 20lbs in the last 3 months), intermittent dizziness, fevers, "bone pain", night sweats. - Pts outpt H/H has decreased to Hgb 7.4/Hct 22.8, MCV 77, MCH 25 on 05/11/17 and was recommended to report to the ED for further eval. - Pt had previously reported intermittent black stools and was noted to be Hemoccult positive in the ED. - She was seen by GI in 04/2016 and had an EGD with dilation for complaints of dysphagia and odynophagia. The EGD noted gastritis/superficial ulceration of the antrum, esophagitis in the distal esophagus, and food bolus in the stomach. - Pt was planned for outpt evaluation with colonoscopy which had not been performed yet. - Pt has family hx of colon cancer, father. - She has received 2 units of PRBCs at admission with H/H improving and stable - GI following - Pt had EGD on 05/14/17 which was negative. - Pt refused the colonoscopy - Monitor H/H - PPI - Supportive care (3) Fever ICD Codes: R50.9 - Fever, unspecified Status: Acute Plan: - Pt has had reported night sweats and was noted to have fevers prior to admission - Blood cultures taken in the ED with NGTD - UA was negative - [place] to most likely be related to tumor fever or related to malignancy, no obvious signs of infection - Tylenol PRN (4) Weight loss, unintentional ICD Codes: R63.4 - Abnormal weight loss Status: Acute Plan: - See above. (5) Back pain ICD Codes: M54.9 - Dorsalgia, unspecified Status: Acute Plan: - Pt has been having increased pain in her tailbone and back more recently likely related to bone mets. - See above (6) Liver mass ICD Codes: R16.0 - Hepatomegaly, not elsewhere classified Plan: - Outpt biopsy was nondiagnostic Marcelo Brumfield DO May 19, 2017 11:32
[2017-05-19] MEDS: hydrOXYzine HCL 25 MG TAB PO PRN (12:44)
--- NOTE | 2017-05-19 13:00 | PD.ONC.PN ---
Subjective Subjective Remarks Anxious about chemo but ready to start. Wants to try CBD oil- advised not on the day of chemo. STill has itching. Objective Data Date Time Temp Pulse Resp B/P (MAP) Pulse Ox O2 Delivery O2 Flow Rate FiO2 05/19/17 08:46 18 05/19/17 08:00 97.5 65 18 105/68 (80) 99 05/19/17 05:00 54 05/19/17 04:35 98.3 70 16 118/71 (87) 97 05/19/17 04:05 78 05/19/17 03:00 88 05/19/17 02:00 60 05/19/17 01:00 58 05/19/17 00:11 64 05/19/17 00:02 97.7 86 16 112/69 (83) 97 05/18/17 23:00 92 05/18/17 22:00 66 05/18/17 21:00 64 05/18/17 20:42 98.3 66 16 103/66 (78) 97 05/18/17 20:12 78 05/18/17 19:00 70 05/18/17 17:00 112 05/18/17 15:40 68 18 110/68 (82) 96 05/18/17 15:10 63 18 123/66 (85) 96 05/18/17 14:55 97.3 73 18 119/67 (84) 95 05/18/17 13:00 86 05/19/17 05/19/17 05/19/17 07:00 15:00 23:00 Output Total 1200 ml Balance -1200 ml Result Diagram: 05/19/1742905/19/17 043 Laboratory Results Laboratory Tests Test 05/18/17 13:35 05/19/17 04:30 White Blood Count 16.8 TH/MM3 Red Blood Count 3.82 MIL/MM3 Hemoglobin 9.7 GM/DL Hematocrit 30.2 % Mean Corpuscular Volume 78.9 FL Mean Corpuscular Hemoglobin 25.3 PG Mean Corpuscular Hemoglobin Concent 32.1 % Red Cell Distribution Width 19.0 % Platelet Count 925 TH/MM3 Mean Platelet Volume 6.8 FL Neutrophils (%) (Auto) 94.7 % Lymphocytes (%) (Auto) 1.9 % Monocytes (%) (Auto) 3.3 % Eosinophils (%) (Auto) 0.0 % Basophils (%) (Auto) 0.1 % Neutrophils # (Auto) 15.9 TH/MM3 Lymphocytes # (Auto) 0.3 TH/MM3 Monocytes # (Auto) 0.6 TH/MM3 Eosinophils # (Auto) 0.0 TH/MM3 Basophils # (Auto) 0.0 TH/MM3 CBC Comment AUTO DIFF Differential Comment AUTO DIFF CONFIRMED Blood Urea Nitrogen 14 MG/DL Creatinine 0.64 MG/DL Random Glucose 183 MG/DL Calcium Level 9.1 MG/DL Uric Acid 2.1 MG/DL Lactate Dehydrogenase 140 U/L Sodium Level 139 MEQ/L Potassium Level 4.0 MEQ/L Chloride Level 104 MEQ/L Carbon Dioxide Level 25.5 MEQ/L Anion Gap 10 MEQ/L Estimat Glomerular Filtration Rate 103 ML/MIN Imaging Studies Last 24 hours Impressions Abdomen X-Ray 05/19/17 0800 Signed Impressions: Service Date/Time: Friday, May 19, 2017 09:22 - CONCLUSION: 1. Mild constipation. No acute findings. Jeffery Tomas MD Administered Medications Medications (Trade) Dose Ordered Sig/Yasir Route PRN Reason Start Time Stop Time Status Last Admin Dose Admin Sodium Chloride (NS Flush) 2 ml BID IV FLUSH 05/13/17 09:00 05/19/17 08:17 Acetaminophen (Tylenol) 650 mg Q4H PRN PO TEMP > 100.4 05/12/17 21:30 05/15/17 23:25 Senna/Docusate Sodium ([place]-Colace) 1 tab BID PO 05/13/17 09:00 05/19/17 08:17 Magnesium Hydroxide (Milk Of Magnesia Liq) 30 ml Q12H PRN PO Mild constipation 05/12/17 21:30 05/19/17 05:38 Lactulose (Lactulose Liq) 30 ml DAILY PRN PO SEVERE CONSITIPATION 05/12/17 21:30 05/13/17 16:22 Acetaminophen/ Hydrocodone Bitart ([place] 5-325 Mg) 1 tab Q4H PRN PO pain 2-5 05/13/17 15:15 05/14/17 19:50 Allopurinol (Zyloprim) 300 mg DAILY PO 05/16/17 09:00 05/19/17 08:17 Dexamethasone Sodium Phosphate (Decadron Inj) 4 mg Q6HR IV PUSH 05/16/17 00:00 05/19/17 05:33 Gabapentin (Neurontin) 300 mg TID PO 05/16/17 09:00 05/19/17 12:44 Hydroxyzine HCl (Atarax) 25 mg Q6H PO 05/16/17 09:00 05/19/17 08:16 Hydroxyzine HCl (Atarax) 25 mg Q6H PRN PO breakthrough itch 05/16/17 09:00 05/19/17 12:44 Hydromorphone HCl (Dilaudid Pf Inj) 2 mg Q3H PRN IV PUSH pain 6-10 05/16/17 17:45 05/19/17 11:28 Vancomycin HCl 1000 mg/Sodium Chloride 250 ml @ 250 mls/hr STRIP POLISHER IV 05/17/17 08:15 05/21/17 08:14 05/17/17 13:29 Cefazolin Sodium/ Dextrose 50 ml @ 100 mls/hr STRIP POLISHER IV 05/17/17 08:15 05/21/17 08:14 05/17/17 15:04 Pantoprazole Sodium (Protonix Inj) 40 mg Q24H IV PUSH 05/18/17 09:00 05/19/17 08:15 Morphine Sulfate (Oramorph Sr) 60 mg Q8H PO 05/18/17 10:00 05/19/17 08:17 Lorazepam (Ativan Inj) 0.5 mg Q6H PRN IV PUSH ANXIETY OR INSOMNIA 05/18/17 09:00 05/19/17 12:36 Lactulose (Lactulose Liq) 30 ml DAILY PO 05/18/17 19:00 05/19/17 08:17 Objective Remarks GENERAL: Well-nourished, Cachectic. SKIN: Warm and dry. R chest wall port. HEAD: Normocephalic. EYES: No scleral icterus. No injection or drainage. NECK: Supple, trachea midline. No JVD or lymphadenopathy. LYMPHATIC: No adenopathy. CARDIOVASCULAR: Regular rate and rhythm without murmurs. RESPIRATORY: Breath sounds equal bilaterally. No accessory muscle use. GASTROINTESTINAL: Abdomen soft, non-tender, nondistended. EXTREMITIES: No cyanosis, or edema. MUSCULOSKELETAL: Adequate muscle tone. NEUROLOGICAL: No obvious focal deficit. Awake, alert, and oriented x3. Assessment/Plan Problem List: (1) Hodgkin lymphoma ICD Codes: C81.90 - Hodgkin lymphoma, unspecified, unspecified site Status: Acute Plan: 05/19/17 BM biopsy results still pending. Proceed with C1D1 ABVD. Discussed risks and benefits, no more questions at present. 05/18/17: TYPESETTING MACHINE OPERATOR/TENDER oncology consult, bone marrow biopsy today. --HIV negative --Pulmonary function test: VOLUMES DYNAMIC: FVC and FEV1 normal. STATIC: RV and FRC mildly increased; TLC normal. FLOWS: FEV1% normal; FEF 25-75 severely reduced. DIFFUSION: Low normal. IMPRESSION: --Very mild obstructive ventilatory defect in the terminal airways with mild hyperinflation. There is improvement post-bronchodilator. --Echocardiogram shows EF of 65-70% HPI: 4 months ago in February she had developed pneumonia-like symptoms with cough. +running fever. goes up to 103. ++drenching night sweats. lost 20 pounds in the last 4 months. complaining of back pain and severe bone pain. CAT of the chest, abdomen and pelvis was done which showed lymphadenopathy, multiple lesions in the lung, spleen and liver. biopsy of the liver mass and also right inguinal lymph node=classical Hodgkin's lymphoma. --Miladis consulted ([facility]) for possible palliative xrt to painful back lesions : chemotherapy regimen and radiation treatment cannot be delivered at the same time. If her pain is not improving, consider delivering radiation treatment perhaps just prior to her next chemotherapy--could try to limit her radiation treatment to 5 fractions. do not believe she is a candidate for single fraction treatment. (2) Back pain ICD Codes: M54.9 - Dorsalgia, unspecified Status: Acute Plan: 05/19/17. Anticipate pain would improve with treatment. Currently receiving long acting and breakthrough pain medication. Discussed with Dr. Brumfield. 05/18: increase Oramorph to 60mg PO TID, continue Dilaudid IV for breakthrough pain. --on scheduled gabapentin for generalized tingling and burning (3) Insomnia ICD Codes: G47.00 - Insomnia, unspecified Plan: 05/19/17. Anxiety due to chemo. Cont Ativan PRN. Emotional support provided. Sister at bedside. --ativan 0.5mg IV PRN Assessment 37 y/o female admitted with severe back pain with a new diagnosis of classical Hodgkin's lymphoma, high IPS. Plan 1. Cont Oramorph to 60mg PO TID and continue dilaudid for breakthrough 2. Ativan 0.5mg IV PRN anxiety or insomnia. 3. Proceed with ABVD as ordered. 4. Follow bone marrow biopsy results for staging 5. OK for DC and follow up as out pt pending pain control. Tran Lima MD May 19, 2017 13:00
[2017-05-20] VITALS (12 sets, daily range): BP systolic 100–119; BP diastolic 62–70; PULSE 52–112; RESP 16–18; TEMP 97.2–98.4; O2SAT 95–100
[2017-05-20] MEDS: MORPHINE SULFATE 30 MG CONTROLLED RELEASE TAB PO SCH ×3 (02:42→18:09)
[2017-05-20] MEDS: hydrOXYzine HCL 25 MG TAB PO SCH ×4 (02:42→19:31)
[2017-05-20] MEDS: HYDROmorphone HCL PF 2 MG/ML VIAL IV PUSH PRN ×4 (02:44→20:40)
[2017-05-20] MEDS: LACTULOSE SYRUP 20 GM/30 ML CUP PO PRN (02:48)
[2017-05-20] MEDS: hydrOXYzine HCL 25 MG TAB PO PRN (04:12)
[2017-05-20 04:48] LABS: AUTOMATED NEUTROPHIL # 17.9 TH/MM3 (1.8-7.7); BASOPHIL # 0.1 TH/MM3 (0-0.2); BASOPHIL % 0.3 % (0.0-2.0); HEMATOCRIT 29.2 % (35.0-46.0); HEMOGLOBIN 9.9 GM/DL (11.6-15.3); LYMPH % 2.1 % (9.0-44.0); LYMPHOCYTE # 0.4 TH/MM3 (1.0-4.8); MEAN CELL VOLUME 79.4 FL (80.0-100.0); MEAN CORPUSCULAR HEMOGLOBIN 26.9 PG (27.0-34.0); MEAN CORPUSCULAR HGB CONC 33.9 % (32.0-36.0); MONO % 2.8 % (0.0-8.0); MONOCYTE # 0.5 TH/MM3 (0-0.9); NEUT % 94.8 % (16.0-70.0); PLATELET COUNT 810 TH/MM3 (150-450); RED BLOOD COUNT 3.68 MIL/MM3 (4.00-5.30); RED CELL DISTRIBUTION WIDTH 19.1 % (11.6-17.2); WHITE BLOOD COUNT 18.9 TH/MM3 (4.0-11.0)
[2017-05-20 05:14] LABS: BICARBONATE 27.6 MEQ/L (21.0-32.0); CALCIUM 8.8 MG/DL (8.5-10.1); CREATININE 0.57 MG/DL (0.50-1.00)
[2017-05-20] MEDS: DEXAMETHASONE SOD PHOS 4 MG/ML VIAL IV PUSH SCH ×2 (05:45→11:12)
[2017-05-20] MEDS: LACTULOSE SYRUP 20 GM/30 ML CUP PO SCH (09:00)
[2017-05-20] MEDS: DOCUSATE SODIUM 50 MG/SENNA 8.6 MG TAB PO SCH ×2 (09:15→19:31)
[2017-05-20] MEDS: GABAPENTIN 300 MG CAP PO SCH ×3 (09:15→18:07)
[2017-05-20] MEDS: ALLOPURINOL 300 MG TAB PO SCH (09:15)
[2017-05-20] MEDS: PANTOPRAZOLE SODIUM 40 MG VIAL IV PUSH SCH (09:16)
[2017-05-20] MEDS: SODIUM CHLORIDE 0.9% FLUSH 10 ML FLUSH IV FLUSH SCH ×2 (09:17→19:36)
[2017-05-20] MEDS ORDERED: ACETAMINOPHEN/HYDROcodone 325 MG/10 MG TAB PO PRN (10:15)
--- NOTE | 2017-05-20 10:52 | HHI.PR ---
Subjective Remarks Pt having continued difficulties with pain control and anxiety. Objective Vitals Vital Signs Date Time Temp Pulse Resp B/P (MAP) Pulse Ox O2 Delivery O2 Flow Rate FiO2 05/20/17 10:11 55 05/20/17 08:00 97.4 58 18 119/66 (83) 96 05/20/17 06:00 58 05/20/17 05:00 52 05/20/17 04:00 61 05/20/17 04:00 98.4 66 16 116/62 (80) 100 05/20/17 03:00 112 05/20/17 02:00 66 05/20/17 01:00 64 05/20/17 00:00 75 05/20/17 00:00 97.2 64 17 108/66 (80) 100 05/19/17 23:00 84 05/19/17 22:00 74 05/19/17 21:00 78 05/19/17 20:00 67 05/19/17 20:00 97.2 80 16 125/71 (89) 97 05/19/17 19:00 76 05/19/17 19:00 76 05/19/17 18:22 18 05/19/17 18:00 62 05/19/17 17:00 56 05/19/17 17:00 97.8 51 16 120/59 (79) 97 05/19/17 16:35 53 05/19/17 16:00 56 05/19/17 15:30 61 98 05/19/17 15:00 60 05/19/17 14:43 97.4 84 18 118/64 (82) 99 05/19/17 14:00 92 05/19/17 13:00 66 05/19/17 12:00 82 05/19/17 12:00 97.8 66 18 109/69 (82) 98 05/19/17 12:00 72 05/19/17 12:00 82 05/19/17 11:00 60 Result Diagram: 05/20/1740905/20/17 041 Imaging Last Impressions Abdomen X-Ray 05/19/17 0800 Signed Impressions: Service Date/Time: Friday, May 19, 2017 09:22 - CONCLUSION: 1. Mild constipation. No acute findings. Jeffery Tomas MD Bone Biopsy CT 05/18/17 0000 Signed Impressions: Service Date/Time: Thursday, May 18, 2017 14:08 - CONCLUSION: 1. Uncomplicated CT guided bone marrow aspirate. 2. Uncomplicated CT guided bone marrow biopsy. Asaf Diaz MD Port Line Insertion 05/17/17 0000 Signed Impressions: Service Date/Time: Wednesday, May 17, 2017 13:03 - CONCLUSION: Uncomplicated ultrasound and fluoroscopic guided implanted central venous port catheter placement as described in detail above. An 8 [place] [employer] port was placed. Jm Archer MD Thoracic Spine MRI 05/13/17 0000 Signed Impressions: Service Date/Time: May 17:55 - CONCLUSION: Signal abnormalities within the T3 and T4 vertebral body and right T4 pedicle with contrast enhancement. There is also T1 prolongation without contrast enhancement in the T8 vertebral body. The appearance is nonspecific but is abnormal and suggests possible metastatic disease. Amrit Machado MD Sacrum/Coccyx MRI 05/13/17 0000 Signed Impressions: Service Date/Time: May 17:55 - CONCLUSION: There are signal abnormalities in the superior S2 and bilateral sacroiliac with T2 prolongation and contrast enhancement. This suggests the possibility of metastatic lesions. Amrit Machado MD Lumbar Spine MRI 05/13/17 0000 Signed Impressions: Service Date/Time: May 17:55 - CONCLUSION: 1. No evidence of disc bulge or protrusion. 2. Triangular shaped area of T2 prolongation in the anterior inferior L1 vertebral body with correlating enhancement on the postcontrast study. This of uncertain significance, but would be an unusual shape and location for a metastatic lesion. Amrit Machado MD Hip and Pelvis X-Ray 05/12/171853 Signed Impressions: Service Date/Time: Friday, May 12, 2017 19:11 - CONCLUSION: Negative evaluation of the left hip. Amrit Machado MD Objective Remarks General: NAD, AAOx3 Chest: CTA Cardiac: Regular Abd: +BS, soft ND/NT Ext: No edema A/P Problem List: (1) Hodgkin lymphoma ICD Codes: C81.90 - Hodgkin lymphoma, unspecified, unspecified site Status: Acute Plan: - Pt had reported unintentional weight loss ~20lbs since 03/2017, night sweats and had outpt CT Chest/Abd/Pelvis on 05/07/17 - Outpt Chest CT W/W/O IV contrast (05/07/17): - Innumerable masses scattered throughout the lungs. Numerous lymph nodes throughout the mediastinum and both hilar regions - Outpt CT Abd/pelvis W/W/O contrast (05/07/17): - There is widespread metastatic disease throughout the spleen, the liver and the retroperitoneum. Lymphoma most likely diagnosis versus conceivably melanoma or breast cancer. - Indeterminate sclerotic lesion in T12. - Liver with 2.7cm low-density lesion in the lateral segment of the left lobe of the liver. At least 5 other low-density lesions scattered throughout the liver concerning for metastatic disease. - Spleen is markedly heterogenous appearance with multiple masses. - Retroperitoneum with 2.2cm left periaortic lymph node below the left renal vein. At least 3 other retroperitoneal lymph nodes are present. - 3.0 x 1.6cm right inguinal lymph node. Some internal obturator lymphadenopathy on the right as well. - Pt underwent outpt CT guided liver biopsy and US guided LN biopsy on 05/12/17. - AFP, CA-19-9, CEA, Ca 125 are WNL - TSH, Free T4 are WNL - Pt has been having increased pain in her tailbone and back more recently. - Thoracic Spine MRI (05/13/17) --> Signal abnormalities within the T3 and T4 vertebral body and right T4 pedicle with contrast enhancement. There is also T1 prolongation without contrast enhancement in the T8 vertebral body. The appearance is nonspecific but is abnormal and suggests possible metastatic disease. - Lumbar Spine MRI (05/13/17) --> No evidence of disc bulge or protrusion. Triangular shaped area of T2 prolongation in the anterior inferior L1 vertebral body with correlating enhancement on the postcontrast study. This of uncertain significance, but would be an unusual shape and location for a metastatic lesion. - Sacral spine MRI (05/13/17) --> There are signal abnormalities in the superior S2 and bilateral sacroiliac with T2 prolongation and contrast enhancement. This suggests the possibility of metastatic lesions. - Pathology from lymph nodes shows classic Hodgkin lymphoma. liver bx nondiagnostic - Decadron 4mg IV Q6H started on 05/16 - Trial of Neurontin 300mg TID started on 05/16 - 2D echo (05/15/17): - LV systolic function hyperdynamic with estimated EF 65-70% - Trace to mild tricuspid valve regurgitation - Estimated PA pressure 37.2mmHg - Pt had PFT with DLCO on 05/17 - Krqfdd-d-Pzho placement on 05/17 - BM biopsy on 05/18, pathology pending. - Pt received chemotherapy (05/19/17) - Oramorph 60mg TID - [place] 1-2 tab prn & dilaudid q6h prn breakthrough pain - case d/w nursing. Try to to utilize PO medication only. - Xanax prn anxiety - If pain is controlled, will discharge to home 05/21/17 (2) Symptomatic anemia ICD Codes: D64.9 - Anemia, unspecified Status: Acute Plan: - Pt is a 37 y/o female who was sent to the ED by her PCP for worsening anemia and leukocytosis on outpt labs. - Pt reported various complaints at the time of admission, including weight loss (Approx 20lbs in the last 3 months), intermittent dizziness, fevers, "bone pain", night sweats. - Pts outpt H/H has decreased to Hgb 7.4/Hct 22.8, MCV 77, MCH 25 on 05/11/17 and was recommended to report to the ED for further eval. - Pt had previously reported intermittent black stools and was noted to be Hemoccult positive in the ED. - She was seen by GI in 04/2016 and had an EGD with dilation for complaints of dysphagia and odynophagia. The EGD noted gastritis/superficial ulceration of the antrum, esophagitis in the distal esophagus, and food bolus in the stomach. - Pt was planned for outpt evaluation with colonoscopy which had not been performed yet. - Pt has family hx of colon cancer, father. - She has received 2 units of PRBCs at admission with H/H improving and stable - GI following - Pt had EGD on 05/14/17 which was negative. - Pt refused the colonoscopy - Monitor H/H - PPI - Supportive care (3) Fever ICD Codes: R50.9 - Fever, unspecified Status: Acute Plan: - Pt has had reported night sweats and was noted to have fevers prior to admission - Blood cultures taken in the ED with NGTD - UA was negative - [place] to most likely be related to tumor fever or related to malignancy, no obvious signs of infection - Tylenol PRN (4) Weight loss, unintentional ICD Codes: R63.4 - Abnormal weight loss Status: Acute Plan: - See above. (5) Back pain ICD Codes: M54.9 - Dorsalgia, unspecified Status: Acute Plan: - Pt has been having increased pain in her tailbone and back more recently likely related to bone mets. - See above (6) Liver mass ICD Codes: R16.0 - Hepatomegaly, not elsewhere classified Plan: - Outpt biopsy was nondiagnostic Problem Qualifiers (1) Hodgkin lymphoma: Marcelo Brumfield DO May 20, 2017 10:52
[2017-05-20] MEDS ORDERED: POLYETHYLENE GLYCOL 17 GM PKG PO SCH (11:00)
[2017-05-20] MEDS ORDERED: LACTULOSE SYRUP 20 GM/30 ML CUP PO PRN (11:00)
[2017-05-20] MEDS ORDERED: METHYLNALTREXONE BROMIDE 12 MG/0.6 ML VIAL SQ ONE (11:00)
--- NOTE | 2017-05-20 11:08 | PD.ONC.PN ---
Subjective Subjective Remarks Afebrile overnight. Patient still having pain and needing breakthrough pain medication. Still having itching. states the burning in her back has improved significantly. she is having constipation. she had a problem with constipation before starting opiates and states it has worsened since being in the hospital. had a very small bowel movement yesterday. Objective Data Date Time Temp Pulse Resp B/P (MAP) Pulse Ox O2 Delivery O2 Flow Rate FiO2 05/20/17 10:11 55 05/20/17 08:00 97.4 58 18 119/66 (83) 96 05/20/17 06:00 58 05/20/17 05:00 52 05/20/17 04:00 61 05/20/17 04:00 98.4 66 16 116/62 (80) 100 05/20/17 03:00 112 05/20/17 02:00 66 05/20/17 01:00 64 05/20/17 00:00 75 05/20/17 00:00 97.2 64 17 108/66 (80) 100 05/19/17 23:00 84 05/19/17 22:00 74 05/19/17 21:00 78 05/19/17 20:00 67 05/19/17 20:00 97.2 80 16 125/71 (89) 97 05/19/17 19:00 76 05/19/17 19:00 76 05/19/17 18:22 18 05/19/17 18:00 62 05/19/17 17:00 56 05/19/17 17:00 97.8 51 16 120/59 (79) 97 05/19/17 16:35 53 05/19/17 16:00 56 05/19/17 15:30 61 98 05/19/17 15:00 60 05/19/17 14:43 97.4 84 18 118/64 (82) 99 05/19/17 14:00 92 05/19/17 13:00 66 05/19/17 12:00 82 05/19/17 12:00 97.8 66 18 109/69 (82) 98 05/19/17 12:00 72 05/19/17 12:00 82 05/20/17 05/20/17 05/20/17 07:00 15:00 23:00 Intake Total 1680 ml Output Total 3300 ml Balance -1620 ml Result Diagram: 05/20/170 05/20/17 0410 Laboratory Results Laboratory Tests Test 05/20/17 04:10 White Blood Count 18.9 TH/MM3 Red Blood Count 3.68 MIL/MM3 Hemoglobin 9.9 GM/DL Hematocrit 29.2 % Mean Corpuscular Volume 79.4 FL Mean Corpuscular Hemoglobin 26.9 PG Mean Corpuscular Hemoglobin Concent 33.9 % Red Cell Distribution Width 19.1 % Platelet Count 810 TH/MM3 Mean Platelet Volume 7.0 FL Neutrophils (%) (Auto) 94.8 % Lymphocytes (%) (Auto) 2.1 % Monocytes (%) (Auto) 2.8 % Eosinophils (%) (Auto) 0.0 % Basophils (%) (Auto) 0.3 % Neutrophils # (Auto) 17.9 TH/MM3 Lymphocytes # (Auto) 0.4 TH/MM3 Monocytes # (Auto) 0.5 TH/MM3 Eosinophils # (Auto) 0.0 TH/MM3 Basophils # (Auto) 0.1 TH/MM3 CBC Comment DIFF FINAL Differential Comment Blood Urea Nitrogen 12 MG/DL Creatinine 0.57 MG/DL Random Glucose 129 MG/DL Calcium Level 8.8 MG/DL Uric Acid 2.3 MG/DL Lactate Dehydrogenase 242 U/L Sodium Level 141 MEQ/L Potassium Level 4.1 MEQ/L Chloride Level 105 MEQ/L Carbon Dioxide Level 27.6 MEQ/L Anion Gap 8 MEQ/L Estimat Glomerular Filtration Rate 118 ML/MIN Administered Medications Medications (Trade) Dose Ordered Sig/Yasir Route PRN Reason Start Time Stop Time Status Last Admin Dose Admin Sodium Chloride (NS Flush) 2 ml BID IV FLUSH 05/13/17 09:00 05/20/17 09:17 Acetaminophen (Tylenol) 650 mg Q4H PRN PO TEMP > 100.4 05/12/17 21:30 05/15/17 23:25 Senna/Docusate Sodium (Cary-Colace) 1 tab BID PO 05/13/17 09:00 05/20/17 09:15 Magnesium Hydroxide (Milk Of Magnesia Liq) 30 ml Q12H PRN PO Mild constipation 05/12/17 21:30 05/19/17 05:38 Lactulose (Lactulose Liq) 30 ml DAILY PRN PO SEVERE CONSITIPATION 05/12/17 21:30 05/20/17 02:48 Acetaminophen/ Hydrocodone Bitart ([place] 5-325 Mg) 1 tab Q4H PRN PO pain 2-5 05/13/17 15:15 05/14/17 19:50 Allopurinol (Zyloprim) 300 mg DAILY PO 05/16/17 09:00 05/20/17 09:15 Dexamethasone Sodium Phosphate (Decadron Inj) 4 mg Q6HR IV PUSH 05/16/17 00:00 05/20/17 05:45 Gabapentin (Neurontin) 300 mg TID PO 05/16/17 09:00 05/20/17 09:15 Hydroxyzine HCl (Atarax) 25 mg Q6H PO 05/16/17 09:00 05/20/17 09:15 Hydroxyzine HCl (Atarax) 25 mg Q6H PRN PO breakthrough itch 05/16/17 09:00 05/20/17 04:12 Vancomycin HCl 1000 mg/Sodium Chloride 250 ml @ 250 mls/hr [employer]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 SKIN: Warm and dry. HEAD: Normocephalic. EYES: No injection or drainage. NECK: Supple, trachea midline. CARDIOVASCULAR: Regular rate and rhythm RESPIRATORY: Breath sounds equal bilaterally. No accessory muscle use. GASTROINTESTINAL: Abdomen soft, non-tender, nondistended. EXTREMITIES: No cyanosis NEUROLOGICAL: awake and alert, normal speech. moving all extremities. Assessment/Plan Problem List: (1) Hodgkin lymphoma ICD Codes: C81.90 - Hodgkin lymphoma, unspecified, unspecified site Status: Acute Plan: 05/20/17: s/p ABVD yesterday. discussed changing pain medications to PO and addressing constipation. discussed that she can go home when her pain is controlled. 05/19/17 BM biopsy results still pending. Proceed with C1D1 ABVD. Discussed risks and benefits, no more questions at present. 05/18/17: PARAMEDIC oncology consult, bone marrow biopsy today. --HIV negative --Pulmonary function test: VOLUMES DYNAMIC: FVC and FEV1 normal. STATIC: RV and FRC mildly increased; TLC normal. FLOWS: FEV1% normal; FEF 25-75 severely reduced. DIFFUSION: Low normal. IMPRESSION: --Very mild obstructive ventilatory defect in the terminal airways with mild hyperinflation. There is improvement post-bronchodilator. --Echocardiogram shows EF of 65-70% HPI: 4 months ago in February she had developed pneumonia-like symptoms with cough. +running fever. goes up to 103. ++drenching night sweats. lost 20 pounds in the last 4 months. complaining of back pain and severe bone pain. CAT of the chest, abdomen and pelvis was done which showed lymphadenopathy, multiple lesions in the lung, spleen and liver. biopsy of the liver mass and also right inguinal lymph node=classical Hodgkin's lymphoma. --Miladis consulted ([facility]) for possible palliative xrt to painful back lesions : chemotherapy regimen and radiation treatment cannot be delivered at the same time. If her pain is not improving, consider delivering radiation treatment perhaps just prior to her next chemotherapy--could try to limit her radiation treatment to 5 fractions. do not believe she is a candidate for single fraction treatment. (2) Back pain ICD Codes: M54.9 - Dorsalgia, unspecified Status: Acute Plan: 05/20/17: continue Oramorph at 60mg PO Q 8 hours. start PO Oxycodone 5 or 10mg depending on pain level. continue IV dilaudid for severe breakthrough pain. 05/19/17. Anticipate pain would improve with treatment. Currently receiving long acting and breakthrough pain medication. Discussed with Dr. Brumfield. 05/18: increase Oramorph to 60mg PO TID, continue Dilaudid IV for breakthrough pain. --on scheduled gabapentin for generalized tingling and burning (3) Insomnia ICD Codes: G47.00 - Insomnia, unspecified Plan: --on xanax PO PRN Assessment 37 y/o female admitted with severe back pain with a new diagnosis of classical Hodgkin's lymphoma, high IPS. Plan 1. oncology clear for discharge once pain controlled. 2. give Relistor 12mg SQ x 1 3. increase cary-colace to 2 tabs PO BID 4. continue PRN lactulose. 5. wean off steroids--reduce to decadron 2mg PO q 12 hours today, will continue to wean tomorrow Attending Statement The exam, history, and the medical decision-making described in the above note were completed with the assistance of the mid-level provider. I reviewed and agree with the findings presented. I attest that I had a [id number] encounter with the patient on the same day, and personally performed and documented my assessment and findings in the medical record. Sleepy from Xanax. Last dose of pain meds > 6 hours ago, requesting dose now. Tolerated chemotherapy well. Titrate down Decadron. Bone marrow biopsy still pending. Problem Qualifiers (1) Hodgkin lymphoma: Jessica Easton May 20, 2017 11:08 Tran Lima MD May 20, 2017 20:05
[2017-05-20] MEDS: ALPRAZolam 0.25 MG TAB PO PRN ×2 (11:12→23:44)
[2017-05-20] MEDS ORDERED: DEXTROSE 5%-LACTATED RING INJ 1,000 ML IV SCH (11:15)
[2017-05-20] MEDS: DEXAMETHASONE 0.5 MG TAB PO SCH (19:31)
[2017-05-21] VITALS: BP 122/92; PULSE 80; RESP 16; TEMP 96.5; O2SAT 100
[2017-05-21] MEDS: MORPHINE SULFATE 30 MG CONTROLLED RELEASE TAB PO SCH ×3 (01:06→18:21)
[2017-05-21] MEDS ORDERED: HYDROmorphone HCL PF 2 MG/ML VIAL IV SCH (01:15)
[2017-05-21] MEDS: hydrOXYzine HCL 25 MG TAB PO SCH ×4 (03:14→20:40)
[2017-05-21 04:00] VITALS: BP 108/72; PULSE 60; RESP 16; TEMP 96.8; O2SAT 100
[2017-05-21 04:22] LABS: AUTOMATED NEUTROPHIL # 11.6 TH/MM3 (1.8-7.7); BASOPHIL # 0.1 TH/MM3 (0-0.2); BASOPHIL % 0.4 % (0.0-2.0); HEMATOCRIT 29.9 % (35.0-46.0); HEMOGLOBIN 9.8 GM/DL (11.6-15.3); LYMPH % 3.8 % (9.0-44.0); LYMPHOCYTE # 0.5 TH/MM3 (1.0-4.8); MEAN CELL VOLUME 78.1 FL (80.0-100.0); MEAN CORPUSCULAR HEMOGLOBIN 25.7 PG (27.0-34.0); MEAN CORPUSCULAR HGB CONC 32.9 % (32.0-36.0); MEAN PLATELET VOLUME 7.1 FL (7.0-11.0); MONO % 2.5 % (0.0-8.0); MONOCYTE # 0.3 TH/MM3 (0-0.9); NEUT % 93.3 % (16.0-70.0); PLATELET COUNT 700 TH/MM3 (150-450); RED BLOOD COUNT 3.82 MIL/MM3 (4.00-5.30); RED CELL DISTRIBUTION WIDTH 19.1 % (11.6-17.2); WHITE BLOOD COUNT 12.5 TH/MM3 (4.0-11.0)
[2017-05-21 04:49] LABS: BICARBONATE 28.1 MEQ/L (21.0-32.0); CALCIUM 8.4 MG/DL (8.5-10.1); CREATININE 0.63 MG/DL (0.50-1.00)
[2017-05-21] MEDS: HYDROmorphone HCL PF 2 MG/ML VIAL IV PUSH PRN ×3 (06:01→19:40)
[2017-05-21] MEDS: hydrOXYzine HCL 25 MG TAB PO PRN ×2 (06:05→18:25)
[2017-05-21] MEDS: GABAPENTIN 300 MG CAP PO SCH ×3 (06:09→20:40)
[2017-05-21] MEDS: LACTULOSE SYRUP 20 GM/30 ML CUP PO SCH ×2 (07:38→20:40)
[2017-05-21] MEDS: DEXAMETHASONE 0.5 MG TAB PO SCH ×2 (07:39→20:40)
[2017-05-21] MEDS: DOCUSATE SODIUM 50 MG/SENNA 8.6 MG TAB PO SCH ×2 (07:39→20:40)
[2017-05-21] MEDS: PANTOPRAZOLE SOD 40 MG DELAYED RELEASE TAB PO SCH (07:39)
[2017-05-21] MEDS: ALLOPURINOL 300 MG TAB PO SCH (07:39)
[2017-05-21] MEDS: ALPRAZolam 0.25 MG TAB PO PRN (07:39)
[2017-05-21 08:00] VITALS: BP 105/60; PULSE 55; RESP 18; TEMP 97.7; O2SAT 99
[2017-05-21] MEDS: SODIUM CHLORIDE 0.9% FLUSH 10 ML FLUSH IV FLUSH SCH ×2 (09:00→20:41)
--- NOTE | 2017-05-21 09:25 | PD.ONC.PN ---
Subjective Subjective Remarks Afebrile overnight. Patient woke up feeling nauseated today. she is still having significant pains requiring breakthrough medication, mostly in her back and collarbone, near her port. she states the oxycodone does help relieve her pain. no bowel movement. Objective Data Date Time Temp Pulse Resp B/P (MAP) Pulse Ox O2 Delivery O2 Flow Rate FiO2 05/21/17 08:00 97.7 55 18 105/60 (75) 99 05/21/17 04:00 96.8 60 16 108/72 (84) 100 05/21/17 00:00 96.5 80 16 122/92 (102) 100 05/20/17 20:00 97.4 72 16 114/70 (85) 100 05/20/17 16:00 97.9 70 18 100/65 (77) 98 05/20/17 12:00 97.6 60 18 114/70 (85) 95 05/20/17 10:11 55 05/21/17 05/21/17 05/21/17 07:00 15:00 23:00 Output Total 1600 ml Balance -1600 ml Result Diagram: 05/21/17 0315 05/21/17 0315 Laboratory Results Laboratory Tests Test 05/21/17 03:15 White Blood Count 12.5 TH/MM3 Red Blood Count 3.82 MIL/MM3 Hemoglobin 9.8 GM/DL Hematocrit 29.9 % Mean Corpuscular Volume 78.1 FL Mean Corpuscular Hemoglobin 25.7 PG Mean Corpuscular Hemoglobin Concent 32.9 % Red Cell Distribution Width 19.1 % Platelet Count 700 TH/MM3 Mean Platelet Volume 7.1 FL Neutrophils (%) (Auto) 93.3 % Lymphocytes (%) (Auto) 3.8 % Monocytes (%) (Auto) 2.5 % Eosinophils (%) (Auto) 0.0 % Basophils (%) (Auto) 0.4 % Neutrophils # (Auto) 11.6 TH/MM3 Lymphocytes # (Auto) 0.5 TH/MM3 Monocytes # (Auto) 0.3 TH/MM3 Eosinophils # (Auto) 0.0 TH/MM3 Basophils # (Auto) 0.1 TH/MM3 CBC Comment DIFF FINAL Differential Comment Blood Urea Nitrogen 17 MG/DL Creatinine 0.63 MG/DL Random Glucose 88 MG/DL Calcium Level 8.4 MG/DL Uric Acid 2.6 MG/DL Lactate Dehydrogenase 207 U/L Sodium Level 138 MEQ/L Potassium Level 4.1 MEQ/L Chloride Level 102 MEQ/L Carbon Dioxide Level 28.1 MEQ/L Anion Gap 8 MEQ/L Estimat Glomerular Filtration Rate 105 ML/MIN Administered Medications Medications (Trade) Dose Ordered Sig/Yasir Route PRN Reason Start Time Stop Time Status Last Admin Dose Admin Sodium Chloride (NS Flush) 2 ml BID IV FLUSH 05/13/17 09:00 05/20/17 19:36 Acetaminophen (Tylenol) 650 mg Q4H PRN PO TEMP > 100.4 05/12/17 21:30 05/15/17 23:25 Magnesium Hydroxide (Milk Of Magnesia Liq) 30 ml Q12H PRN PO Mild constipation 05/12/17 21:30 05/19/17 05:38 Allopurinol (Zyloprim) 300 mg DAILY PO 05/16/17 09:00 05/21/17 07:39 Gabapentin (Neurontin) 300 mg TID PO 05/16/17 09:00 05/21/17 06:09 Hydroxyzine HCl (Atarax) 25 mg Q6H PO 05/16/17 09:00 05/21/17 07:39 Hydroxyzine HCl (Atarax) 25 mg Q6H PRN PO breakthrough itch 05/16/17 09:00 05/21/17 06:05 Morphine Sulfate (Oramorph Sr) 60 mg Q8H PO 05/18/17 10:00 05/21/17 09:07 Lactulose (Lactulose Liq) 30 ml DAILY PO 05/18/17 19:00 05/21/17 07:38 Hydromorphone HCl (Dilaudid Pf Inj) 1 mg Q6H PRN IV PUSH BREAKTHROUGH PAIN 05/20/17 10:00 05/21/17 06:01 Alprazolam (Xanax) 0.25 mg Q6H PRN PO anxiety 05/20/17 10:30 05/21/17 07:39 Oxycodone HCl (Roxicodone) 10 mg Q4H PRN PO pain6-10 05/20/17 11:00 05/21/17 09:07 Pantoprazole Sodium (Protonix) 40 mg DAILY PO 05/21/17 09:00 05/21/17 07:39 Senna/Docusate Sodium (Cary-Colace) 2 tab BID PO 05/20/17 21:00 05/21/17 07:39 Dexamethasone (Decadron) 2 mg Q12HR PO 05/20/17 21:00 05/21/17 07:39 Objective Remarks GENERAL: Pleasant female, lying in bed, appears comfortable. SKIN: Warm and dry. HEAD: Normocephalic. EYES: No injection or drainage. NECK: Supple, trachea midline. CARDIOVASCULAR: Regular rate and rhythm RESPIRATORY: Breath sounds equal bilaterally. No accessory muscle use. GASTROINTESTINAL: Abdomen soft, non-tender, nondistended. EXTREMITIES: No cyanosis NEUROLOGICAL: awake, alert. no focal deficit. Assessment/Plan Problem List: (1) Hodgkin lymphoma ICD Codes: C81.90 - Hodgkin lymphoma, unspecified, unspecified site Status: Acute Plan: 05/21/17: continue Oramorph + oxycodone for breakthrough. clear for discharge when pain controlled. 05/20/17: s/p ABVD yesterday. discussed changing pain medications to PO and addressing constipation. discussed that she can go home when her pain is controlled. 05/19/17 BM biopsy results still pending. Proceed with C1D1 ABVD. Discussed risks and benefits, no more questions at present. 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 --HIV negative --Pulmonary function test: VOLUMES DYNAMIC: FVC and FEV1 normal. STATIC: RV and FRC mildly increased; TLC normal. FLOWS: FEV1% normal; FEF 25-75 severely reduced. DIFFUSION: Low normal. IMPRESSION: --Very mild obstructive ventilatory defect in the terminal airways with mild hyperinflation. There is improvement post-bronchodilator. --Echocardiogram shows EF of 65-70% HPI: 4 months ago in February she had developed pneumonia-like symptoms with cough. +running fever. goes up to 103. ++drenching night sweats. lost 20 pounds in the last 4 months. complaining of back pain and severe bone pain. CAT of the chest, abdomen and pelvis was done which showed lymphadenopathy, multiple lesions in the lung, spleen and liver. biopsy of the liver mass and also right inguinal lymph node=classical Hodgkin's lymphoma. --Miladis consulted ([facility]) for possible palliative xrt to painful back lesions : chemotherapy regimen and radiation treatment cannot be delivered at the same time. If her pain is not improving, consider delivering radiation treatment perhaps just prior to her next chemotherapy--could try to limit her radiation treatment to 5 fractions. do not believe she is a candidate for single fraction treatment. (2) Insomnia ICD Codes: G47.00 - Insomnia, unspecified Plan: --on xanax PO PRN Assessment 37 y/o female admitted with severe back pain with a new diagnosis of classical Hodgkin's lymphoma, high IPS. Plan 1. continue Oramorph + oxycodone 2. continue bowel regimen. may need to increase lactulose today 3. d/c when pain controlled. Attending Statement The exam, history, and the medical decision-making described in the above note were completed with the assistance of the mid-level provider. I reviewed and agree with the findings presented. I attest that I had a [id number] encounter with the patient on the same day, and personally performed and documented my assessment and findings in the medical record. Chronically ill appearing, thin cachectic, room is dark blinds pulls closed in AM. c/o persistent pain. needs pain medication. Comfortably situation in bed with amenities at arms reach. Discussed plan to DC home to continue treatment as out patient. Discussed bone marrow biopsy preliminary results with pathology, BM abnormal but no HD involvement. Many no specific findings. Problem Qualifiers (1) Hodgkin lymphoma: Jessica Easton May 21, 2017 09:25 Tran Lima MD May 21, 2017 18:15
[2017-05-21] MEDS ORDERED: SOD PHOSPHATE/SOD BIPHOSPHATE (ADULT) ENEMA 133ML RECTAL ONE (10:45)
[2017-05-21 12:00] VITALS: BP 110/68; PULSE 60; RESP 18; TEMP 97.5; O2SAT 99
--- NOTE | 2017-05-21 12:04 | HHI.PR ---
Subjective Remarks Patient required breakthrough IV pain medication c/o nerve type spasms sacral area also c/o constipation Objective Vitals Vital Signs Date Time Temp Pulse Resp B/P (MAP) Pulse Ox O2 Delivery O2 Flow Rate FiO2 05/21/17 08:00 97.7 55 18 105/60 (75) 99 05/21/17 04:00 96.8 60 16 108/72 (84) 100 05/21/17 00:00 96.5 80 16 122/92 (102) 100 05/20/17 20:00 97.4 72 16 114/70 (85) 100 05/20/17 16:00 97.9 70 18 100/65 (77) 98 05/20/17 12:00 97.6 60 18 114/70 (85) 95 Result Diagram: 05/21/1731405/21/17314 Other Results Laboratory Tests Test 05/18/17 13:35 05/19/17 04:30 05/20/17 04:10 05/21/17 03:15 Bone Marrow Immunophenotyping White Blood Count 16.8 TH/MM3 18.9 TH/MM3 12.5 TH/MM3 Red Blood Count 3.82 MIL/MM3 3.68 MIL/MM3 3.82 MIL/MM3 Hemoglobin 9.7 GM/DL 9.9 GM/DL 9.8 GM/DL Hematocrit 30.2 % 29.2 % 29.9 % Mean Corpuscular Volume 78.9 FL 79.4 FL 78.1 FL Mean Corpuscular Hemoglobin 25.3 PG 26.9 PG 25.7 PG Mean Corpuscular Hemoglobin Concent 32.1 % 33.9 % 32.9 % Red Cell Distribution Width 19.0 % 19.1 % 19.1 % Platelet Count 925 TH/MM3 810 TH/MM3 700 TH/MM3 Mean Platelet Volume 6.8 FL 7.0 FL 7.1 FL Neutrophils (%) (Auto) 94.7 % 94.8 % 93.3 % Lymphocytes (%) (Auto) 1.9 % 2.1 % 3.8 % Monocytes (%) (Auto) 3.3 % 2.8 % 2.5 % Eosinophils (%) (Auto) 0.0 % 0.0 % 0.0 % Basophils (%) (Auto) 0.1 % 0.3 % 0.4 % Neutrophils # (Auto) 15.9 TH/MM3 17.9 TH/MM3 11.6 TH/MM3 Lymphocytes # (Auto) 0.3 TH/MM3 0.4 TH/MM3 0.5 TH/MM3 Monocytes # (Auto) 0.6 TH/MM3 0.5 TH/MM3 0.3 TH/MM3 Eosinophils # (Auto) 0.0 TH/MM3 0.0 TH/MM3 0.0 TH/MM3 Basophils # (Auto) 0.0 TH/MM3 0.1 TH/MM3 0.1 TH/MM3 CBC Comment AUTO DIFF DIFF FINAL DIFF FINAL Differential Comment AUTO DIFF CONFIRMED Blood Urea Nitrogen 14 MG/DL 12 MG/DL 17 MG/DL Creatinine 0.64 MG/DL 0.57 MG/DL 0.63 MG/DL Random Glucose 183 MG/DL 129 MG/DL 88 MG/DL Calcium Level 9.1 MG/DL 8.8 MG/DL 8.4 MG/DL Uric Acid 2.1 MG/DL 2.3 MG/DL 2.6 MG/DL Lactate Dehydrogenase 140 U/L 242 U/L 207 U/L Sodium Level 139 MEQ/L 141 MEQ/L 138 MEQ/L Potassium Level 4.0 MEQ/L 4.1 MEQ/L 4.1 MEQ/L Chloride Level 104 MEQ/L 105 MEQ/L 102 MEQ/L Carbon Dioxide Level 25.5 MEQ/L 27.6 MEQ/L 28.1 MEQ/L Anion Gap 10 MEQ/L 8 MEQ/L 8 MEQ/L Estimat Glomerular Filtration Rate 103 ML/MIN 118 ML/MIN 105 ML/MIN Imaging Last Impressions Abdomen X-Ray 05/19/17 0800 Signed Impressions: Service Date/Time: Friday, May 19, 2017 09:22 - CONCLUSION: 1. Mild constipation. No acute findings. Jeffery Tomas MD Bone Biopsy CT 05/18/17 0000 Signed Impressions: Service Date/Time: Thursday, May 18, 2017 14:08 - CONCLUSION: 1. Uncomplicated CT guided bone marrow aspirate. 2. Uncomplicated CT guided bone marrow biopsy. Asaf Diaz MD Port Line Insertion 05/17/17 0000 Signed Impressions: Service Date/Time: Wednesday, May 17, 2017 13:03 - CONCLUSION: Uncomplicated ultrasound and fluoroscopic guided implanted central venous port catheter placement as described in detail above. An 8 [place] [employer] port was placed. Jm Archer MD Thoracic Spine MRI 05/13/17 0000 Signed Impressions: Service Date/Time: May 17:55 - CONCLUSION: Signal abnormalities within the T3 and T4 vertebral body and right T4 pedicle with contrast enhancement. There is also T1 prolongation without contrast enhancement in the T8 vertebral body. The appearance is nonspecific but is abnormal and suggests possible metastatic disease. Amrit Machado MD Sacrum/Coccyx MRI 05/13/17 0000 Signed Impressions: Service Date/Time: May 17:55 - CONCLUSION: There are signal abnormalities in the superior S2 and bilateral sacroiliac with T2 prolongation and contrast enhancement. This suggests the possibility of metastatic lesions. Amrit Machado MD Lumbar Spine MRI 05/13/17 0000 Signed Impressions: Service Date/Time: May 17:55 - CONCLUSION: 1. No evidence of disc bulge or protrusion. 2. Triangular shaped area of T2 prolongation in the anterior inferior L1 vertebral body with correlating enhancement on the postcontrast study. This of uncertain significance, but would be an unusual shape and location for a metastatic lesion. Amrit Machado MD Hip and Pelvis X-Ray 05/12/17 1854 Signed Impressions: Service Date/Time: Friday, May 12, 2017 19:11 - CONCLUSION: Negative evaluation of the left hip. Amrit Machado MD Objective Remarks General: NAD, AAOx3 Chest: CTA Cardiac: Regular Abd: hypoactive BS, soft ND/NT Ext: No edema A/P Problem List: (1) Hodgkin lymphoma ICD Codes: C81.90 - Hodgkin lymphoma, unspecified, unspecified site Status: Acute Plan: - Pt had reported unintentional weight loss ~20lbs since 03/2017, night sweats and had outpt CT Chest/Abd/Pelvis on 05/07/17 - Outpt Chest CT W/W/O IV contrast (05/07/17): - Innumerable masses scattered throughout the lungs. Numerous lymph nodes throughout the mediastinum and both hilar regions - Outpt CT Abd/pelvis W/W/O contrast (05/07/17): - There is widespread metastatic disease throughout the spleen, the liver and the retroperitoneum. Lymphoma most likely diagnosis versus conceivably melanoma or breast cancer. - Indeterminate sclerotic lesion in T12. - Liver with 2.7cm low-density lesion in the lateral segment of the left lobe of the liver. At least 5 other low-density lesions scattered throughout the liver concerning for metastatic disease. - Spleen is markedly heterogenous appearance with multiple masses. - Retroperitoneum with 2.2cm left periaortic lymph node below the left renal vein. At least 3 other retroperitoneal lymph nodes are present. - 3.0 x 1.6cm right inguinal lymph node. Some internal obturator lymphadenopathy on the right as well. - Pt underwent outpt CT guided liver biopsy and US guided LN biopsy on 05/12/17. - AFP, CA-19-9, CEA, Ca 125 are WNL - TSH, Free T4 are WNL - Pt has been having increased pain in her tailbone and back more recently. - Thoracic Spine MRI (05/13/17) --> Signal abnormalities within the T3 and T4 vertebral body and right T4 pedicle with contrast enhancement. There is also T1 prolongation without contrast enhancement in the T8 vertebral body. The appearance is nonspecific but is abnormal and suggests possible metastatic disease. - Lumbar Spine MRI (05/13/17) --> No evidence of disc bulge or protrusion. Triangular shaped area of T2 prolongation in the anterior inferior L1 vertebral body with correlating enhancement on the postcontrast study. This of uncertain significance, but would be an unusual shape and location for a metastatic lesion. - Sacral spine MRI (05/13/17) --> There are signal abnormalities in the superior S2 and bilateral sacroiliac with T2 prolongation and contrast enhancement. This suggests the possibility of metastatic lesions. - Pathology from lymph nodes shows classic Hodgkin lymphoma. liver bx nondiagnostic - Decadron per oncology - Increased Neurontin to 600mg TID started on 05/21 - 2D echo (05/15/17): - LV systolic function hyperdynamic with estimated EF 65-70% - Trace to mild tricuspid valve regurgitation - Estimated PA pressure 37.2mmHg - Pt had PFT with DLCO on 05/17 - Sehhqs-a-Gxem placement on 05/17 - BM biopsy on 05/18, pathology pending. - Pt received chemotherapy (05/19/17) - Oramorph 60mg TID - oxycodone increased 10-15 mg prn & dilaudid q6h prn breakthrough pain - case d/w nursing. Try to to utilize PO medication only. - Xanax prn anxiety (2) Symptomatic anemia ICD Codes: D64.9 - Anemia, unspecified Status: Acute Plan: - Pt is a 37 y/o female who was sent to the ED by her PCP for worsening anemia and leukocytosis on outpt labs. - Pt reported various complaints at the time of admission, including weight loss (Approx 20lbs in the last 3 months), intermittent dizziness, fevers, "bone pain", night sweats. - Pts outpt H/H has decreased to Hgb 7.4/Hct 22.8, MCV 77, MCH 25 on 05/11/17 and was recommended to report to the ED for further eval. - Pt had previously reported intermittent black stools and was noted to be Hemoccult positive in the ED. - She was seen by GI in 04/2016 and had an EGD with dilation for complaints of dysphagia and odynophagia. The EGD noted gastritis/superficial ulceration of the antrum, esophagitis in the distal esophagus, and food bolus in the stomach. - Pt was planned for outpt evaluation with colonoscopy which had not been performed yet. - Pt has family hx of colon cancer, father. - She has received 2 units of PRBCs at admission with H/H improving and stable - GI following - Pt had EGD on 05/14/17 which was negative. - Pt refused the colonoscopy - Monitor H/H - PPI - Supportive care (3) Fever ICD Codes: R50.9 - Fever, unspecified Status: Resolved Plan: - Pt has had reported night sweats and was noted to have fevers prior to admission - Blood cultures taken in the ED with NGTD - UA was negative - [place] to most likely be related to tumor fever or related to malignancy, no obvious signs of infection - Tylenol PRN (4) Weight loss, unintentional ICD Codes: R63.4 - Abnormal weight loss Status: Acute Plan: - See above. (5) Back pain ICD Codes: M54.9 - Dorsalgia, unspecified Status: Acute Plan: - Pt has been having increased pain in her tailbone and back more recently likely related to bone mets. - See above (6) Liver mass ICD Codes: R16.0 - Hepatomegaly, not elsewhere classified Plan: - Outpt biopsy was nondiagnostic (7) Constipation ICD Codes: K59.00 - Constipation, unspecified Plan: Patient on [place]-colace 2 tablets BID increase lactulose to BID add Fleets enema KUB requested Patient had one dose of relistor 05/20 plan to give additional Relistor after review of KUB Assessment and Plan Patient examined. Assessment and plan formulated with Lorena Storey PA-C. I agree with the above. Pt quite painful this morning. Pt can NOT be discharged to home until controlled with PO pain medication regimen. Poor bowel sounds today. Obtain KUB. If no evidence of obstruction, will give Relistor. scheduled Oramorph gabapentin increased prn oxycodone also increased. continue BID pericolace increase lactulose to BID Problem Qualifiers (1) Hodgkin lymphoma: Lorena Storey May 21, 2017 12:04 Marcelo Brumfield DO May 21, 2017 12:42
--- NOTE | 2017-05-21 13:16 | RADRPT ---
EXAM DATE/TIME: 05/21/2017 12:46 [place] COMPARISON: ABDOMEN KUB ONLY, May 19, 2017, 9:22. INDICATIONS : Evaluate for constipaton MEDICAL HISTORY : Hodgkins lymphoma SURGICAL HISTORY : Ovarian cyst removal ENCOUNTER: Subsequent ACUITY: 1 week PAIN SCORE: 2/10 LOCATION: Abdomen. FINDINGS: The examination demonstrates a moderate amount of stool in the descending colon and rectum suggesting constipation. The bowel gas pattern is otherwise unremarkable in appearance. No organomegaly is identified. No abnormal calcifications are evident. The osseous structures are int act the CONCLUSION: 1. Probable constipation. Vipul Duran MD on May 21, 2017 at 13:13 Board Certified Radiologist. This report was verified electronically.
[2017-05-21 16:00] VITALS: BP 119/75; PULSE 85; RESP 18; TEMP 97.9; O2SAT 99
[2017-05-21] MEDS ORDERED: METHYLNALTREXONE BROMIDE 12 MG/0.6 ML VIAL SQ ONE (17:30)
[2017-05-21 20:00] VITALS: BP 113/73; PULSE 76; RESP 16; TEMP 98.3; O2SAT 100
[2017-05-22] VITALS: BP 116/72; PULSE 72; RESP 16; TEMP 96.9; O2SAT 100
[2017-05-22] MEDS: HYDROmorphone HCL PF 2 MG/ML VIAL IV PUSH PRN ×3 (00:33→21:47)
[2017-05-22] MEDS: MORPHINE SULFATE 30 MG CONTROLLED RELEASE TAB PO SCH ×3 (00:35→18:58)
[2017-05-22] MEDS: hydrOXYzine HCL 25 MG TAB PO PRN (00:38)
[2017-05-22] MEDS: hydrOXYzine HCL 25 MG TAB PO SCH ×3 (02:19→16:28)
[2017-05-22 04:00] VITALS: BP 112/62; PULSE 71; RESP 16; TEMP 97; O2SAT 95
[2017-05-22] MEDS: GABAPENTIN 300 MG CAP PO SCH ×3 (06:07→21:47)
[2017-05-22 08:24] VITALS: BP 117/80; PULSE 69; RESP 18; TEMP 97.7; O2SAT 100
[2017-05-22] MEDS: ALLOPURINOL 300 MG TAB PO SCH (08:27)
[2017-05-22] MEDS: DOCUSATE SODIUM 50 MG/SENNA 8.6 MG TAB PO SCH ×2 (08:27→20:36)
[2017-05-22] MEDS: LACTULOSE SYRUP 20 GM/30 ML CUP PO SCH ×2 (08:27→20:36)
[2017-05-22] MEDS: ALPRAZolam 0.25 MG TAB PO PRN ×2 (08:27→19:14)
[2017-05-22] MEDS: PANTOPRAZOLE SOD 40 MG DELAYED RELEASE TAB PO SCH (08:27)
[2017-05-22] MEDS: DEXAMETHASONE 0.5 MG TAB PO SCH ×2 (08:27→20:36)
[2017-05-22] MEDS: SODIUM CHLORIDE 0.9% FLUSH 10 ML FLUSH IV FLUSH SCH ×2 (08:29→20:37)
--- NOTE | 2017-05-22 09:16 | PD.ONC.PN ---
Subjective Subjective Remarks Afebrile overnight. Patient resting in bed in nad. states she feels her pain is better controlled. however she is still requiring IV dilaudid for 10/10 pain. still has anxiety and itching. the pain is both "all over" generalized pain, as well as at times localized to her port site (collar bone) and back. Objective Data Date Time Temp Pulse Resp B/P (MAP) Pulse Ox O2 Delivery O2 Flow Rate FiO2 05/22/17 04:00 97.0 71 16 112/62 (79) 95 05/22/17 00:00 96.9 72 16 116/72 (87) 100 05/21/17 20:00 98.3 76 16 113/73 (86) 100 05/21/17 16:00 97.9 85 18 119/75 (90) 99 05/21/17 12:00 97.5 60 18 110/68 (82) 99 05/22/17 05/22/17 05/22/17 07:00 15:00 23:00 Intake Total 1900 ml Output Total 1500 ml Balance 400 ml Result Diagram: 05/21/17 0315 05/21/17 0315 Imaging Studies Last 24 hours Impressions Abdomen X-Ray 05/21/17 1238 Signed Impressions: Service Date/Time: Sunday, May 21, 2017 12:46 - CONCLUSION: 1. Probable constipation. Vipul Duran MD Administered Medications Medications (Trade) Dose Ordered Sig/Yasir Route PRN Reason Start Time Stop Time Status Last Admin Dose Admin Sodium Chloride (NS Flush) 2 ml BID IV FLUSH 05/13/17 09:00 05/22/17 08:29 Acetaminophen (Tylenol) 650 mg Q4H PRN PO TEMP > 100.4 05/12/17 21:30 05/15/17 23:25 Magnesium Hydroxide (Milk Of Magnesia Liq) 30 ml Q12H PRN PO Mild constipation 05/12/17 21:30 05/19/17 05:38 Allopurinol (Zyloprim) 300 mg DAILY PO 05/16/17 09:00 05/22/17 08:27 Hydroxyzine HCl (Atarax) 25 mg Q6H PO 05/16/17 09:00 05/22/17 08:27 Hydroxyzine HCl (Atarax) 25 mg Q6H PRN PO breakthrough itch 05/16/17 09:00 05/22/17 00:38 Morphine Sulfate (Oramorph Sr) 60 mg Q8H PO 05/18/17 10:00 05/22/17 00:35 Hydromorphone HCl (Dilaudid Pf Inj) 1 mg Q6H PRN IV PUSH BREAKTHROUGH PAIN 05/20/17 10:00 05/22/17 00:33 Alprazolam (Xanax) 0.25 mg Q6H PRN PO anxiety 05/20/17 10:30 05/22/17 08:27 Oxycodone HCl (Roxicodone) 10 mg Q4H PRN PO pain 1-5 05/20/17 11:00 05/21/17 09:07 Pantoprazole Sodium (Protonix) 40 mg DAILY PO 05/21/17 09:00 05/22/17 08:27 Senna/Docusate Sodium (Cary-Colace) 2 tab BID PO 05/20/17 21:00 05/22/17 08:27 Gabapentin (Neurontin) 600 mg Q8HR PO 05/21/17 14:00 05/22/17 06:07 Lactulose (Lactulose Liq) 30 ml BID PO 05/21/17 21:00 05/22/17 08:27 Oxycodone HCl (Roxicodone) 15 mg Q4H PRN PO PAIN SCALE 6 TO 10 05/21/17 11:00 05/22/17 06:08 Dexamethasone (Decadron) 1 mg Q12HR PO 05/22/17 09:00 05/22/17 08:27 Objective Remarks GENERAL: Anxious female, sitting up in bed, itching. SKIN: Warm and dry. HEAD: Normocephalic. EYES: No injection or drainage. NECK: Supple, trachea midline. CARDIOVASCULAR: Regular rate and rhythm RESPIRATORY: Breath sounds equal bilaterally. No accessory muscle use. GASTROINTESTINAL: Abdomen soft, non-tender, nondistended. EXTREMITIES: No cyanosis NEUROLOGICAL: no focal deficit. Assessment/Plan Assessment 37 y/o female with newly diagnosed classical Hodgkin's lymphoma, high IPS. s/p C1 ABVD 05/19 Plan 1. increase Oramorph to 90mg PO q 8 hours 2. continue bowel regimen cary-colace BID + lactulose BID 3. okay to d/c when pain controlled. Attending Statement The exam, history, and the medical decision-making described in the above note were completed with the assistance of the mid-level provider. I reviewed and agree with the findings presented. I attest that I had a [id number] encounter with the patient on the same day, and personally performed and documented my assessment and findings in the medical record. uncomfortable with discomfort in the chest bilaterally without sob or tachycardia. will try toradol for a day and see if it helps. her lungs are clear and heart reg rhythm and not rapid. if worsening problems will check ct of chest. Jessica Easton May 22, 2017 09:16 Rodrigo Sweeney MD May 22, 2017 14:11
[2017-05-22 12:14] VITALS: BP 101/66; PULSE 98; RESP 22; TEMP 98.2; O2SAT 98
[2017-05-22 16:46] VITALS: BP 108/76; PULSE 72; RESP 18; TEMP 98.4; O2SAT 98
--- NOTE | 2017-05-22 16:57 | HHI.PR ---
Subjective Remarks Pt continues to have difficulties with breakthrough pain and itching. Pt had multiple bowel movements today. Objective Vitals Vital Signs Date Time Temp Pulse Resp B/P (MAP) Pulse Ox O2 Delivery O2 Flow Rate FiO2 05/22/17 16:46 98.4 72 18 108/76 (87) 98 05/22/17 12:14 98.2 98 22 101/66 (78) 98 05/22/17 08:24 97.7 69 18 117/80 (92) 100 05/22/17 04:00 97.0 71 16 112/62 (79) 95 05/22/17 00:00 96.9 72 16 116/72 (87) 100 05/21/17 20:00 98.3 76 16 113/73 (86) 100 Result Diagram: 05/21/1731405/21/17314 Imaging Last Impressions Abdomen X-Ray 05/19/17 0800 Signed Impressions: Service Date/Time: Friday, May 19, 2017 09:22 - CONCLUSION: 1. Mild constipation. No acute findings. Jeffery Tomas MD Bone Biopsy CT 05/18/17 0000 Signed Impressions: Service Date/Time: Thursday, May 18, 2017 14:08 - CONCLUSION: 1. Uncomplicated CT guided bone marrow aspirate. 2. Uncomplicated CT guided bone marrow biopsy. Asaf Diaz MD Port Line Insertion 05/17/17 0000 Signed Impressions: Service Date/Time: Wednesday, May 17, 2017 13:03 - CONCLUSION: Uncomplicated ultrasound and fluoroscopic guided implanted central venous port catheter placement as described in detail above. An 8 [place] [employer] port was placed. Jm Archer MD Thoracic Spine MRI 05/13/17 0000 Signed Impressions: Service Date/Time: May 17:55 - CONCLUSION: Signal abnormalities within the T3 and T4 vertebral body and right T4 pedicle with contrast enhancement. There is also T1 prolongation without contrast enhancement in the T8 vertebral body. The appearance is nonspecific but is abnormal and suggests possible metastatic disease. Amrit Machado MD Sacrum/Coccyx MRI 05/13/17 0000 Signed Impressions: Service Date/Time: May 17:55 - CONCLUSION: There are signal abnormalities in the superior S2 and bilateral sacroiliac with T2 prolongation and contrast enhancement. This suggests the possibility of metastatic lesions. Amrit Machado MD Lumbar Spine MRI 05/13/17 0000 Signed Impressions: Service Date/Time: May 17:55 - CONCLUSION: 1. No evidence of disc bulge or protrusion. 2. Triangular shaped area of T2 prolongation in the anterior inferior L1 vertebral body with correlating enhancement on the postcontrast study. This of uncertain significance, but would be an unusual shape and location for a metastatic lesion. Amrit Machado MD Hip and Pelvis X-Ray 05/12/17 1854 Signed Impressions: Service Date/Time: Friday, May 12, 2017 19:11 - CONCLUSION: Negative evaluation of the left hip. Amrit Machado MD Objective Remarks General: NAD, AAOx3 Chest: CTA Cardiac: Regular Abd: soft, NT, ND, +BS x 4 Ext: No edema A/P Problem List: (1) Hodgkin lymphoma ICD Codes: C81.90 - Hodgkin lymphoma, unspecified, unspecified site Status: Acute Plan: - Pt had reported unintentional weight loss ~20lbs since 03/2017, night sweats and had outpt CT Chest/Abd/Pelvis on 05/07/17 - Outpt Chest CT W/W/O IV contrast (05/07/17): - Innumerable masses scattered throughout the lungs. Numerous lymph nodes throughout the mediastinum and both hilar regions - Outpt CT Abd/pelvis W/W/O contrast (05/07/17): - There is widespread metastatic disease throughout the spleen, the liver and the retroperitoneum. Lymphoma most likely diagnosis versus conceivably melanoma or breast cancer. - Indeterminate sclerotic lesion in T12. - Liver with 2.7cm low-density lesion in the lateral segment of the left lobe of the liver. At least 5 other low-density lesions scattered throughout the liver concerning for metastatic disease. - Spleen is markedly heterogenous appearance with multiple masses. - Retroperitoneum with 2.2cm left periaortic lymph node below the left renal vein. At least 3 other retroperitoneal lymph nodes are present. - 3.0 x 1.6cm right inguinal lymph node. Some internal obturator lymphadenopathy on the right as well. - Pt underwent outpt CT guided liver biopsy and US guided LN biopsy on 05/12/17. - AFP, CA-19-9, CEA, Ca 125 are WNL - TSH, Free T4 are WNL - Pt has been having increased pain in her tailbone and back more recently. - Thoracic Spine MRI (05/13/17) --> Signal abnormalities within the T3 and T4 vertebral body and right T4 pedicle with contrast enhancement. There is also T1 prolongation without contrast enhancement in the T8 vertebral body. The appearance is nonspecific but is abnormal and suggests possible metastatic disease. - Lumbar Spine MRI (05/13/17) --> No evidence of disc bulge or protrusion. Triangular shaped area of T2 prolongation in the anterior inferior L1 vertebral body with correlating enhancement on the postcontrast study. This of uncertain significance, but would be an unusual shape and location for a metastatic lesion. - Sacral spine MRI (05/13/17) --> There are signal abnormalities in the superior S2 and bilateral sacroiliac with T2 prolongation and contrast enhancement. This suggests the possibility of metastatic lesions. - Pathology from lymph nodes shows classic Hodgkin lymphoma. liver bx nondiagnostic - Decadron per oncology - Increased Neurontin to 600mg TID started on 05/21 - 2D echo (05/15/17): - LV systolic function hyperdynamic with estimated EF 65-70% - Trace to mild tricuspid valve regurgitation - Estimated PA pressure 37.2mmHg - Pt had PFT with DLCO on 05/17 - Xdrtma-k-Yxab placement on 05/17 - BM biopsy on 05/18, pathology pending. - Pt received chemotherapy (05/19/17) - Gabapentin 600mg TID - Oramorph 90mg TID (increased to this dose 05/22) - oxycodone increased 10-15 mg prn & dilaudid q6h prn breakthrough pain - case d/w nursing. Try to to utilize PO medication only. - increased scheduled atrax to 50mg q6h - Xanax prn anxiety - will need adequate control of symptoms including pain, anxiety, and itching prior to discharge - anticipate d/c to home with C and home PT in next 1-2 days (2) Symptomatic anemia ICD Codes: D64.9 - Anemia, unspecified Status: Acute Plan: - Pt is a 37 y/o female who was sent to the ED by her PCP for worsening anemia and leukocytosis on outpt labs. - Pt reported various complaints at the time of admission, including weight loss (Approx 20lbs in the last 3 months), intermittent dizziness, fevers, "bone pain", night sweats. - Pts outpt H/H has decreased to Hgb 7.4/Hct 22.8, MCV 77, MCH 25 on 05/11/17 and was recommended to report to the ED for further eval. - Pt had previously reported intermittent black stools and was noted to be Hemoccult positive in the ED. - She was seen by GI in 04/2016 and had an EGD with dilation for complaints of dysphagia and odynophagia. The EGD noted gastritis/superficial ulceration of the antrum, esophagitis in the distal esophagus, and food bolus in the stomach. - Pt was planned for outpt evaluation with colonoscopy which had not been performed yet. - Pt has family hx of colon cancer, father. - She has received 2 units of PRBCs at admission with H/H improving and stable - GI following - Pt had EGD on 05/14/17 which was negative. - Pt refused the colonoscopy - Monitor H/H - PPI - Supportive care (3) Fever ICD Codes: R50.9 - Fever, unspecified Status: Resolved Plan: - Pt has had reported night sweats and was noted to have fevers prior to admission - Blood cultures taken in the ED with NGTD - UA was negative - [place] to most likely be related to tumor fever or related to malignancy, no obvious signs of infection - Tylenol PRN (4) Weight loss, unintentional ICD Codes: R63.4 - Abnormal weight loss Status: Acute Plan: - See above. (5) Back pain ICD Codes: M54.9 - Dorsalgia, unspecified Status: Acute Plan: - Pt has been having increased pain in her tailbone and back more recently likely related to bone mets. - See above (6) Liver mass ICD Codes: R16.0 - Hepatomegaly, not elsewhere classified Plan: - Outpt biopsy was nondiagnostic (7) Constipation ICD Codes: K59.00 - Constipation, unspecified Plan: Patient on [place]-colace 2 tablets BID increase lactulose to BID add Fleets enema KUB requested Patient had one dose of relistor 05/20 plan to give additional Relistor after review of KUB Assessment and Plan Patient examined. Assessment and plan formulated with Lorena Storey PA-C. I agree with the above. Pt quite painful this morning. Pt can NOT be discharged to home until controlled with PO pain medication regimen. Poor bowel sounds today. Obtain KUB. If no evidence of obstruction, will give Relistor. scheduled Oramorph gabapentin increased prn oxycodone also increased. continue BID pericolace increase lactulose to BID Problem Qualifiers (1) Hodgkin lymphoma: Marcelo Brumfield DO May 22, 2017 16:57
[2017-05-22] MEDS: KETOROLAC TROMETHAMINE 30 MG/ML (IVP) VIAL IV PUSH SCH (18:58)
[2017-05-22 20:33] VITALS: BP 106/66; PULSE 60; RESP 16; TEMP 98.3; O2SAT 100
[2017-05-22] MEDS: hydrOXYzine HCL 50 MG TAB PO SCH (20:35)
--- NOTE | 2017-05-22 22:22 | PD.CONS ---
History of Present Illness Service [place] [employer] Consult Requested By Medical service Reason for Consult Fertility preservation and contraception recommendations. Primary Care Physician Isabel Soriano M.D. Diagnoses: History of Present Illness This is a 37-year-old female who was admitted on 05/12 for fever and multiple other complaints, was subsequently diagnosed with high IPS Hodgkins lymphoma, is status post cycle #1 of ABVD on 05/19, from what she tells me there is no plans at this time to undergo radiation. I was consulted to discuss contraception and future fertility, patient upon record reviews was already counseled on potential of gonadal toxicity of chemo and/or radiation and embyro / oophocyte cryopreservation which patient declined ultimately desiring to start her chemo as soon as possible. Patient states she has "single", but in a relationship with the same male partner for 6 years, they have never attempted a , he has never fathered a child. She has been using combined oral contraception for several years due to history of endometriosis, most recently on and discontinued in February 2017 because she wanted a cycle monthly, her cycles were "barely there" on the , she just finished a pack of Apri which is a SHAREE, she has not started her cycle yet. Review of Systems Except as stated in HPI: all other systems reviewed are Neg Past Family Social History Allergies: Coded Allergies: No Known Allergies (Verified Adverse Reaction, Unknown, 03/10/17) Past Medical History 1. Depression. 2. Anxiety. 3. Gastroesophageal reflux. 4. Endometriosis? 5. Anemia 6. Hodgkin Lymphoma Past Surgical History 1. 2003: Laparoscopic bilateral ovarian cystectomy, she states they were "benign ", unsure if there endometriomas or extent of the surgery. Believe she still has 2 remaining ovaries. 2. Esophageal dilation 3. 2008: LEEP, states was "benign" Reported Medications See in patient MAR / Out pt med rec. Family History - Father: colon cancer. - Mother is alive and well. - One brother in a MVC. - She has had no children. -Denies any known hereditary or history of [employer]CE or breast cancers. Social History - no current T/E/D use, She occasionally smoked years ago. - She is currently unemployed. Claims Consultant Hx: STDs: Denies Pap hx: States around 2011 had a LEEP procedure that was "benign" normal Paps since then. OB Hx: -Age 29,EAB, first trimester D&C Physical Exam Vital Signs Vital Signs Date Time Temp Pulse Resp B/P (MAP) Pulse Ox O2 Delivery O2 Flow Rate FiO2 05/22/17 21:30 16 05/22/17 20:33 98.3 60 16 106/66 (79) 100 05/22/17 19:58 16 05/22/17 19:58 16 05/22/17 16:46 98.4 72 18 108/76 (87) 98 05/22/17 12:14 98.2 98 22 101/66 (78) 98 05/22/17 08:24 97.7 69 18 117/80 (92) 100 05/22/17 04:00 97.0 71 16 112/62 (79) 95 05/22/17 00:00 96.9 72 16 116/72 (87) 100 Physical Exam GENERAL: This is a well-developed patient, in no apparent distress. SKIN: No rashes, ecchymoses or lesions. HEAD: Atraumatic. Normocephalic. No temporal or scalp tenderness. EYES: Pupils equal round and reactive. Extraocular motions intact. No scleral icterus. No injection or drainage. CARDIOVASCULAR: Regular rate. RESPIRATORY: Non labored respirations. GASTROINTESTINAL: deferred : Deferred MUSCULOSKELETAL: Extremities without clubbing, cyanosis, or edema. No joint tenderness, effusion, or edema noted. No calf tenderness. Negative Homans sign bilaterally. NEUROLOGICAL: Awake and alert. Cranial nerves II through XII intact. Motor and sensory grossly within normal limits. Normal speech. Laboratory Date/Time Source Procedure Growth Status 05/13/17 06:40 Blood Other Aerobic Blood Culture - Final NO GROWTH IN 5 DAYS Complete 05/13/17 06:40 Blood Other Anaerobic Blood Culture - Final NO GROWTH IN 5 DAYS Complete Result Diagram: 05/21/17 0315 05/21/17 0315 Assessment and Plan Assessment and Plan 1. Contraception: Discussed with her that given her age and current treatment with chemotherapy she may have been put into ovarian insufficiency or failure, she may not have a cycle anytime soon or possibly again. However given her anemia and potential to avoid any vaginal bleeding that could exacerbate this and also the benefit of avoiding an unwanted during her treatment we discussed options of control. Ultimately decided that progesterone only pills would suit her best at this time, discussed risks, benefits and side effects. Mad her aware that avoiding estrogen would be beneficial given her clinical picture as it is associated with an increased risk of VTE. - Began PO progesterone while inpatient and eRx pills with 11 refills to her pharmacy for after discharge. - Provided pt my name and office contact info if she desires to follow up or talk further after discharge. 2. Fertility counseling: Discussed that components of her chemo regimen are consider to be gonadotoxic and based on age and current chemo, medical receptionist assistant (ARI) may note even pursue egg retrieval given low success rates and would probably be better candidate for donor eggs, surrogate carrier or adoption, she is aware of this and her expectations are realistic. Made her aware that ovarian suppression with GNRH agonist or contraceptive is only experimental and there is no consensus on improving rates of fertility or response of ovulation induction after chemo and/or radiation. Will come by tomorrow to give her contact info for [facility] in the area. thank you for the consult and if you have any further questions please contact me [phone]. I have signed off on this patient. Deejay Acosta MD May 22, 2017 22:22
[2017-05-23 00:50] VITALS: BP 102/59; PULSE 63; RESP 18; TEMP 98.3; O2SAT 100
[2017-05-23] MEDS: ALPRAZolam 0.25 MG TAB PO PRN ×2 (00:54→19:34)
[2017-05-23] MEDS: KETOROLAC TROMETHAMINE 30 MG/ML (IVP) VIAL IV PUSH SCH ×5 (00:54→22:04)
[2017-05-23] MEDS: MORPHINE SULFATE 30 MG CONTROLLED RELEASE TAB PO SCH ×3 (02:21→19:34)
[2017-05-23] MEDS: hydrOXYzine HCL 50 MG TAB PO SCH ×4 (02:22→22:04)
[2017-05-23] MEDS: HYDROmorphone HCL PF 2 MG/ML VIAL IV PUSH PRN ×3 (04:08→18:17)
[2017-05-23 05:34] VITALS: BP 96/55; PULSE 63; RESP 16; TEMP 98.3; O2SAT 99
[2017-05-23] MEDS: GABAPENTIN 300 MG CAP PO SCH ×3 (05:37→22:03)
[2017-05-23] MEDS: LACTULOSE SYRUP 20 GM/30 ML CUP PO SCH (08:48)
[2017-05-23] MEDS: DOCUSATE SODIUM 50 MG/SENNA 8.6 MG TAB PO SCH ×2 (08:48→22:03)
[2017-05-23] MEDS: PANTOPRAZOLE SOD 40 MG DELAYED RELEASE TAB PO SCH (08:48)
[2017-05-23] MEDS: DEXAMETHASONE 0.5 MG TAB PO SCH (08:49)
[2017-05-23] MEDS: ALLOPURINOL 300 MG TAB PO SCH (08:49)
[2017-05-23] MEDS: SODIUM CHLORIDE 0.9% FLUSH 10 ML FLUSH IV FLUSH SCH ×2 (08:58→22:04)
[2017-05-23 09:01] VITALS: BP 101/68; PULSE 64; RESP 18; TEMP 97.7; O2SAT 98
[2017-05-23] MEDS ORDERED: ORTH0.35 PO (09:39)
[2017-05-23] MEDS ORDERED: ALUMINUM/MAGNESIUM/SIMETH 30 ML CUP PO PRN (09:45)
[2017-05-23] MEDS ORDERED: CALCIUM CARBONATE 500 MG CHEWABLE TAB CHEW PRN (09:45)
--- NOTE | 2017-05-23 11:06 | PD.ONC.PN ---
Subjective Subjective Remarks Afebrile overnight. Patient resting in bed in nad. She states pain is better controlled today. anxiety better controlled with xanax. Objective Data Date Time Temp Pulse Resp B/P (MAP) Pulse Ox O2 Delivery O2 Flow Rate FiO2 05/23/17 09:01 97.7 64 18 101/68 (79) 98 05/23/17 06:38 16 05/23/17 05:34 98.3 63 16 96/55 (69) 99 05/23/17 04:35 16 05/23/17 03:20 16 05/23/17 00:50 98.3 63 18 102/59 (73) 100 05/22/17 21:30 16 05/22/17 20:33 98.3 60 16 106/66 (79) 100 05/22/17 16:46 98.4 72 18 108/76 (87) 98 05/22/17 12:14 98.2 98 22 101/66 (78) 98 05/23/17 05/23/17 05/23/17 07:00 15:00 23:00 Intake Total 960 ml Output Total 1100 ml Balance -140 ml Result Diagram: 05/21/1731405/21/17 031 Administered Medications Medications (Trade) Dose Ordered Sig/Yasir Route PRN Reason Start Time Stop Time Status Last Admin Dose Admin Sodium Chloride (NS Flush) 2 ml BID IV FLUSH 05/13/17 09:00 05/23/17 08:58 Acetaminophen (Tylenol) 650 mg Q4H PRN PO TEMP > 100.4 05/12/17 21:30 05/15/17 23:25 Magnesium Hydroxide (Milk Of Magnesia Liq) 30 ml Q12H PRN PO Mild constipation 05/12/17 21:30 05/19/17 05:38 Allopurinol (Zyloprim) 300 mg DAILY PO 05/16/17 09:00 05/23/17 08:49 Hydroxyzine HCl (Atarax) 25 mg Q6H PRN PO breakthrough itch 05/16/17 09:00 05/22/17 00:38 Hydromorphone HCl (Dilaudid Pf Inj) 1 mg Q6H PRN IV PUSH BREAKTHROUGH PAIN 05/20/17 10:00 05/23/17 04:08 Alprazolam (Xanax) 0.25 mg Q6H PRN PO anxiety 05/20/17 10:30 05/23/17 00:54 Oxycodone HCl (Roxicodone) 10 mg Q4H PRN PO pain 1-5 05/20/17 11:00 05/21/17 09:07 Pantoprazole Sodium (Protonix) 40 mg DAILY PO 05/21/17 09:00 05/23/17 08:48 Senna/Docusate Sodium (Cary-Colace) 2 tab BID PO 05/20/17 21:00 05/23/17 08:48 Gabapentin (Neurontin) 600 mg Q8HR PO 05/21/17 14:00 05/23/17 05:37 Lactulose (Lactulose Liq) 30 ml BID PO 05/21/17 21:00 05/23/17 08:48 Oxycodone HCl (Roxicodone) 15 mg Q4H PRN PO PAIN SCALE 6 TO 10 05/21/17 11:00 05/23/17 08:48 Dexamethasone (Decadron) 1 mg Q12HR PO 05/22/17 09:00 05/23/17 08:49 Morphine Sulfate (Oramorph Sr) 90 mg Q8H PO 05/22/17 10:00 05/23/17 10:30 Ketorolac Tromethamine (Toradol Inj) 30 mg Q6HR IV PUSH 05/22/17 18:00 05/27/17 17:59 05/23/17 05:38 Hydroxyzine HCl (Atarax) 50 mg Q6H PO 05/22/17 21:00 05/23/17 08:49 Objective Remarks GENERAL: Anxious female, upright in bed getting ready to take a shower SKIN: Warm and dry. HEAD: Normocephalic. EYES: No injection or drainage. NECK: Supple, trachea midline. CARDIOVASCULAR: Regular rate and rhythm RESPIRATORY: Breath sounds equal bilaterally. No accessory muscle use. GASTROINTESTINAL: Abdomen soft, non-tender, nondistended. EXTREMITIES: No cyanosis NEUROLOGICAL: awake, alert. normal speech. moving extremities. Assessment/Plan Assessment 37 y/o female with newly diagnosed classical Hodgkin's lymphoma, high IPS. s/p C1 ABVD 05/19 Plan 1. continue Oramorph at 90mg PO q 8 hours with Oxycodone for breakthrough 2. continue xanax for anxiety 3. reduce decadron to once daily 4. add as needed tums for heartburn, continue protonix Attending Statement The exam, history, and the medical decision-making described in the above note were completed with the assistance of the mid-level provider. I reviewed and agree with the findings presented. I attest that I had a [id number] encounter with the patient on the same day, and personally performed and documented my assessment and findings in the medical record. doing better and pain less. She should be able to go home tomorrow after Dr. Lima sees and will require her next tx 14 days after previous tx. Jessica Easton May 23, 2017 11:06 Rodrigo Sweeney MD May 23, 2017 14:02
[2017-05-23 11:18] LABS: AUTOMATED NEUTROPHIL # 8.2 TH/MM3 (1.8-7.7); BASOPHIL % 0.1 % (0.0-2.0); EOSINOPHIL # 0.1 TH/MM3 (0-0.4); EOSINOPHIL % 0.7 % (0.0-4.0); HEMATOCRIT 31.2 % (35.0-46.0); HEMOGLOBIN 10.1 GM/DL (11.6-15.3); LYMPHOCYTE # 0.6 TH/MM3 (1.0-4.8); MEAN CELL VOLUME 79.3 FL (80.0-100.0); MEAN CORPUSCULAR HEMOGLOBIN 25.8 PG (27.0-34.0); MEAN CORPUSCULAR HGB CONC 32.5 % (32.0-36.0); MEAN PLATELET VOLUME 7.2 FL (7.0-11.0); MONO % 1.3 % (0.0-8.0); MONOCYTE # 0.1 TH/MM3 (0-0.9); NEUT % 90.9 % (16.0-70.0); PLATELET COUNT 593 TH/MM3 (150-450); RED BLOOD COUNT 3.93 MIL/MM3 (4.00-5.30); RED CELL DISTRIBUTION WIDTH 19.4 % (11.6-17.2)
--- NOTE | 2017-05-23 11:25 | HHI.PR ---
Subjective Remarks Pt's feels that her pain and anxiety are both better controlled today. Objective Vitals Vital Signs Date Time Temp Pulse Resp B/P (MAP) Pulse Ox O2 Delivery O2 Flow Rate FiO2 05/23/17 09:01 97.7 64 18 101/68 (79) 98 05/23/17 06:38 16 05/23/17 05:34 98.3 63 16 96/55 (69) 99 05/23/17 04:35 16 05/23/17 03:20 16 05/23/17 00:50 98.3 63 18 102/59 (73) 100 05/22/17 21:30 16 05/22/17 20:33 98.3 60 16 106/66 (79) 100 05/22/17 16:46 98.4 72 18 108/76 (87) 98 05/22/17 12:14 98.2 98 22 101/66 (78) 98 Result Diagram: 05/23/17 1018 05/21/17 0315 Imaging Last Impressions Abdomen X-Ray 05/19/17 0800 Signed Impressions: Service Date/Time: Friday, May 19, 2017 09:22 - CONCLUSION: 1. Mild constipation. No acute findings. Jeffery Tomas MD Bone Biopsy CT 05/18/17 0000 Signed Impressions: Service Date/Time: Thursday, May 18, 2017 14:08 - CONCLUSION: 1. Uncomplicated CT guided bone marrow aspirate. 2. Uncomplicated CT guided bone marrow biopsy. Asaf Diaz MD Port Line Insertion 05/17/17 0000 Signed Impressions: Service Date/Time: Wednesday, May 17, 2017 13:03 - CONCLUSION: Uncomplicated ultrasound and fluoroscopic guided implanted central venous port catheter placement as described in detail above. An 8 [place] Power port was placed. Jm Archer MD Thoracic Spine MRI 05/13/17 0000 Signed Impressions: Service Date/Time: May 17:55 - CONCLUSION: Signal abnormalities within the T3 and T4 vertebral body and right T4 pedicle with contrast enhancement. There is also T1 prolongation without contrast enhancement in the T8 vertebral body. The appearance is nonspecific but is abnormal and suggests possible metastatic disease. Amrit Machado MD Sacrum/Coccyx MRI 05/13/17 0000 Signed Impressions: Service Date/Time: May 17:55 - CONCLUSION: There are signal abnormalities in the superior S2 and bilateral sacroiliac with T2 prolongation and contrast enhancement. This suggests the possibility of metastatic lesions. Amrit Machado MD Lumbar Spine MRI 05/13/17 0000 Signed Impressions: Service Date/Time: May 17:55 - CONCLUSION: 1. No evidence of disc bulge or protrusion. 2. Triangular shaped area of T2 prolongation in the anterior inferior L1 vertebral body with correlating enhancement on the postcontrast study. This of uncertain significance, but would be an unusual shape and location for a metastatic lesion. Amrit Machado MD Hip and Pelvis X-Ray 05/12/17 1854 Signed Impressions: Service Date/Time: Friday, May 12, 2017 19:11 - CONCLUSION: Negative evaluation of the left hip. Amrit Machado MD Objective Remarks General: NAD, AAOx3 Chest: CTA Cardiac: Regular Abd: soft, NT, ND, +BS x 4 Ext: No edema A/P Problem List: (1) Hodgkin lymphoma ICD Codes: C81.90 - Hodgkin lymphoma, unspecified, unspecified site Status: Acute Plan: - Pt had reported unintentional weight loss ~20lbs since 03/2017, night sweats and had outpt CT Chest/Abd/Pelvis on 05/07/17 - Outpt Chest CT W/W/O IV contrast (05/07/17): - Innumerable masses scattered throughout the lungs. Numerous lymph nodes throughout the mediastinum and both hilar regions - Outpt CT Abd/pelvis W/W/O contrast (05/07/17): - There is widespread metastatic disease throughout the spleen, the liver and the retroperitoneum. Lymphoma most likely diagnosis versus conceivably melanoma or breast cancer. - Indeterminate sclerotic lesion in T12. - Liver with 2.7cm low-density lesion in the lateral segment of the left lobe of the liver. At least 5 other low-density lesions scattered throughout the liver concerning for metastatic disease. - Spleen is markedly heterogenous appearance with multiple masses. - Retroperitoneum with 2.2cm left periaortic lymph node below the left renal vein. At least 3 other retroperitoneal lymph nodes are present. - 3.0 x 1.6cm right inguinal lymph node. Some internal obturator lymphadenopathy on the right as well. - Pt underwent outpt CT guided liver biopsy and US guided LN biopsy on 05/12/17. - AFP, CA-19-9, CEA, Ca 125 are WNL - TSH, Free T4 are WNL - Pt has been having increased pain in her tailbone and back more recently. - Thoracic Spine MRI (05/13/17) --> Signal abnormalities within the T3 and T4 vertebral body and right T4 pedicle with contrast enhancement. There is also T1 prolongation without contrast enhancement in the T8 vertebral body. The appearance is nonspecific but is abnormal and suggests possible metastatic disease. - Lumbar Spine MRI (05/13/17) --> No evidence of disc bulge or protrusion. Triangular shaped area of T2 prolongation in the anterior inferior L1 vertebral body with correlating enhancement on the postcontrast study. This of uncertain significance, but would be an unusual shape and location for a metastatic lesion. - Sacral spine MRI (05/13/17) --> There are signal abnormalities in the superior S2 and bilateral sacroiliac with T2 prolongation and contrast enhancement. This suggests the possibility of metastatic lesions. - Pathology from lymph nodes shows classic Hodgkin lymphoma. liver bx nondiagnostic - Decadron per oncology - Increased Neurontin to 600mg TID started on 05/21 - 2D echo (05/15/17): - LV systolic function hyperdynamic with estimated EF 65-70% - Trace to mild tricuspid valve regurgitation - Estimated PA pressure 37.2mmHg - Pt had PFT with DLCO on 05/17 - [id number]-g-Rlac placement on 05/17 - BM biopsy on 05/18, pathology pending. - Pt received chemotherapy (05/19/17) - Gabapentin 600mg TID - Oramorph 90mg TID (increased to this dose 05/22) - oxycodone increased 10-15 mg prn & dilaudid q6h prn breakthrough pain - case d/w nursing. Try to to utilize PO medication only. - increased scheduled atrax to 50mg q6h - Xanax prn anxiety - will need adequate control of symptoms including pain, anxiety, and itching prior to discharge - anticipate d/c to home with C and home PT on Wednesday. - appreciate input from Gynecology, Dr. Acosta. Pt started on Provera. - Case d/w Oncology Service (05/23/17) (2) Symptomatic anemia ICD Codes: D64.9 - Anemia, unspecified Status: Acute Plan: - Pt is a 37 y/o female who was sent to the ED by her PCP for worsening anemia and leukocytosis on outpt labs. - Pt reported various complaints at the time of admission, including weight loss (Approx 20lbs in the last 3 months), intermittent dizziness, fevers, "bone pain", night sweats. - Pts outpt H/H has decreased to Hgb 7.4/Hct 22.8, MCV 77, MCH 25 on 05/11/17 and was recommended to report to the ED for further eval. - Pt had previously reported intermittent black stools and was noted to be Hemoccult positive in the ED. - She was seen by GI in 04/2016 and had an EGD with dilation for complaints of dysphagia and odynophagia. The EGD noted gastritis/superficial ulceration of the antrum, esophagitis in the distal esophagus, and food bolus in the stomach. - Pt was planned for outpt evaluation with colonoscopy which had not been performed yet. - Pt has family hx of colon cancer, father. - She has received 2 units of PRBCs at admission with H/H improving and stable - GI following - Pt had EGD on 05/14/17 which was negative. - Pt refused the colonoscopy - Monitor H/H - PPI - Supportive care (3) Fever ICD Codes: R50.9 - Fever, unspecified Status: Resolved Plan: - Pt has had reported night sweats and was noted to have fevers prior to admission - Blood cultures taken in the ED with NGTD - UA was negative - [place] to most likely be related to tumor fever or related to malignancy, no obvious signs of infection - Tylenol PRN (4) Weight loss, unintentional ICD Codes: R63.4 - Abnormal weight loss Status: Acute Plan: - See above. (5) Back pain ICD Codes: M54.9 - Dorsalgia, unspecified Status: Acute Plan: - Pt has been having increased pain in her tailbone and back more recently likely related to bone mets. - See above (6) Liver mass ICD Codes: R16.0 - Hepatomegaly, not elsewhere classified Plan: - Outpt biopsy was nondiagnostic (7) Constipation ICD Codes: K59.00 - Constipation, unspecified Plan: Patient on Cary-colace 2 tablets BID increase lactulose to BID add Fleets enema KUB requested Patient had one dose of relistor 05/20 plan to give additional Relistor after review of KUB Assessment and Plan Patient examined. Assessment and plan formulated with Lorena Storey PA-C. I agree with the above. Pt quite painful this morning. Pt can NOT be discharged to home until controlled with PO pain medication regimen. Poor bowel sounds today. Obtain KUB. If no evidence of obstruction, will give Relistor. scheduled Oramorph gabapentin increased prn oxycodone also increased. continue BID pericolace increase lactulose to BID Problem Qualifiers (1) Hodgkin lymphoma: Marcelo Brumfield DO May 23, 2017 11:25
[2017-05-23] MEDS ORDERED: PILL SPLITTER OTHER PRN (11:30)
[2017-05-23 11:42] LABS: BICARBONATE 32.2 MEQ/L (21.0-32.0); CALCIUM 8.5 MG/DL (8.5-10.1); CREATININE 0.63 MG/DL (0.50-1.00)
[2017-05-23 12:05] VITALS: BP 121/76; PULSE 69; RESP 16; TEMP 97; O2SAT 100
[2017-05-23 15:30] VITALS: BP 109/69; PULSE 64; RESP 18; TEMP 97.2; O2SAT 97
[2017-05-23 20:15] VITALS: BP 114/67; PULSE 75; RESP 16; O2SAT 97
[2017-05-24] VITALS: BP 106/64; PULSE 72; RESP 16; O2SAT 100
[2017-05-24] MEDS: HYDROmorphone HCL PF 2 MG/ML VIAL IV PUSH PRN ×3 (00:49→11:20)
[2017-05-24] MEDS: MORPHINE SULFATE 30 MG CONTROLLED RELEASE TAB PO SCH ×2 (00:49→09:31)
[2017-05-24] MEDS: hydrOXYzine HCL 50 MG TAB PO SCH ×2 (03:00→09:00)
[2017-05-24] MEDS: GABAPENTIN 300 MG CAP PO SCH (06:43)
[2017-05-24] MEDS: KETOROLAC TROMETHAMINE 30 MG/ML (IVP) VIAL IV PUSH SCH (06:44)
[2017-05-24] MEDS ORDERED: HYDR50TA94 PO (07:51)
[2017-05-24] MEDS ORDERED: MORP1TAB25 PO (07:51)
[2017-05-24] MEDS ORDERED: NEUR300C PO (07:51)
[2017-05-24] MEDS ORDERED: ALPR.25 PO (07:51)
[2017-05-24] MEDS ORDERED: OXYC-395 PO (07:51)
[2017-05-24] MEDS ORDERED: DEXA0.5T PO (07:53)
[2017-05-24 07:54] VITALS: BP 110/70; PULSE 66; RESP 18; TEMP 97.4; O2SAT 100
--- NOTE | 2017-05-24 07:54 | HHI.DCPOC ---
Discharge Care Plan Diagnosis: (1) Hodgkin lymphoma Goals to Promote Your Health * To prevent worsening of your condition and complications * To maintain your health at the optimal level Directions to Meet Your Goals Take your medications as prescribed Follow your dietary instruction Follow activity as directed Keep your appointments as scheduled Take your immunizations and boosters as scheduled If your symptoms worsen call your PCP, if no PCP go to Urgent Care Center or Emergency Room Smoking is Dangerous to Your Health. Avoid second hand smoke Call the 24-hour hour crisis hotline for domestic abuse at Rodrigo Padgett MD May 24, 2017 07:54
[2017-05-24] MEDS ORDERED: DEXAMETHASONE 0.5 MG TAB PO SCH (09:00)
[2017-05-24] MEDS: ALLOPURINOL 300 MG TAB PO SCH (09:00)
[2017-05-24] MEDS: PANTOPRAZOLE SOD 40 MG DELAYED RELEASE TAB PO SCH (09:30)
[2017-05-24] MEDS: DOCUSATE SODIUM 50 MG/SENNA 8.6 MG TAB PO SCH (09:31)
[2017-05-24] MEDS: SODIUM CHLORIDE 0.9% FLUSH 10 ML FLUSH IV FLUSH SCH (09:36)
--- NOTE | 2017-05-24 09:38 | HHI.DS ---
Discharge Summary Admission Date May 13, 2017 at 14:49 Discharge Date: May 24, 2017 Admitting Diagnosis symptomatic anemia (1) Hodgkin lymphoma Diagnosis: Principal ICD Codes: C81.90 - Hodgkin lymphoma, unspecified, unspecified site Status: Acute (2) Symptomatic anemia Diagnosis: Principal ICD Codes: D64.9 - Anemia, unspecified Status: Acute (3) Fever Diagnosis: Principal ICD Codes: R50.9 - Fever, unspecified Status: Resolved (4) Weight loss, unintentional Diagnosis: Secondary ICD Codes: R63.4 - Abnormal weight loss Status: Acute (5) Back pain Diagnosis: Secondary ICD Codes: M54.9 - Dorsalgia, unspecified Status: Acute (6) Liver mass Diagnosis: Secondary ICD Codes: R16.0 - Hepatomegaly, not elsewhere classified (7) Constipation ICD Codes: K59.00 - Constipation, unspecified Brief History 37 YO F presents to the ED for evaluation of multiple medical complaints. She endorses intermittent dizziness. She states that she woke up around 530am and had an oral temp of 103. She states that she also experienced stinging pain in the tailbone. No known injury. She complains of stinging pruritus of the back. She complains of left hip pain without trauma. She complains of intermittent right galvin pain which she states is "in the bone." She states that she has lost 20 pounds since March. She endorses night sweats for an unknown period of time. She endorses 3 week history of nonproductive cough. She denies CP, SOB , palpitations. She endorses chronic constipation,one bowel movement a week " for my lifetime." States her stools have been dark lately. She denies anorexia , N/V,abdominal pain, diarrhea. She denies risk of , states that LMP was " about a month ago." She is a current smoker. She endorse occasionally snorting cocaine. She endorses occasional alcohol use. She denies history of IVDA. She states that she had CT guided biopsies of a liver mass and a right inguinal lymph node this AM, was afebrile at that time. She was discharged from the procedure around 3pm today. She complains of right inguinal pain at the needle insertion site of the right inguinal region. She states that her PCP called her and told her to come to the ED for "low hemoglobin and problems with the biopsies." She is followed by Dr. Soriano. As outpatient found to have liver abnormality and rt inguinal lyph node abnormality and were biopsied today ,patient had 1 week ago hgb 8 now 7.5 and syptomatic admit for blood transfusion and further work up did have trace positive stools. REPLACED BY [facility] CBC/BMP: 05/23/17 1018 05/23/17 1018 Significant Findings Laboratory Tests Test 05/23/17 10:18 Red Blood Count 3.93 MIL/MM3 (4.00-5.30) Hemoglobin 10.1 GM/DL (11.6-15.3) Hematocrit 31.2 % (35.0-46.0) Mean Corpuscular Volume 79.3 FL (80.0-100.0) Mean Corpuscular Hemoglobin 25.8 PG (27.0-34.0) Red Cell Distribution Width 19.4 % (11.6-17.2) Platelet Count 593 TH/MM3 (150-450) Neutrophils (%) (Auto) 90.9 % (16.0-70.0) Lymphocytes (%) (Auto) 7.0 % (9.0-44.0) Neutrophils # (Auto) 8.2 TH/MM3 (1.8-7.7) Lymphocytes # (Auto) 0.6 TH/MM3 (1.0-4.8) Carbon Dioxide Level 32.2 MEQ/L (21.0-32.0) Hospital Course (1) Hodgkin lymphoma - Pt had reported unintentional weight loss ~20lbs since 03/2017, night sweats and had outpt CT Chest/Abd/Pelvis on 05/07/17 - Outpt Chest CT W/W/O IV contrast (05/07/17): - Innumerable masses scattered throughout the lungs. Numerous lymph nodes throughout the mediastinum and both hilar regions - Outpt CT Abd/pelvis W/W/O contrast (05/07/17): - There is widespread metastatic disease throughout the spleen, the liver and the retroperitoneum. Lymphoma most likely diagnosis versus conceivably melanoma or breast cancer. - Indeterminate sclerotic lesion in T12. - Liver with 2.7cm low-density lesion in the lateral segment of the left lobe of the liver. At least 5 other low-density lesions scattered throughout the liver concerning for metastatic disease. - Spleen is markedly heterogenous appearance with multiple masses. - Retroperitoneum with 2.2cm left periaortic lymph node below the left renal vein. At least 3 other retroperitoneal lymph nodes are present. - 3.0 x 1.6cm right inguinal lymph node. Some internal obturator lymphadenopathy on the right as well. - Pt underwent outpt CT guided liver biopsy and US guided LN biopsy on 05/12/17. - AFP, CA-19-9, CEA, Ca 125 are WNL - TSH, Free T4 are WNL - Pt has been having increased pain in her tailbone and back more recently. - Thoracic Spine MRI (05/13/17) --> Signal abnormalities within the T3 and T4 vertebral body and right T4 pedicle with contrast enhancement. There is also T1 prolongation without contrast enhancement in the T8 vertebral body. The appearance is nonspecific but is abnormal and suggests possible metastatic disease. - Lumbar Spine MRI (05/13/17) --> No evidence of disc bulge or protrusion. Triangular shaped area of T2 prolongation in the anterior inferior L1 vertebral body with correlating enhancement on the postcontrast study. This of uncertain significance, but would be an unusual shape and location for a metastatic lesion. - Sacral spine MRI (05/13/17) --> There are signal abnormalities in the superior S2 and bilateral sacroiliac with T2 prolongation and contrast enhancement. This suggests the possibility of metastatic lesions. - Pathology from lymph nodes shows classic Hodgkin lymphoma. liver bx nondiagnostic - 2D echo (05/15/17): - LV systolic function hyperdynamic with estimated EF 65-70% - Trace to mild tricuspid valve regurgitation - Estimated PA pressure 37.2mmHg - Pt had PFT with DLCO on 05/17 - [id number] placement on 05/17 - BM biopsy on 05/18, pathology pending - Decadron per oncology. continue current 1mg dose and allow oncology to taper as needed - Increased Neurontin to 600mg TID started on 05/21 - Pt received chemotherapy (05/19/17) - Oramorph 90mg TID (increased to this dose 05/22) - oxycodone increased 10-15 mg prn - increased scheduled atrax to 50mg q6h - Xanax prn anxiety - appreciate input from Gynecology, Dr. Acosta. - scripts written. 2 week supply of pain meds then reassess in clinic dc today after seen by oncology (2) Symptomatic anemia ICD Codes: D64.9 - Anemia, unspecified Status: Acute Plan: - Pt is a 37 y/o female who was sent to the ED by her PCP for worsening anemia and leukocytosis on outpt labs. - Pt reported various complaints at the time of admission, including weight loss (Approx 20lbs in the last 3 months), intermittent dizziness, fevers, "bone pain", night sweats. - Pts outpt H/H has decreased to Hgb 7.4/Hct 22.8, MCV 77, MCH 25 on 05/11/17 and was recommended to report to the ED for further eval. - Pt had previously reported intermittent black stools and was noted to be Hemoccult positive in the ED. - She was seen by GI in 04/2016 and had an EGD with dilation for complaints of dysphagia and odynophagia. The EGD noted gastritis/superficial ulceration of the antrum, esophagitis in the distal esophagus, and food bolus in the stomach. - Pt was planned for outpt evaluation with colonoscopy which had not been performed yet. - Pt has family hx of colon cancer, father. - She has received 2 units of PRBCs at admission with H/H improving and stable - GI following - Pt had EGD on 05/14/17 which was negative. - Pt refused the colonoscopy - Monitor H/H - PPI - Supportive care (3) Fever ICD Codes: R50.9 - Fever, unspecified Status: Resolved Plan: - Pt has had reported night sweats and was noted to have fevers prior to admission - Blood cultures taken in the ED with NGTD - UA was negative - [place] to most likely be related to tumor fever or related to malignancy, no obvious signs of infection - Tylenol PRN (4) Weight loss, unintentional ICD Codes: R63.4 - Abnormal weight loss Status: Acute Plan: - See above. (5) Back pain ICD Codes: M54.9 - Dorsalgia, unspecified Status: Acute Plan: - Pt has been having increased pain in her tailbone and back more recently likely related to bone mets. - See above (6) Liver mass ICD Codes: R16.0 - Hepatomegaly, not elsewhere classified Plan: - Outpt biopsy was nondiagnostic (7) Constipation ICD Codes: K59.00 - Constipation, unspecified Pt Condition on Discharge: Stable Discharge Disposition: Discharge Home Discharge Instructions DIET: Follow Instructions for: As Tolerated, No Restrictions Activities you can perform: Regular-No Restrictions Follow up Referrals: [facility] @ [place] with Deejay Acosta MD Oncology - [address] Tran Lima PCP Follow-up - [address] Soriano New Medications: Norethindrone (Ortho Micronor-35) 0.35 Mg Tab 1 TAB PO DAILY for Control for 30 Days, #1 PACK 11 Refills Alprazolam (Xanax) 0.25 Mg Tab 0.25 MG PO Q8HR PRN for anxiety, #30 TAB Dexamethasone (Dexamethasone) 0.5 Mg Tab 1 MG PO DAILY for Inflammation for 30 Days, #60 TAB Gabapentin (Neurontin) 300 Mg Cap 600 MG PO Q8HR for Pain Management, #180 CAP Hydroxyzine HCl (Hydroxyzine HCl) 50 Mg Tab 50 MG PO Q6H for Itching for 30 Days, #120 TAB Morphine ER (Morphine ER) 30 Mg Tab 90 MG PO Q8H for Pain Management, #126 TAB Oxycodone (Oxycodone) 10 Mg Tab 10 MG PO Q4H PRN for pain, #150 TAB Continued Medications: Calcium Gluconate (Calcium Gluconate) 45 Mg Calcium (500 Mg) Tab 500 MG PO DAILY for Calcium Supplement, TAB 0 Refills 1 gram of salt is 93 mg elemental calcium. Cyanocobalamin (Vitamin B-12) 500 Mcg Tab 500 MCG PO DAILY for Nutritional Supplement, #1 BOTTLE 0 Refills Ferrous Sulfate (Ferrous Sulfate) 325 Mg (65 Mg Iron) Tablet 325 MG PO DAILY for Nutritional Supplement, #30 TAB 0 Refills Fish Oil-Cholecalciferol (Fish Oil + D3) 1,200-1,000 Mg-Unit Cap 1 CAP PO DAILY for Nutritional Supplement, #30 CAP 0 Refills Levocetirizine Dihydrochloride (Xyzal) 2.5 Mg/5 Ml Solution 2.5 MG PO DAILY Magnesium Oxide (Magnesium Oxide) 250 Mg Tab 250 MG PO DAILY, TAB 0 Refills Ranitidine (Ranitidine) 150 Mg Tab 150 MG PO DAILY for Heartburn Management, #30 TAB 0 Refills Saccharomyces Boulardii (Probiotic) 250 Mg Cap 250 MG PO BID for Nutritional Supplement, CAP 0 Refills Discontinued Medications: Hydroxyzine HCl (Hydroxyzine HCl) 50 Mg Tab 50 MG PO HS, TAB 0 Refills Meloxicam (Meloxicam) 7.5 Mg Tab 7.5 MG PO DAILY for Arthritis Pain, TAB 0 Refills Rodrigo Padgett MD May 24, 2017 09:38
[2017-05-24] MEDS ORDERED: PANT40TA3 PO (09:39)
[2017-05-24] MEDS ORDERED: ALLO300 PO (11:38)
--- NOTE | 2017-05-24 11:44 | PD.ONC.PN ---
Subjective Subjective Remarks Afebrile overnight Patient reports she is excited to be going home today Had some pain overnight due to her pain medication coming in late Objective Data Date Time Temp Pulse Resp B/P (MAP) Pulse Ox O2 Delivery O2 Flow Rate FiO2 05/24/17 07:54 97.4 66 18 110/70 (83) 100 05/24/17 07:40 16 05/24/17 07:40 16 05/24/17 06:43 18 05/24/17 01:27 16 05/24/17 00:25 16 05/24/17 00:00 72 16 106/64 (78) 100 05/23/17 20:15 75 16 114/67 (83) 97 05/23/17 15:30 97.2 64 18 109/69 (82) 97 05/23/17 12:05 97.0 69 16 121/76 (91) 100 05/24/17 05/24/17 05/24/17 07:00 15:00 23:00 Intake Total 1440 ml Balance 1440 ml Result Diagram: 05/23/17 1018 05/23/17 1018 Administered Medications Medications (Trade) Dose Ordered Sig/Yasir Route PRN Reason Start Time Stop Time Status Last Admin Dose Admin Sodium Chloride (NS Flush) 2 ml BID IV FLUSH 05/13/17 09:00 05/24/17 09:36 Acetaminophen (Tylenol) 650 mg Q4H PRN PO TEMP > 100.4 05/12/17 21:30 05/15/17 23:25 Magnesium Hydroxide (Milk Of Magnesia Liq) 30 ml Q12H PRN PO Mild constipation 05/12/17 21:30 05/19/17 05:38 Allopurinol (Zyloprim) 300 mg DAILY PO 05/16/17 09:00 05/24/17 09:00 Hydroxyzine HCl (Atarax) 25 mg Q6H PRN PO breakthrough itch 05/16/17 09:00 05/22/17 00:38 Hydromorphone HCl (Dilaudid Pf Inj) 1 mg Q6H PRN IV PUSH BREAKTHROUGH PAIN 05/20/17 10:00 05/24/17 11:20 Alprazolam (Xanax) 0.25 mg Q6H PRN PO anxiety 05/20/17 10:30 05/23/17 19:34 Oxycodone HCl (Roxicodone) 10 mg Q4H PRN PO pain 1-5 05/20/17 11:00 05/23/17 22:04 Pantoprazole Sodium (Protonix) 40 mg DAILY PO 05/21/17 09:00 05/24/17 09:30 Senna/Docusate Sodium (Cary-Colace) 2 tab BID PO 05/20/17 21:00 05/24/17 09:31 Gabapentin (Neurontin) 600 mg Q8HR PO 05/21/17 14:00 05/24/17 06:43 Oxycodone HCl (Roxicodone) 15 mg Q4H PRN PO PAIN SCALE 6 TO 10 05/21/17 11:00 05/24/17 09:31 Morphine Sulfate (Oramorph Sr) 90 mg Q8H PO 05/22/17 10:00 05/24/17 09:31 Ketorolac Tromethamine (Toradol Inj) 30 mg Q6HR IV PUSH 05/22/17 18:00 05/27/17 17:59 05/24/17 06:44 Hydroxyzine HCl (Atarax) 50 mg Q6H PO 05/22/17 21:00 05/24/17 09:00 Medroxyprogesterone Acetate (Provera) 2.5 mg DAILY PO 05/23/17 10:00 05/23/17 18:21 Dexamethasone (Decadron) 1 mg DAILY PO 05/24/17 09:00 05/24/17 09:31 Objective Remarks GENERAL: Thin younger female sitting up in bed in no obvious distress SKIN: Warm and dry. HEAD: Normocephalic. EYES: No scleral icterus. No injection or drainage. NECK: Supple, trachea midline. No JVD or lymphadenopathy. CARDIOVASCULAR: Regular rate and rhythm without murmurs. RESPIRATORY: Breath sounds equal bilaterally. No accessory muscle use. GASTROINTESTINAL: Abdomen soft, non-tender, nondistended. EXTREMITIES: No cyanosis, or edema. MUSCULOSKELETAL: Adequate muscle tone. NEUROLOGICAL: No obvious focal deficit. Awake, alert, and oriented x3. Assessment/Plan Problem List: (1) Hodgkin lymphoma ICD Codes: C81.90 - Hodgkin lymphoma, unspecified, unspecified site Status: Acute Plan: 05/24/17: Clear for discharge from oncology standpoint. Called new patient referrals and they state they will call patient this week when an appointment can be arranged with Dr. Lima. 05/21/17: continue Oramorph + oxycodone for breakthrough. clear for discharge when pain controlled. 05/20/17: s/p ABVD yesterday. discussed changing pain medications to PO and addressing constipation. discussed that she can go home when her pain is controlled. 05/19/17 BM biopsy results still pending. Proceed with C1D1 ABVD. Discussed risks and benefits, no more questions at present. 05/18/17: [facility] oncology consult, bone marrow biopsy today. --HIV negative --Pulmonary function test: VOLUMES DYNAMIC: FVC and FEV1 normal. STATIC: RV and FRC mildly increased; TLC normal. FLOWS: FEV1% normal; FEF 25-75 severely reduced. DIFFUSION: Low normal. IMPRESSION: --Very mild obstructive ventilatory defect in the terminal airways with mild hyperinflation. There is improvement post-bronchodilator. --Echocardiogram shows EF of 65-70% HPI: 4 months ago in February she had developed pneumonia-like symptoms with cough. +running fever. goes up to 103. ++drenching night sweats. lost 20 pounds in the last 4 months. complaining of back pain and severe bone pain. CAT of the chest, abdomen and pelvis was done which showed lymphadenopathy, multiple lesions in the lung, spleen and liver. biopsy of the liver mass and also right inguinal lymph node=classical Hodgkin's lymphoma. --Miladis consulted ([facility]) for possible palliative xrt to painful back lesions : chemotherapy regimen and radiation treatment cannot be delivered at the same time. If her pain is not improving, consider delivering radiation treatment perhaps just prior to her next chemotherapy--could try to limit her radiation treatment to 5 fractions. do not believe she is a candidate for single fraction treatment. (2) Insomnia ICD Codes: G47.00 - Insomnia, unspecified Plan: --on xanax PO PRN Assessment 37 y/o female with newly diagnosed classical Hodgkin's lymphoma, high IPS. s/p C1 ABVD 05/19 Plan 1. Clear for discharge from oncology standpoint 2. Continue p.o. pain medications and allopurinol 3. Patient will follow-up with Dr. Lima for future chemo planning Attending Statement Agree with above, pt DC before could be seen, plan fu as out pt to cont with next chemo in next week. Problem Qualifiers (1) Hodgkin lymphoma: Candace Woo May 24, 2017 11:44 Tran Lima MD May 24, 2017 17:47
--- NOTE | 2017-05-28 11:11 | RSPPFT ---
DATE OF PROCEDURE: 05/15/17 COMMENTS: Spirometry demonstrates an FEV1 of 3.4 at 78% of predicted, FVC of 4.1 at 100%, FEV1/FVC ratio is 19%. The FEF 25-75 is 23%. Post-bronchodilator study was not conducted. Flow volume loops suggest severe obstruction. IMPRESSION: 1. Severe obstructive airways disease.
== END 2017-05-24 11:51 | disposition home or self-care (01) | DRG 842 ==
LOC: NEPE 16:21 → NEDA 19:49 → NEPHCDU 21:29 → OBSVTOIN 05-13 14:49 → N06A 05-14 13:42 → HCIN 05-14 21:25
PROVIDERS: ADMIT Hospitalist; ATTEND Hospitalist
PROC: 30233N1 Transfusion of Nonautologous Red Blood Cells into Peripheral Vein, Percutaneous Approach (ICD-10-PCS; 2017-05-12)
PROC: 0JH60WZ Insertion of Totally Implantable Vascular Access Device into Chest Subcutaneous Tissue and Fascia, Open Approach (ICD-10-PCS; 2017-05-17)
PROC: 05HM33Z Insertion of Infusion Device into Right Internal Jugular Vein, Percutaneous Approach (ICD-10-PCS; 2017-05-17)
PROC: 07DR3ZX Extraction of Iliac Bone Marrow, Percutaneous Approach, Diagnostic (ICD-10-PCS; principal; 2017-05-18)
PROC: 3E03305 Introduction of Other Antineoplastic into Peripheral Vein, Percutaneous Approach (ICD-10-PCS; 2017-05-19)
DX: C81.28 Mixed cellularity Hodgkin lymphoma, lymph nodes of multiple sites (principal); R16.0 Hepatomegaly, not elsewhere classified; F32.9 Major depressive disorder, single episode, unspecified; F14.90 Cocaine use, unspecified, uncomplicated; F06.4 Anxiety disorder due to known physiological condition; D50.9 Iron deficiency anemia, unspecified; C81.2 Mixed cellularity Hodgkin lymphoma; K59.09 Other constipation; R19.5 Other fecal abnormalities; K21.0 Gastro-esophageal reflux disease with esophagitis; Z87.891 Personal history of nicotine dependence; R61 Generalized hyperhidrosis; Z80.0 Family history of malignant neoplasm of digestive organs; L29.9 Pruritus, unspecified; G47.00 Insomnia, unspecified; R63.4 Abnormal weight loss; M54.9 Dorsalgia, unspecified; R50.9 Fever, unspecified
CPT/HCPCS: 36430; 36561; 38222; 38505; 47000; 72157; 72158; 72197; 73502; 74018; 76937; 76942; 77001; 77012; 80048; 80053; 80074; 80307; 81001; 82103; 82105; 82378; 82390; 82607; 82728; 82746; 83020; 83520; 83540; 83550; 83615; 84439; 84443; 84550; 84703; 85025; 85097; 85610; 85652; 85730; 86038; 86255; 86301; 86304; 86703; 86850; 86900; 86901; 86920; 87040; 88305; 88307; 88311; 88313; 88341; 88342; 93306; 94010; 94060; 94726; 94729; 96361; 96374; 96375; 96376; 99152; 99153; A9579; C1729; C1788; C1830; C9113; G0378; J0690; J1100; J1170; J1200; J1626; J1642; J1756; J1885; J2060; J2212; J2250; J2270; J2370; J2405; J3010; J3370; J3410; J7030; J7050; J7120; J8540; J9000; J9040; J9130; J9360; P9016; Q0163